=== PATIENT | female | born 1970 | race Caucasian/White ===

== ENCOUNTER 2018-08-26 11:59 | Emergency (ER) | payer OTHER ==
[~2018-08-26] VITALS: Ht 162.6 cm; Wt 117.0 kg
[~2018-08-26 11:59] MED LIST: ALPR2TAB2 PO; DICY20TA3 PO; DICY20TA30 PO; DULO60CA6 PO; FERR325T58 PO; HYDR-3165 PO; KETO10TA PO; LANS30CA66 PO; MESA10003 RC; MIRT15TA PO; NAPR-695 PO; ONDA4TAB10 SL; ONDA4TAB12 PO; ONDA8TAB12 PO; OXYC1TAB15 PO; POLY17PO5 PO; PRAM15FO5 TP; PROM25TA10 PO; SIMV40TA PO; TRAM50TA PO
[2018-08-26] MEDS ORDERED: IBUPROFEN 600 MG TABLET. PO ONE (12:15)
[2018-08-26] MEDS ORDERED: ONDANSETRON PF 4 MG/2 ML VIAL. IV ONE (12:15)
[2018-08-26] MEDS ORDERED: IV NORMAL SALINE 1,000ML 1,000 ML IV ONE (12:15)
--- NOTE | 2018-08-26 12:21 | PHYS DOC ---
Past History Past Medical History: Anemia, Anxiety, GERD, High Cholesterol, Kidney Stones, Other Past Surgical History: Appendectomy, Cholecystectomy, Hysterectomy, Other Smoking: Non-smoker, Quit Greater Than 1 Year Alcohol Use: Occasionally Drug Use: None Adult General Chief Complaint Chief Complaint: FLANK PAIN HPI HPI Patient is a 47-year-old female presents complaining of right flank pain that radiates to her right front. It waxes and wanes. Started approximately 9 AM. No relief with acetaminophen. No nausea or vomiting. No dysuria, urgency, or frequency. No fever. Similar to her previous kidney stone on the right side. Pain is moderate to severe in intensity when it is at its maximum. She denies any diarrhea, black tarry stools, nor blood in her stool. No nausea or vomiting.[] Review of Systems Review of Systems Constitutional: Denies fever or chills [] Eyes: Denies change in visual acuity, redness, or eye pain [] HENT: Denies nasal congestion or sore throat [] Respiratory: Denies cough or shortness of breath [] Cardiovascular: No chest pain or palpitations[] GI: Denies nausea, vomiting, bloody stools or diarrhea, see history of present illness [] : Denies dysuria or hematuria [] Musculoskeletal: Denies back pain or joint pain [] Integument: Denies rash or skin lesions [] Neurologic: Denies headache, focal weakness or sensory changes [] Endocrine: Denies polyuria or polydipsia [] All other systems were reviewed and found to be within normal limits, except as documented in this note. Current Medications Current Medications Current Medications Medications (Trade) Dose Ordered Sig/Enrike Start Time Stop Time Status Last Admin Dose Admin Ibuprofen (Motrin) 600 mg 1X ONCE 08/26/18 12:15 08/26/18 12:16 UNV Ondansetron HCl (Zofran) 4 mg 1X ONCE 08/26/18 12:15 08/26/18 12:16 UNV Sodium Chloride 1,000 ml @ 1,000 mls/hr 1X ONCE 08/26/18 12:15 08/26/18 13:14 UNV Allergies Allergies Allergies Coded Allergies Type Severity Reaction Last Updated Verified cephalexin Allergy Intermediate "ears burn/rash on neck" 08/26/18 Yes ketorolac Allergy Unknown Hives 08/26/18 Yes prochlorperazine Allergy Unknown 08/26/18 Yes Physical Exam Physical Exam Constitutional: Well developed, well nourished, no acute distress, non-toxic ap pearance. [] HENT: Normocephalic, atraumatic, bilateral external ears normal, oropharynx moist, no oral exudates, nose normal. [] Eyes: PERRLA, EOMI, conjunctiva normal, no discharge. [] Neck: Normal range of motion, no tenderness, supple, no stridor. [] Cardiovascular:Heart rate regular rhythm, no murmur [] Lungs & Thorax: Bilateral breath sounds clear to auscultation [] Abdomen: Bowel sounds normal, soft, no tenderness, no masses, no pulsatile masses. [] Skin: Warm, dry, no erythema, no rash. [] Back: No tenderness, mild right CVA tenderness. [] Extremities: No tenderness, no cyanosis, no clubbing, ROM intact, no edema. [] Neurologic: Alert and oriented X 3, normal motor function, normal sensory function, no focal deficits noted. [] Psychologic: Affect normal, judgement normal, mood normal. [] Current Patient Data Vital Signs Vital Signs Date Time Temp Pulse Resp B/P (MAP) Pulse Ox O2 Delivery O2 Flow Rate FiO2 08/26/18 12:08 98.8 160 18 99 Room Air EKG EKG [] Radiology/Procedures Radiology/Procedures PROCEDURE: CT ABDOMEN PELVIS WO CONTRAST CT scan of the abdomen and pelvis without contrast 08/26/2018 CLINICAL HISTORY: Right flank pain. TECHNIQUE: Unenhanced, contiguous, 3 mm axial sections were obtained to the abdomen and pelvis. One or more of the following individualized dose reduction techniques were utilized for this study: 1. Automated exposure control. 2. Adjustment of the mA and/or kV according to patient size. 3. Use of iterative reconstruction technique. FINDINGS: Comparison study is dated 04/06/2015 Images through the lung bases are within normal limits. The liver parenchyma has a decreased attenuation consistent with fatty infiltration. The spleen, pancreas, and adrenal glands are within normal limits. No renal or ureteral calculus is seen. There is no evidence of obstruction of either collecting system. Atherosclerotic calcification of the abdominal aorta and its branches is noted. The abdominal aorta tapers normally. Surgical clips are seen within the gallbladder fossa consistent with a cholecystectomy. Surgical clips are seen medial to the cecum consistent with an appendectomy. No free fluid or free air is seen within the abdomen. There is no evidence of bowel obstruction. A small fat-containing umbilical hernia is seen. This measures 2.6 cm in size. Images through the pelvis demonstrate the urinary bladder distended with urine. No free fluid is seen. Very mild S-shaped curvature of the thoracolumbar spine is noted. Degenerative changes are seen involving the lower thoracic and throughout the lumbar spine and both hips. IMPRESSION: No acute abnormality is seen. [] Course & Med Decision Making Course & Med Decision Making Pertinent Labs and Imaging studies reviewed. (See chart for details) Medical decision making: There is no evidence of obstruction, perforation, obstructing stone, nor urinary tract infection/pyelonephritis. No evidence of a surgical pathology. We'll address her pain with oral, outpatient pain medicine. ED course: Patient arrived, was placed in bed, and tolerated exam well. She was transported to and from radiology with any complications. After the return of the laboratory and imaging findings, these were discussed with the patient voiced understanding. All questions were answered. She was discharged in improved condition.[] Dragon Disclaimer Dragon Disclaimer This electronic medical record was generated, in whole or in part, using a voice recognition dictation system. Departure Departure: Impression: Primary Impression: Right flank pain Disposition: 01 HOME, SELF-CARE Condition: IMPROVED Referrals: FRANCIS SANCHEZ MD (PCP) Follow-up in 2 days Patient Instructions: Flank Pain Additional Instructions: Follow-up with your regular doctor in 2 days. Drink plenty of fluids. Return to the ER if worsening discomfort or any other concerns. Scripts Tramadol Hcl (TRAMADOL HCL) 50 Mg Tablet 50 MG PO PRN Q6HRS PRN for PAIN, #20 TAB Prov: JANAE THIBODEAUX DO 08/26/18 Phenazopyridine Hcl (PYRIDIUM) 100 Mg Tablet 100 MG PO TID for flank pain for 2 Days, #6 TAB Prov: JANAE THIBODEAUX DO 08/26/18 Meloxicam (MELOXICAM) 7.5 Mg Tablet 7.5 MG PO DAILY for PAIN, #20 TAB Prov: JANAE THIBODEAUX DO 08/26/18 Hyoscyamine Sulfate (LEVSIN) 0.125 Mg Tablet 0.125 MG PO QID for abdominal pain/cramping, #30 TAB Prov: JANAE THIBODEAUX DO 08/26/18 JANAE THIBODEAUX DO Aug 26, 2018 12:21
--- NOTE | 2018-08-26 12:49 | RAD ---
CT scan of the abdomen and pelvis without contrast 08/26/2018 CLINICAL HISTORY: Right flank pain. TECHNIQUE: Unenhanced, contiguous, 3 mm axial sections were obtained to the abdomen and pelvis. One or more of the following individualized dose reduction techniques were utilized for this study: 1. Automated exposure control. 2. Adjustment of the mA and/or kV according to patient size. 3. Use of iterative reconstruction technique. FINDINGS: Comparison study is dated 04/06/2015 Images through the lung bases are within normal limits. The liver parenchyma has a decreased attenuation consistent with fatty infiltration. The spleen, pancreas, and adrenal glands are within normal limits. No renal or ureteral calculus is seen. There is no evidence of obstruction of either collecting system. Atherosclerotic calcification of the abdominal aorta and its branches is noted. The abdominal aorta tapers normally. Surgical clips are seen within the gallbladder fossa consistent with a cholecystectomy. Surgical clips are seen medial to the cecum consistent with an appendectomy. No free fluid or free air is seen within the abdomen. There is no evidence of bowel obstruction. A small fat-containing umbilical hernia is seen. This measures 2.6 cm in size. Images through the pelvis demonstrate the urinary bladder distended with urine. No free fluid is seen. Very mild S-shaped curvature of the thoracolumbar spine is noted. Degenerative changes are seen involving the lower thoracic and throughout the lumbar spine and both hips. IMPRESSION: No acute abnormality is seen. Electronically signed by: Elvin Braswell MD (08/26/2018 12:46 PM) [id number]
[2018-08-26 12:51] LABS: COLOR,URINE YELLOW
[2018-08-26 12:52] LABS: BACTERIA,URINE 0 /HPF (0-FEW); BILIRUBIN,URINE NEG (NEG); CLARITY,URINE HAZY; GLUCOSE,URINE NEG (NEG); NITRITE,URINE NEG (NEG); RBC,URINE >40 /HPF (0-2); SQUAMOUS EPITHELIAL CELL,UR OCC /LPF; UROBILINOGEN,URINE 0.2 mg/dL (0.2 mg/dL); WBC,URINE 0 /HPF (0-4)
[2018-08-26 13:19] LABS: CALCIUM 8.8 mg/dL (8.5-10.1); CREATININE 0.8 mg/dL (0.6-1.0); GFR 76.2; POTASSIUM 3.8 mmol/L (3.5-5.1)
[2018-08-26 13:38] LABS: BASO % 0 % (0-3); EOS # 0.1 x10^3/uL (0.0-0.7); EOS % 2 % (0-3); HEMATOCRIT 24.1 % (36.0-47.0); HEMOGLOBIN 7.4 g/dL (12.0-15.5); LYMPH # 0.5 x10^3/uL (1.0-4.8); LYMPH % 10 % (24-48); MEAN CORPUSCULAR HEMOGLOBIN 21 pg (25-35); MEAN CORPUSCULAR HGB CONC 31 g/dL (31-37); MEAN CORPUSCULAR VOLUME 69 fL (79-100); MONO # 0.3 x10^3/uL (0.0-1.1); MONO % 7 % (0-9); NEUT % 81 % (31-73); PLATELET COUNT 280 x10^3/uL (140-400); RED BLOOD COUNT 3.49 x10^6/uL (3.50-5.40); RED CELL DISTRIBUTION WIDTH 17.6 % (11.5-14.5); WHITE BLOOD COUNT 4.9 x10^3/uL (4.0-11.0)
[2018-08-26] MEDS ORDERED: PHEN100T82 PO (13:52)
[2018-08-26] MEDS ORDERED: HYOS0.1264 PO (13:52)
[2018-08-26] MEDS ORDERED: MELO7.5T29 PO (13:52)
[2018-08-26] MEDS ORDERED: TRAM50TA PO (14:07)
[2018-08-26 14:15] VITALS: BP 158/102
[2018-08-26 14:49] LABS: ANISOCYTOSIS MOD; HYPOCHROMIA MOD; MICROCYTOSIS MOD; PLT ESTIMATE ADEQUATE (ADEQUATE)
== END 2018-08-26 14:26 | disposition home or self-care (01) ==
LOC: ER 11:59
DX: R10.9 Unspecified abdominal pain (principal); F41.9 Anxiety disorder, unspecified; K21.9 Gastro-esophageal reflux disease without esophagitis; E78.00 Pure hypercholesterolemia, unspecified; Z87.442 Personal history of urinary calculi; Z86.2 Personal history of diseases of the blood and blood-forming organs and certain disorders involving the immune mechanism; Z90.49 Acquired absence of other specified parts of digestive tract; Z90.89 Acquired absence of other organs; Z90.710 Acquired absence of both cervix and uterus; Z87.891 Personal history of nicotine dependence; Z88.1 Allergy status to other antibiotic agents; Z88.8 Allergy status to other drugs, medicaments and biological substances
CPT/HCPCS: 36415; 74176; 80048; 81001; 85025; 96374; 99285; J2405; J7030

== ENCOUNTER 2019-01-22 18:14 | Emergency (ER) | payer OTHER ==
[~2019-01-22] VITALS: Ht 162.6 cm; Wt 113.4 kg
[~2019-01-22 18:14] MED LIST changes: +HYOS0.1264 PO; +MELO7.5T29 PO; +PHEN100T82 PO
[2019-01-22] MEDS ORDERED: IV NORMAL SALINE 1,000ML 1,000 ML IV SCH (19:20)
--- NOTE | 2019-01-22 19:26 | PHYS DOC ---
Past History Past Medical History: Anemia, Anxiety, GERD, High Cholesterol, Kidney Stones, Other Additional Past Medical Histor: ulcerative colitis Past Surgical History: Appendectomy, Cholecystectomy, Hysterectomy, Other Smoking: Non-smoker, Quit Greater Than 1 Year Alcohol Use: Occasionally Drug Use: None Adult General Chief Complaint Chief Complaint: ABDOMINAL PAIN HPI HPI Patient is a 48-year-old female presents with left lower quadrant abdominal pain that began at approximately 8:00 this morning. She has a history of ulcerative colitis but reports that this pain is not like her usual ulcerative colitis discomfort. She is currently on sulfasalazine. Notes that she had some blood in her stool. Nothing she has done has made the pain any better or any worse. She denies any dysuria or hematuria. Denies any travel. Denies any fever. Denies any sick family members with similar symptoms. Surgical history is significant for cholecystectomy, appendectomy, and hysterectomy.[] Review of Systems Review of Systems Constitutional: Denies fever or chills [] Eyes: Denies change in visual acuity, redness, or eye pain [] HENT: Denies nasal congestion or sore throat [] Respiratory: Denies cough or shortness of breath [] Cardiovascular: No chest pain or palpitations[] GI: See history of present illness[] : Denies dysuria or hematuria [] Musculoskeletal: Denies back pain or joint pain [] Integument: Denies rash or skin lesions [] Neurologic: Denies headache, focal weakness or sensory changes [] Endocrine: Denies polyuria or polydipsia [] All other systems were reviewed and found to be within normal limits, except as documented in this note. Allergies Allergies Allergies Coded Allergies Type Severity Reaction Last Updated Verified cephalexin Allergy Intermediate "ears burn/rash on neck" 08/26/18 Yes ketorolac Allergy Unknown Hives 08/26/18 Yes prochlorperazine Allergy Unknown 08/26/18 Yes Physical Exam Physical Exam Constitutional: Well developed, well nourished, no acute distress, non-toxic appearance. [] HENT: Normocephalic, atraumatic, bilateral external ears normal, oropharynx moist, no oral exudates, nose normal. [] Eyes: PERRLA, EOMI, conjunctiva normal, no discharge. [] Neck: Normal range of motion, no tenderness, supple, no stridor. [] Cardiovascular:Heart rate regular rhythm, no murmur [] Lungs & Thorax: Bilateral breath sounds clear to auscultation [] Abdomen: Bowel sounds normal, soft, tenderness in left lower quadrant, no rebound, no guarding, no rigidity, able to sit up and lie back without any difficulty, no masses, no pulsatile masses. Rectal exam performed with catapult and arresting gear officer: No external lesions, no stool in the vault, no significant tenderness on rectal exam. No gross bleeding.[] Skin: Warm, dry, no erythema, no rash. [] Back: No tenderness, no CVA tenderness. [] Extremities: No tenderness, no cyanosis, no clubbing, ROM intact, no edema. [] Neurologic: Alert and oriented X 3, normal motor function, normal sensory function, no focal deficits noted. [] Psychologic: Affect normal, judgement normal, mood normal. [] EKG EKG [] Radiology/Procedures Radiology/Procedures PROCEDURE: CT ABD PELV W/ IV CONTRST ONLY CT abdomen pelvis with contrast dated 01/22/2019. Comparison made to 08/26/2018. CLINICAL INDICATION: Left lower quadrant pain. History of ulcerative colitis. TECHNIQUE: Contiguous axial imaging the abdomen and pelvis performed after the administration of 75 cc Omnipaque 300. One or more of the following individualized dose reduction techniques were utilized for this examination: 1. Automated exposure control 2. Adjustment of the mA and/or kV according to patient size 3. Use of iterative reconstruction technique. FINDINGS: Limited images of lung bases are clear. Heart size within normal limits. No pleural or pericardial effusion. Diffuse low-density of the liver, compatible with fatty infiltration. No apparent mass. Biliary tree normal in caliber. The gallbladder is surgically absent. Spleen is normal in size. Pancreas, adrenal glands and kidneys are unremarkable. No hydronephrosis. Unopacified GI tract normal in caliber and contour. No focal bowel wall thickening. There is some fatty replacement of the submucosa involving the rectum and sigmoid. No acute inflammatory changes. The appendix is surgically absent. Small bowel unremarkable. No adenopathy or ascites. Abdominal aorta normal in caliber. Small periumbilical ventral hernia containing only fat. Images of pelvis show nondistended urinary bladder. The uterus is surgically absent. No free fluid or lymphadenopathy. Bone windows show no acute findings. Multilevel spondylosis. IMPRESSION: 1. No acute abnormality of abdomen or pelvis. 2. There is some fatty replacement of the submucosa involving the rectosigmoid colon, likely related to prior episodes of inflammation. There are no acute inflammatory changes at this time. 3. Status post cholecystectomy, hysterectomy and appendectomy. 4. Fatty infiltration of the liver.[] Course & Med Decision Making Course & Med Decision Making Pertinent Labs and Imaging studies reviewed. (See chart for details) ED course: Patient arrived, was placed in bed, in tolerated exam well. She was transported to and from [place] with any consultations. After the return of laboratory and imaging findings, these were discussed with the patient voiced understanding. All questions were answered. She was discharged in improved condition. Medical decision making: There is no evidence of obstruction, perforation, diverticulitis, nor any significant inflammatory process on imaging at this time. No evidence of significant electrolyte abnormality. There is no gross bleeding on rectal exam. While her hemoglobin is low it is actually good for her given that her range most recently was 7.4 this summer, and the highest within the past 5 years was 11.8. Additionally her BUN to creatinine ratio is in the normal range indicating no significant protein absorption consistent with an upper GI bleed of significance. No evidence of pancreatitis. Patient already has had an appendectomy as well as hysterectomy.[] Dragon Disclaimer Dragon Disclaimer This electronic medical record was generated, in whole or in part, using a voice recognition dictation system. Departure Departure: Impression: Primary Impression: Abdominal pain Disposition: 01 HOME, SELF-CARE Condition: GOOD Referrals: PCP,UNKNOWN (PCP) Patient Instructions: Abdominal Pain Additional Instructions: Follow-up with your regular doctor and GI specialist tomorrow. There is no evidence of any significant bleeding, no diverticulitis, no obstruction or perforation on laboratory testing and imaging. Scripts Oxaprozin (OXAPROZIN) 600 Mg Tablet 600 MG PO BID for pain, #20 TAB Prov: JANAE THIBODEAUX DO 01/22/19 Hyoscyamine Sulfate (LEVSIN) 0.125 Mg Tablet 0.125 MG PO QID for abdominal pain/cramping, #30 TAB Prov: JANAE THIBODEAUX DO 01/22/19 Problem Qualifiers Primary Impression: Abdominal pain Abdominal location: left lower quadrant Qualified Codes: R10.32 - Left lower quadrant pain JANAE THIBODEAUX DO Jan 22, 2019 19:26
[2019-01-22] MEDS ORDERED: IOHEXOL 300 MG/ML 75 ML VIAL. IV ONE (19:30)
[2019-01-22] MEDS ORDERED: CONTRAST GIVEN MC PRN (19:30)
[2019-01-22 20:21] LABS: BASO # 0.1 x10^3/uL (0.0-0.2); BASO % 1 % (0-3); EOS # 0.1 x10^3/uL (0.0-0.7); EOS % 1 % (0-3); HEMOGLOBIN 10.6 g/dL (12.0-15.5); LYMPH # 0.8 x10^3/uL (1.0-4.8); LYMPH % 10 % (24-48); MEAN CORPUSCULAR HEMOGLOBIN 24 pg (25-35); MEAN CORPUSCULAR HGB CONC 31 g/dL (31-37); MEAN CORPUSCULAR VOLUME 76 fL (79-100); MONO # 0.6 x10^3/uL (0.0-1.1); MONO % 8 % (0-9); NEUT # 6.2 x10^3uL (1.8-7.7); NEUT % 80 % (31-73); PLATELET COUNT 293 x10^3/uL (140-400); RED CELL DISTRIBUTION WIDTH 19.2 % (11.5-14.5); WHITE BLOOD COUNT 7.7 x10^3/uL (4.0-11.0)
[2019-01-22 20:22] LABS: AMPHETAMINE/METHAMPHETAMINE NEG (NEG); BARBITURATES NEG (NEG); BENZODIAZEPINES POS (NEG); CANNABINOIDS POS (NEG); COCAINE NEG (NEG); METHADONE NEG (NEG); OPIATES NEG (NEG); PHENCYCLIDINE NEG (NEG)
[2019-01-22 20:30] LABS: BACTERIA,URINE 0 /HPF (0-FEW); BILIRUBIN,URINE NEG (NEG); CLARITY,URINE CLEAR; COLOR,URINE YELLOW; GLUCOSE,URINE NEG (NEG); NITRITE,URINE NEG (NEG); RBC,URINE RARE /HPF (0-2); SQUAMOUS EPITHELIAL CELL,UR OCC /LPF; UROBILINOGEN,URINE 0.2 mg/dL (0.2 mg/dL); WBC,URINE RARE /HPF (0-4)
[2019-01-22 20:35] LABS: ALBUMIN 3.3 g/dL (3.4-5.0); ALBUMIN/GLOBULIN RATIO 0.9 (1.0-1.7); ALK PHOS 116 U/L (46-116); ALT (SGPT) 13 U/L (14-59); ANION GAP 12 (6-14); BLOOD UREA NITROGEN 10 mg/dL (7-20); BUN/CREATININE RATIO 13 (6-20); CALCIUM 8.6 mg/dL (8.5-10.1); CARBON DIOXIDE 26 mmol/L (21-32); CHLORIDE 101 mmol/L (98-107); CREATININE 0.8 mg/dL (0.6-1.0); GFR 75.9; GLUCOSE 111 mg/dL (70-99); LIPASE 216 U/L (73-393); POTASSIUM 3.6 mmol/L (3.5-5.1); SODIUM 139 mmol/L (136-145); TOTAL BILIRUBIN 0.1 mg/dL (0.2-1.0); TOTAL PROTEIN 6.9 g/dL (6.4-8.2)
[2019-01-22 20:36] LABS: AST (SGOT) < 5 U/L (15-37)
--- NOTE | 2019-01-22 20:40 | RAD ---
CT abdomen pelvis with contrast dated 01/22/2019. Comparison made to 08/26/2018. CLINICAL INDICATION: Left lower quadrant pain. History of ulcerative colitis. TECHNIQUE: Contiguous axial imaging the abdomen and pelvis performed after the administration of 75 cc Omnipaque 300. One or more of the following individualized dose reduction techniques were utilized for this examination: 1. Automated exposure control 2. Adjustment of the mA and/or kV according to patient size 3. Use of iterative reconstruction technique. FINDINGS: Limited images of lung bases are clear. Heart size within normal limits. No pleural or pericardial effusion. Diffuse low-density of the liver, compatible with fatty infiltration. No apparent mass. Biliary tree normal in caliber. The gallbladder is surgically absent. Spleen is normal in size. Pancreas, adrenal glands and kidneys are unremarkable. No hydronephrosis. Unopacified GI tract normal in caliber and contour. No focal bowel wall thickening. There is some fatty replacement of the submucosa involving the rectum and sigmoid. No acute inflammatory changes. The appendix is surgically absent. Small bowel unremarkable. No adenopathy or ascites. Abdominal aorta normal in caliber. Small periumbilical ventral hernia containing only fat. Images of pelvis show nondistended urinary bladder. The uterus is surgically absent. No free fluid or lymphadenopathy. Bone windows show no acute findings. Multilevel spondylosis. IMPRESSION: 1. No acute abnormality of abdomen or pelvis. 2. There is some fatty replacement of the submucosa involving the rectosigmoid colon, likely related to prior episodes of inflammation. There are no acute inflammatory changes at this time. 3. Status post cholecystectomy, hysterectomy and appendectomy. 4. Fatty infiltration of the liver. Electronically signed by: Sebas Clarke MD (01/22/2019 8:37 PM) [facility]
[2019-01-22 20:42] LABS: % BANDS 3 % (0-9); % BASOS 1 % (0-3); % EOS 1 % (0-5); % LYMPHS 15 % (24-48); % MONOS 4 % (0-10); % MYELOS 1 % (0-0); % SEGS 75 % (35-66); ANISOCYTOSIS SLIGHT; HYPOCHROMIA SLIGHT; PLT ESTIMATE ADEQUATE (ADEQUATE); POLYCHROMASIA SLIGHT
[2019-01-22 20:43] LABS: HYPERSEGS PRESENT; MICROCYTOSIS SLIGHT; OVALOCYTES FEW
[2019-01-22 21:17] VITALS: BP 165/104
[2019-01-22] MEDS ORDERED: HYOS0.1264 PO (21:18)
[2019-01-22] MEDS ORDERED: OXAP600T2 PO (21:18)
[2019-01-22 21:28] LABS: FECAL OB PT POSITIVE (NEG)
== END 2019-01-22 21:50 | disposition home or self-care (01) ==
LOC: ER 18:14
DX: R10.32 Left lower quadrant pain (principal); K92.1 Melena; K21.9 Gastro-esophageal reflux disease without esophagitis; E78.00 Pure hypercholesterolemia, unspecified; Z87.442 Personal history of urinary calculi; Z86.2 Personal history of diseases of the blood and blood-forming organs and certain disorders involving the immune mechanism; Z90.89 Acquired absence of other organs; Z90.49 Acquired absence of other specified parts of digestive tract; Z90.710 Acquired absence of both cervix and uterus; Z87.891 Personal history of nicotine dependence; Z88.1 Allergy status to other antibiotic agents; Z88.8 Allergy status to other drugs, medicaments and biological substances
CPT/HCPCS: 36415; 74177; 80053; 80307; 81001; 82274; 83690; 85007; 85025; 85610; 85730; 96374; 96376; 99285; J3010; Q9967; J7030

== ENCOUNTER 2019-08-09 20:59 | Emergency (ER) | payer OTHER ==
[~2019-08-09] VITALS: Ht 162.6 cm; Wt 117.0 kg
[~2019-08-09 20:59] MED LIST changes: +OXAP600T2 PO
--- NOTE | 2019-08-09 21:08 | PHYS DOC ---
Past History Past Medical History: Anemia, Anxiety, GERD, High Cholesterol, Kidney Stones, Other Additional Past Medical Histor: ulcerative colitis Past Surgical History: Appendectomy, Cholecystectomy, Hysterectomy, Other Smoking: Non-smoker, Quit Greater Than 1 Year Alcohol Use: Occasionally Drug Use: None General Adult EDM: Chief Complaint: ABDOMINAL PAIN HPI: HPI: ...".. I have bad ulcerative colitis... In case you get bad flares of it... I have normal chronic abdomen pain... I been taking all my ulcerative colitis meds..... I do not think he got a bad .. after eating a hamburger ...when it started yesterday but no one else got sick... I took my sulfasalazine higher dose thousand milligrams 4 times a day and my Bentyl... But I am still having bad abdomen pain..." Patient is a 48 year old female who presents with above hx and complaints of abdomen pain and nausea. Patient has longstanding history of ulcerative colitis. Patient denies any intake of bad food. No recent travel outside [place] area. No specific ill contacts. Patient normally follows with Panda Padilla at [facility] on 435. Patient has had multiple abdomen surgeries and colonoscopies. Patient has had appendectomy cholecystectomy hysterectomy laparotomies. Patient also has a history of kidney stones and chronic GERD, constipation,, anemia, tobacco abuse, irritable bowel syndrome, high cholesterol, anxiety, and deconditioning,. The patient has had some history of behavior that appears to be narcotic seeking on review of prior ED visits. Patient has had multiple visits to emergency department for pain issues. The patient has been following at [place] for her colonoscopies. Patient has not recently been on steroids for her ulcerative colitis, but in the past has required steroid courses to get control of her ulcerative colitis. Review of Systems: Review of Systems: Constitutional: Denies fever or chills Eyes: Denies change in visual acuity HENT: Denies nasal congestion or sore throat Respiratory: Denies cough or shortness of breath Cardiovascular: Denies chest pain or edema GI: Complains of abdominal pain, nausea, vomiting,. Patient denies bloody stools or diarrhea. Some hx of constipation. : Denies dysuria Musculoskeletal: Denies back pain or joint pain Integument: Denies rash Neurologic: Denies headache, focal weakness or sensory changes Endocrine: Denies polyuria or polydipsia Lymphatic: Denies swollen glands Psychiatric: Denies depression or anxiety Heart Score: HEART Score for Chest Pain: HEART Score for Chest Pain Response (Comments) Value History Moderately Suspicious 1 ECG Nonspecific Repolarizatio 1 Age >45 - < 65 1 Risk Factors 1 or 2 Risk Factors 1 Troponin < Normal Limit 0 Total 4 Risk Factors: Risk Factors: DM, Current or recent (<one month) smoker, HTN, HLP, family history of CAD, obesity. Risk Scores: Score 0 - 3: 2.5% MACE over next 6 weeks - Discharge Home Score 4 - 6: 20.3% MACE over next 6 weeks - Admit for Clinical Observation Score 7 - 10: 72.7% MACE over next 6 weeks - Early Invasive Strategies Family History: Family History: Noncontributory to current presentation Current Medications: Current Meds: See nursing for home meds Allergies: Allergies: Allergies Coded Allergies Type Severity Reaction Last Updated Verified cephalexin Allergy Intermediate "ears burn/rash on neck" 08/26/18 Yes ketorolac Allergy Unknown Hives 08/26/18 Yes prochlorperazine Allergy Unknown 08/26/18 Yes Physical Exam: PE: Constitutional: Reports severe to moderately acute distress, non-toxic appearance. [] HENT: Normocephalic, atraumatic, bilateral external ears normal, oropharynx moist, no oral exudates, nose normal. [] Eyes: PERRLA, EOMI, conjunctiva normal, no discharge. [] Neck: Normal range of motion, no tenderness, supple, no stridor. More than 17 inches. Circumference Cardiovascular: Tachycardia heart rate regular rhythm, no murmur [] Lungs & Thorax: Bilateral breath sounds equal apex with scattered wheezes on auscultation [] Abdomen: Bowel sounds hyperactive, soft, generalized tenderness tenderness, no masses, no pulsatile masses. [] Rebound to the left lower quadrant. Multiple surgery scars. Obese. Does have a ventral hernia. Skin: Warm, dry, no erythema, no rash. [] Back: No tenderness, no CVA tenderness. [] Extremities: No tenderness, no cyanosis, no clubbing, ROM intact, ankle edema. No true psoas sign. No cording appreciated. Neurologic: Alert and oriented X 3, moves extremities on request, does have distal sensory, , no focal deficits noted. [] Psychologic: Affect anxious , judgement normal, mood normal. [] EKG: EKG: My interpretation EKG shows a sinus rhythm at 91 bpm. There is some left axis changes and incomplete right bundle branch block. There is some nonspecific contour changes. But no findings of acute STEMI with contralateral changes there is some wavering baseline. [] Radiology/Procedures: Radiology/Procedures: [[facility] [address] [place] [address] [id number] IMAGING REPORT Signed PATIENT: BETH LERNER ACCOUNT: [id number] : 1970 LOCATION: ER AGE: 48 SEX: F EXAM STATUS: REG ER ORD. PHYSICIAN: MENDEZ VALDOVINOS MD REASON: Omni 300,75ml IV.Omni 240,30ml PO.Pain.Hx ulcerative colitis PROCEDURE: CT ABD PELV W/ORAL&IV CONTRAST EXAM: CT ABDOMEN/PELVIS WITH CONTRAST. HISTORY: Abdominal pain, ulcerative colitis. TECHNIQUE: Computed tomography of the abdomen and pelvis was performed after the intravenous administration of iodinated contrast. One or more of the following individualized dose reduction techniques were utilized for this examination: 1. Automated exposure control. 2. Adjustment of the mA and/or kV according to patient size. 3. Use of iterative reconstruction technique. COMPARISON: 01/22/2019. FINDINGS: Lung windows through the visualized portions of the bases reveal an uncalcified 4 mm left lower lobe nodule on image 8, stable chronically and likely benign. Bone windows reveal a subacute appearing incompletely unified fracture of the right proximal ischium. There are no suspicious lesions. The gallbladder is surgically absent. Hypoattenuation of the hepatic parenchyma is consistent with at least mild diffuse hepatic steatosis. There is some focal fatty sparing about the gallbladder fossa. The common duct measures 10 mm. There is no evidence of distal obstruction. The pancreas, adrenal glands, kidneys and spleen are unremarkable. The appendix is surgically absent. A small supraumbilical hernia contains only fat. The uterus and ovaries are surgically absent. Asymmetric fatty infiltration of the rectal submucosa may reflect chronic inflammation in the setting of ulcerative colitis. No clear acute colonic inflammation is appreciable by CT. There is no small bowel wall thickening or obstruction. IMPRESSION: 1. No cause for acute pain is identified. 2. Subacute incompletely unified fracture of the right proximal ischium. 3. Small supraumbilical hernia containing only fat. 4. Asymmetric fatty infiltration of the distal rectal wall is consistent with chronic inflammation the setting of ulcerative colitis. Endoscopy is more sensitive for acute inflammation. 5. Diffuse hepatic steatosis. Electronically signed by: Codi Cameron MD (08/10/2019 12:55 AM) [facility] DICTATED AND SIGNED BY: ROSEMARY CAMERON MD DATE: 08/10/1954 CC: MENDEZ VALDOVINOS MD; PCP,UNKNOWN ~ ][place] [address] IMAGING REPORT Signed PATIENT: BETH LERNER ACCOUNT: [id number] : 1970 LOCATION: ER AGE: 48 SEX: F EXAM STATUS: REG ER ORD. PHYSICIAN: MENDEZ VALDOVINOS MD REASON: LLQ PAIN.Hx ULCERATIVE COLITIS PROCEDURE: ACUTE ABDOMEN SERIES EXAM: Abdomen acute complete. HISTORY: Pain. COMPARISON: None. FINDINGS: A frontal view of the chest and frontal upright and supine views of the abdomen are obtained. There is no infiltrate, pleural effusion or pneumothorax. The heart is normal in size. There is gas and stool within the colon. There is no evidence of bowel projection. There is no free air. There are cholecystectomy clips. There is increased density medial to the right acetabulum which is likely artifactual given the absence of a suspicious correlate on the comparison CT. IMPRESSION: 1. No acute pulmonary finding. 2. Nonobstructive bowel gas pattern. Electronically signed by: Tracey Grubbs MD (08/09/2019 11:14 PM) [facility] DICTATED AND SIGNED BY: TRACEY GRUBBS MD DATE: 08/09/19 6429 CC: MENDEZ VALDOVINOS MD; PCP,UNKNOWN ~ Course & Med Decision Making: Course & Med Decision Making Pertinent Labs and Imaging studies reviewed. (See chart for details) Encourage patient be admitted and placed on n.p.o. status and slow return with liquid diet. Patient refused admission at this time. Will discharge patient on Zofran 8 mg up 4 times a day for active vomiting. Prednisone course of 50 mg a day for 5 days. Levaquin 500 mg a day x5 days. Pt. also to take Flagyl 500 mg 3 times a day for the next 10 days. Stay on a clear fluid diet only. No ray ids. No milk products. Follow-up pending cultures. Patient return any concerns. Keep follow-up with GI scheduled colonoscopies. Follow-up primary care. Patient push clear fruit juices because of hypokalemia. Must review ED record with primary care. Patient continued her home ulcerative colitis meds as previously directed. Impression: 1. Abdomen pain- Acute / Chronic 2. History of ulcerative colitis 3. Hypokalemia 2.8 4. Anemia 9.8 hemoglobin 5. Drug screen positive for benzos, marijuana and opiates 6. Possible drug-seeking behaviors on review of the ED record and /or dependency.to narcotics [] Dragon Disclaimer: Dragon Disclaimer: This electronic medical record was generated, in whole or in part, using a voice recognition dictation system. Departure Departure: Disposition: HOME/RESIDENCE PRIOR TO ADM Condition: STABLE Referrals: PCP,UNKNOWN (PCP) Scripts Ondansetron Hcl (ZOFRAN) 8 Mg Tablet 8 MG PO QIDPRN PRN for active vomiting, #30 BOT Prov: MENDEZ VALDOVINOS MD 08/10/19 Metronidazole (FLAGYL) 500 Mg Tablet 500 MG PO TID for UC for 10 Days, #30 TAB Prov: MENDEZ VALDOVINOS MD 08/10/19 Levofloxacin (LEVAQUIN) 500 Mg Tablet 500 MG PO DAILY for UC for 5 Days, #5 TAB Prov: MENDEZ VALDOVINOS MD 08/10/19 Prednisone (PREDNISONE) 50 Mg Tablet 50 MG PO DAILY for UC Eacerbation for 5 Days, #5 TAB Prov: MENDEZ VALDOVINOS MD 08/10/19 Dragon Disclaimer This chart was dictated in whole or in part using Voice Recognition software in a busy, high-work load, and often noisy Emergency Department environment. It may contain unintended and wholly unrecognized errors or omissions. MENDEZ VALDOVINOS MD August 09, 2019 21:08
--- NOTE | 2019-08-09 21:41 | EKG ---
[address] [address] Test Date: 2019-08-09 Test Time: 21:36:36 Pat Name: BETH LERNER Department: Room: Gender: F Repeat Chief: : 1970 Requested By: MENDEZ VALDOVINOS Order Number: [id number] Reading MD: Andre Benson Measurements Intervals [place] Rate: 91 P: 21 RI: 162 QRS: -16 QRSD: 92 T: 13 QT: 366 QTc: 452 Interpretive Statements SINUS RHYTHM LEFTWARD AXIS INCOMPLETE RIGHT BUNDLE BRANCH BLOCK QRS(T) CONTOUR ABNORMALITY CONSIDER INFERIOR INFARCT T ABNORMALITY IN ANTEROSEPTAL LEADS ABNORMAL ECG Electronically Signed On 08-11-2019 15:47:08 CDT by Andre Benson
[2019-08-09] MEDS ORDERED: ONDANSETRON PF 4 MG/2 ML VIAL. IVP ONE (22:00)
[2019-08-09] MEDS ORDERED: levoFLOXacin 500 MG TABLET PO ONE (22:00)
[2019-08-09] MEDS ORDERED: IV RINGERS SOLUTION,LACTATED 1,000 ML IV SCH (22:00)
[2019-08-09] MEDS ORDERED: methylPREDNISolone SOD SUCC PF 125 MG/2 ML VIAL. IV ONE (22:00)
[2019-08-09] MEDS ORDERED: MORPHINE SULFATE 10 MG/ML SYRINGE. SQ ONE (22:00)
[2019-08-09] MEDS ORDERED: IOHEXOL 240 MG/ML 50ML VIAL. ONE (22:04)
[2019-08-09 22:12] LABS: BASO % 1 % (0-3); EOS # 0.1 x10^3/uL (0.0-0.7); EOS % 1 % (0-3); HEMATOCRIT 31.2 % (36.0-47.0); HEMOGLOBIN 9.8 g/dL (12.0-15.5); LYMPH # 0.8 x10^3/uL (1.0-4.8); LYMPH % 10 % (24-48); MEAN CORPUSCULAR HEMOGLOBIN 26 pg (25-35); MEAN CORPUSCULAR HGB CONC 32 g/dL (31-37); MEAN CORPUSCULAR VOLUME 81 fL (79-100); MONO # 0.6 x10^3/uL (0.0-1.1); MONO % 7 % (0-9); NEUT # 6.5 x10^3uL (1.8-7.7); NEUT % 81 % (31-73); PLATELET COUNT 269 x10^3/uL (140-400); RED BLOOD COUNT 3.86 x10^6/uL (3.50-5.40); RED CELL DISTRIBUTION WIDTH 14.9 % (11.5-14.5); WHITE BLOOD COUNT 8.1 x10^3/uL (4.0-11.0)
[2019-08-09 22:12] LABS: BARBITURATES NEG (NEG); BENZODIAZEPINES POS (NEG); CANNABINOIDS POS (NEG); COCAINE NEG (NEG); METHADONE NEG (NEG); OPIATES POS (NEG); PHENCYCLIDINE NEG (NEG)
[2019-08-09] MEDS ORDERED: CONTRAST GIVEN MC PRN (22:15)
[2019-08-09 22:21] LABS: BACTERIA,URINE FEW /HPF (0-FEW); BILIRUBIN,URINE NEG (NEG); CLARITY,URINE CLEAR; COLOR,URINE YELLOW; GLUCOSE,URINE NEG (NEG); NITRITE,URINE NEG (NEG); RBC,URINE OCC /HPF (0-2); SQUAMOUS EPITHELIAL CELL,UR FEW /LPF; UROBILINOGEN,URINE 0.2 mg/dL (0.2 mg/dL); WBC,URINE 0 /HPF (0-4)
[2019-08-09 22:26] LABS: AMPHETAMINE/METHAMPHETAMINE NEG (NEG)
[2019-08-09 22:26] LABS: ALBUMIN 3.4 g/dL (3.4-5.0); C REACTIVE PROTEIN 2.9 mg/L (0-3.3); CALCIUM 8.7 mg/dL (8.5-10.1); CREATININE 0.8 mg/dL (0.6-1.0); DIRECT BILIRUBIN 0.1 mg/dL (0.0-0.2); GFR 75.9; TOTAL BILIRUBIN 0.2 mg/dL (0.2-1.0); TOTAL PROTEIN 6.8 g/dL (6.4-8.2)
[2019-08-09] MEDS ORDERED: IOHEXOL 300 MG/ML 75 ML VIAL. IV ONE (22:30)
[2019-08-09 22:32] LABS: POTASSIUM 2.8 mmol/L (3.5-5.1)
--- NOTE | 2019-08-09 23:17 | RAD ---
EXAM: Abdomen acute complete. HISTORY: Pain. COMPARISON: None. FINDINGS: A frontal view of the chest and frontal upright and supine views of the abdomen are obtained. There is no infiltrate, pleural effusion or pneumothorax. The heart is normal in size. There is gas and stool within the colon. There is no evidence of bowel projection. There is no free air. There are cholecystectomy clips. There is increased density medial to the right acetabulum which is likely artifactual given the absence of a suspicious correlate on the comparison CT. IMPRESSION: 1. No acute pulmonary finding. 2. Nonobstructive bowel gas pattern. Electronically signed by: Tracey Horn MD (08/09/2019 11:14 PM) [facility]
[2019-08-10] MEDS ORDERED: POTASSIUM CHLORIDE 20 MEQ TABLET.ER. PO ONE
--- NOTE | 2019-08-10 00:58 | RAD ---
EXAM: CT ABDOMEN/PELVIS WITH CONTRAST. HISTORY: Abdominal pain, ulcerative colitis. TECHNIQUE: Computed tomography of the abdomen and pelvis was performed after the intravenous administration of iodinated contrast. One or more of the following individualized dose reduction techniques were utilized for this examination: 1. Automated exposure control. 2. Adjustment of the mA and/or kV according to patient size. 3. Use of iterative reconstruction technique. COMPARISON: 01/22/2019. FINDINGS: Lung windows through the visualized portions of the bases reveal an uncalcified 4 mm left lower lobe nodule on image 8, stable chronically and likely benign. Bone windows reveal a subacute appearing incompletely unified fracture of the right proximal ischium. There are no suspicious lesions. The gallbladder is surgically absent. Hypoattenuation of the hepatic parenchyma is consistent with at least mild diffuse hepatic steatosis. There is some focal fatty sparing about the gallbladder fossa. The common duct measures 10 mm. There is no evidence of distal obstruction. The pancreas, adrenal glands, kidneys and spleen are unremarkable. The appendix is surgically absent. A small supraumbilical hernia contains only fat. The uterus and ovaries are surgically absent. Asymmetric fatty infiltration of the rectal submucosa may reflect chronic inflammation in the setting of ulcerative colitis. No clear acute colonic inflammation is appreciable by CT. There is no small bowel wall thickening or obstruction. IMPRESSION: 1. No cause for acute pain is identified. 2. Subacute incompletely unified fracture of the right proximal ischium. 3. Small supraumbilical hernia containing only fat. 4. Asymmetric fatty infiltration of the distal rectal wall is consistent with chronic inflammation the setting of ulcerative colitis. Endoscopy is more sensitive for acute inflammation. 5. Diffuse hepatic steatosis. Electronically signed by: Codi Cameron MD (08/10/2019 12:55 AM) [facility]
[2019-08-10] MEDS ORDERED: MORPHINE SULFATE 10 MG/ML SYRINGE. SQ ONE (01:45)
[2019-08-10] MEDS ORDERED: PRED50TA PO (01:52)
[2019-08-10] MEDS ORDERED: METR500T PO (01:52)
[2019-08-10] MEDS ORDERED: LEVO500T59 PO (01:52)
[2019-08-10] MEDS ORDERED: ONDA8TAB9 PO (01:52)
[2019-08-10 02:10] VITALS: BP 167/118
== END 2019-08-10 02:10 | disposition home or self-care (01) ==
LOC: ER 20:59
DX: R10.32 Left lower quadrant pain (principal); R11.2 Nausea with vomiting, unspecified; E87.6 Hypokalemia; D64.9 Anemia, unspecified; F12.10 Cannabis abuse, uncomplicated; F14.10 Cocaine abuse, uncomplicated; F19.10 Other psychoactive substance abuse, uncomplicated; K21.9 Gastro-esophageal reflux disease without esophagitis; E78.00 Pure hypercholesterolemia, unspecified; Z87.442 Personal history of urinary calculi; Z86.2 Personal history of diseases of the blood and blood-forming organs and certain disorders involving the immune mechanism; Z87.891 Personal history of nicotine dependence; Z90.89 Acquired absence of other organs; Z90.49 Acquired absence of other specified parts of digestive tract; Z90.710 Acquired absence of both cervix and uterus; Z88.1 Allergy status to other antibiotic agents; Z88.8 Allergy status to other drugs, medicaments and biological substances
CPT/HCPCS: 36415; 74022; 74177; 80048; 80076; 80307; 81001; 82150; 82550; 83690; 84484; 85025; 85610; 85730; 86140; 87040; 93005; 96365; 96372; 96375; 99285; J2270; J2405; J2930; J3490; J7120; Q9967

== ENCOUNTER 2019-08-25 20:36 | Emergency (ER) | payer OTHER ==
[~2019-08-25] VITALS: Ht 162.6 cm; Wt 114.0 kg
[~2019-08-25 20:36] MED LIST changes: +LEVO500T59 PO; +METR500T PO; +ONDA8TAB9 PO; +PRED50TA PO
[2019-08-25 20:40] VITALS: BP 151/105
[2019-08-25] MEDS ORDERED: IV NORMAL SALINE 1,000ML 1,000 ML IV SCH (20:52)
[2019-08-25] MEDS ORDERED: ONDANSETRON PF 4 MG/2 ML VIAL. IVP ONE (21:00)
[2019-08-25] MEDS ORDERED: 0.9 % SODIUM CHLORIDE 10 ML DISP.SYRIN. IV PRN (21:00)
--- NOTE | 2019-08-25 21:03 | PHYS DOC ---
Past History Past Medical History: Anemia, Anxiety, Depression, GERD, High Cholesterol, Kidney Stones, Other Additional Past Medical Histor: ulcerative colitis Past Surgical History: Appendectomy, Cholecystectomy, Hysterectomy, Other Additional Past Surgical Histo: umbilical hernia repair Smoking: Non-smoker, Quit Greater Than 1 Year Alcohol Use: Occasionally Drug Use: None General Adult EDM: Chief Complaint: ABDOMINAL PAIN HPI: HPI: Patient is a 48 year old female who presents for evaluation of repeated episodes of nausea and vomiting and nonbloody diarrhea since about 11 AM today. Patient has moderate left lower quadrant abdominal tenderness. Patient has a known history of ulcerative colitis. She has increased her sulfasalazine and Bentyl dose with minimal improvement of symptoms. Her last flareup was about 3 to 4 weeks ago. Patient sees a police officer booking at [facility]. Patient has a prior history of anemia as well. Patient denies any black, bloody or tarry stools. She states she did vomit about 4 times today. She is in mild to moderate distress on arrival Review of Systems: Review of Systems: Constitutional: Denies fever or chills Eyes: Denies change in visual acuity HENT: Denies nasal congestion or sore throat Respiratory: Denies cough or shortness of breath Cardiovascular: Denies chest pain or edema GI: Has abdominal pain with nausea, vomiting and diarrhea, no bloody stools : Denies dysuria Musculoskeletal: Denies back pain or joint pain Integument: Denies rash Neurologic: Denies headache, focal weakness or sensory changes Endocrine: Denies polyuria or polydipsia Lymphatic: Denies swollen glands Psychiatric: Denies depression or anxiety Heart Score: Risk Factors: Risk Factors: DM, Current or recent (<one month) smoker, HTN, HLP, family history of CAD, obesity. Risk Scores: Score 0 - 3: 2.5% MACE over next 6 weeks - Discharge Home Score 4 - 6: 20.3% MACE over next 6 weeks - Admit for Clinical Observation Score 7 - 10: 72.7% MACE over next 6 weeks - Early Invasive Strategies Current Medications: Current Meds: Current Medications Medications (Trade) Dose Ordered Sig/Enrike Start Time Stop Time Status Last Admin Dose Admin Fentanyl Citrate (Fentanyl 2ml Vial) 50 mcg 1X ONCE 08/25/19 21:00 08/25/19 21:01 UNV Ondansetron HCl (Zofran) 4 mg 1X ONCE 08/25/19 21:00 08/25/19 21:01 UNV Sodium Chloride (Normal Saline Flush) 10 ml QSHIFT PRN 08/25/19 21:00 UNV Allergies: Allergies: Allergies Coded Allergies Type Severity Reaction Last Updated Verified cephalexin Allergy Intermediate "ears burn/rash on neck" 08/26/18 Yes ketorolac Allergy Intermediate Hives 08/09/19 Yes prochlorperazine Allergy Intermediate 08/09/19 Yes Physical Exam: PE: Constitutional: Well developed, well nourished, moderate acute distress, non- toxic appearance. [] HENT: Normocephalic, atraumatic, bilateral external ears normal, oropharynx moist, no oral exudates, nose normal. [] Eyes: PERRL, EOMI, conjunctiva normal, no discharge. [] Neck: Normal range of motion, no tenderness, supple, no stridor. [] Cardiovascular:Heart tachy rate with regular rhythm, no murmur [] Lungs & Thorax: Bilateral breath sounds clear to auscultation [] Abdomen: Bowel sounds normal, soft, tender LLQ, no masses [] Skin: Warm, dry, no erythema, no rash. [] Back: No tenderness, no CVA tenderness. [] Extremities: No tenderness, no cyanosis, no clubbing, ROM intact, no edema. [] Neurologic: Alert and oriented X 3, normal motor function, normal sensory function, no focal deficits noted. [] Psychologic: Affect normal, judgement normal, anxious mood. [] Current Patient Data: Vital Signs: Laboratory Tests Test 08/25/19 21:09 08/25/19 21:50 White Blood Count 4.4 x10^3/uL Red Blood Count 3.86 x10^6/uL Hemoglobin 9.9 g/dL Hematocrit 30.8 % Mean Corpuscular Volume 80 fL Mean Corpuscular Hemoglobin 26 pg Mean Corpuscular Hemoglobin Concent 32 g/dL Red Cell Distribution Width 15.6 % Platelet Count 277 x10^3/uL Neutrophils (%) (Auto) 77 % Lymphocytes (%) (Auto) 13 % Monocytes (%) (Auto) 9 % Eosinophils (%) (Auto) 1 % Basophils (%) (Auto) 0 % Neutrophils # (Auto) 3.4 x10^3uL Lymphocytes # (Auto) 0.6 x10^3/uL Monocytes # (Auto) 0.4 x10^3/uL Eosinophils # (Auto) 0.0 x10^3/uL Basophils # (Auto) 0.0 x10^3/uL Sodium Level 139 mmol/L Potassium Level 3.2 mmol/L Chloride Level 101 mmol/L Carbon Dioxide Level 30 mmol/L Anion Gap 8 Blood Urea Nitrogen 12 mg/dL Creatinine 0.8 mg/dL Estimated GFR (Cockcroft-Gault) 75.9 BUN/Creatinine Ratio 15 Glucose Level 159 mg/dL Calcium Level 8.2 mg/dL Total Bilirubin 0.2 mg/dL Aspartate Amino Transf (AST/SGOT) 9 U/L Alanine Aminotransferase (ALT/SGPT) 29 U/L Alkaline Phosphatase 87 U/L Troponin I Quantitative < 0.017 ng/mL Total Protein 6.6 g/dL Albumin 3.3 g/dL Albumin/Globulin Ratio 1.0 Lipase 267 U/L Urine Collection Type Unknown Urine Color Yellow Urine Clarity Clear Urine pH 7.0 Urine Specific [place] 1.025 Urine Protein Neg Urine Glucose (UA) 100 mg/dL Urine Ketones (Stick) Neg mg/dL Urine Blood Neg Urine Nitrite Neg Urine Bilirubin Neg Urine Urobilinogen Dipstick 0.2 mg/dL Urine Leukocyte Esterase Neg Urine RBC 1-2 /HPF Urine WBC 0 /HPF Urine Squamous Epithelial Cells Few /LPF Urine Bacteria Few /HPF Urine Mucus Slight /LPF Current Medications Medications (Trade) Dose Ordered Sig/Enrike Route PRN Reason Start Time Stop Time Status Last Admin Dose Admin Sodium Chloride 1,000 ml @ 1,000 mls/hr Q1H IV 08/25/19 20:52 08/25/19 21:51 DC 08/25/19 21:12 Sodium Chloride (Normal Saline Flush) 10 ml QSHIFT PRN IV AFTER MEDS AND BLOOD DRAWS 08/25/19 21:00 Ondansetron HCl (Zofran) 4 mg 1X ONCE IVP 08/25/19 21:00 08/25/19 21:15 DC 08/25/19 21:13 Fentanyl Citrate (Fentanyl 2ml Vial) 50 mcg 1X ONCE IVP 08/25/19 21:00 08/25/19 21:15 DC 08/25/19 21:13 Fentanyl Citrate (Fentanyl 2ml Vial) 50 mcg 1X ONCE IVP 08/25/19 22:00 08/25/19 22:01 DC 08/25/19 21:53 Iohexol (Omnipaque 300 Mg/ml) 75 ml 1X ONCE IV 08/25/19 22:00 08/25/19 22:01 DC 08/25/19 22:03 Info (Do NOT chart on this entry -- for MONITORING) 1 each PRN DAILY PRN MC SEE COMMENTS 08/25/19 22:00 08/27/19 21:59 EKG: EKG: EKG read at 2100 showed sinus tachycardia rate 110, leftward axis, otherwise unremarkable EKG, not STEMI [] Radiology/Procedures: Radiology/Procedures: [place] [address] IMAGING REPORT Signed PATIENT: BETH LERNER ACCOUNT: [id number] : 1970 LOCATION: ER AGE: 48 SEX: F EXAM STATUS: REG ER ORD. PHYSICIAN: CECIL LYNNE DO REASON: LLQ abd pain, hx colitis, appendectomy, cholecystectomy, hysterec PROCEDURE: CT ABD PELV W/ IV CONTRST ONLY Exam: CT of abdomen and pelvis with contrast INDICATION: Left lower quadrant abdominal pain TECHNIQUE: Sequential axial images through the abdomen and pelvis obtained following the administration of 75 mL of Omni 300 IV contrast. Sagittal and coronal reformatted images were reconstructed from the axial data and reviewed. Comparisons: 08/09/2019 FINDINGS: Heart size is normal. No pericardial effusion. 5 mm nodule in the left lower lobe. No pleural effusion. Mild diffuse hepatic steatosis. Spleen, pancreas and adrenals are unremarkable. Gallbladder surgically absent. Kidneys demonstrate symmetric enhancement. No perinephric inflammation or hydronephrosis. No renal or ureteral calculi are identified. Bladder is decompressed not well evaluated. Uterus is absent. No abnormal adnexal mass. Few scattered diverticula noted predominantly in the descending colon without evidence of acute diverticulitis. Remainder of the large and small bowel are unremarkable. Appendix is not identified. No free intra-abdominal air or fluid. No obstruction. Abdominal aorta has a normal course and caliber. No enlarged abdominal lymph nodes are identified. Subacute healing fracture involving the posterior right acetabulum. No acute fractures are identified. IMPRESSION: 1. Diverticulosis without evidence of acute diverticulitis. 2. No acute process identified within the abdomen or pelvis. 3. A 5 mm nodule in the left lower lobe. In a low-risk patient no further follow-up imaging is recommended. In a high-risk patient and optional one-year follow-up CT can BE performed. Exposure: One or more of the following in the visualized dose reduction techniques were utilized for this examination: 1. Automated exposure control 2. Adjustment of the MA and/or KV according to patient size 3. Use of iterative of reconstructive technique Electronically signed by: Anna Griffin MD (08/25/2019 10:25 PM) [id number] DICTATED AND SIGNED BY: ANNA GRIFFIN MD DATE: 08/25/192224 CC: PCP,UNKNOWN; CECIL LYNNE DO ~ [] Course & Med Decision Making: Course & Med Decision Making Pertinent Labs and Imaging studies reviewed. (See chart for details) [] Dragon Disclaimer: Dragon Disclaimer: This electronic medical record was generated, in whole or in part, using a voice recognition dictation system. 2223 stable, patient reassessed multiple times. She had some slight increase in pain so dose of morphine was ordered. Differential diagnosis included diverticulosis, colitis, surgical abdomen, anemia, electrolyte disturbance etc. Patient's CT scan abdomen pelvis was stable and no acute findings as far as abdominal pain. Patient has diverticulosis without acute diverticulitis. Patient has a normal white blood cell count and her hemoglobin is stable. Urinalysis is clear. As far as ongoing chronic pain patient has hydrocodone. We discussed options and patient will call her police officer booking first thing tomorrow morning. Patient will return if her symptoms worsen or persist. Patient is already on acid blocking medication. No emergency admission criteria met tonight Departure Departure: Impression: Primary Impression: Abdominal pain, left lower quadrant Additional Impressions: History of chronic ulcerative colitis Blood in stool Nausea & vomiting Disposition: HOME/RESIDENCE PRIOR TO ADM Condition: STABLE Referrals: PCP,UNKNOWN (PCP) VADIM GARCIA MD Patient Instructions: Abdominal Pain, Nausea and Vomiting, Ulcerative Colitis Additional Instructions: Drink plenty fluids, rest, call and see your police officer booking right away in follow-up. Your blood work was stable, your urinalysis was normal and your CT scan abdomen/pelvis was stable. Scripts Metoclopramide Hcl (REGLAN) 10 Mg Tablet 1 TAB PO TID for nausea for 10 Days, #20 TAB 0 Refills before food and bedtime Prov: CECIL LYNNE DO 08/25/19 Justification of Admission: Justification of Admission: Justification of Admission Dx: N/A CECIL LYNNE DO Aug 25, 2019 21:03
[2019-08-25 21:29] LABS: CALCIUM 8.2 mg/dL (8.5-10.1); CREATININE 0.8 mg/dL (0.6-1.0); GFR 75.9; POTASSIUM 3.2 mmol/L (3.5-5.1)
[2019-08-25 21:30] LABS: BASO % 0 % (0-3); EOS % 1 % (0-3); HEMATOCRIT 30.8 % (36.0-47.0); HEMOGLOBIN 9.9 g/dL (12.0-15.5); LYMPH # 0.6 x10^3/uL (1.0-4.8); LYMPH % 13 % (24-48); MEAN CORPUSCULAR HEMOGLOBIN 26 pg (25-35); MEAN CORPUSCULAR HGB CONC 32 g/dL (31-37); MEAN CORPUSCULAR VOLUME 80 fL (79-100); MONO # 0.4 x10^3/uL (0.0-1.1); MONO % 9 % (0-9); NEUT # 3.4 x10^3uL (1.8-7.7); NEUT % 77 % (31-73); PLATELET COUNT 277 x10^3/uL (140-400); RED BLOOD COUNT 3.86 x10^6/uL (3.50-5.40); RED CELL DISTRIBUTION WIDTH 15.6 % (11.5-14.5); WHITE BLOOD COUNT 4.4 x10^3/uL (4.0-11.0)
[2019-08-25 21:34] LABS: ALBUMIN 3.3 g/dL (3.4-5.0); TOTAL BILIRUBIN 0.2 mg/dL (0.2-1.0); TOTAL PROTEIN 6.6 g/dL (6.4-8.2)
[2019-08-25] MEDS ORDERED: IOHEXOL 300 MG/ML 75 ML VIAL. IV ONE (22:00)
[2019-08-25] MEDS ORDERED: CONTRAST GIVEN MC PRN (22:00)
[2019-08-25 22:08] LABS: CLARITY,URINE CLEAR; COLOR,URINE YELLOW; GLUCOSE,URINE 100 mg/dL (NEG)
[2019-08-25 22:09] LABS: BILIRUBIN,URINE NEG (NEG); NITRITE,URINE NEG (NEG); UROBILINOGEN,URINE 0.2 mg/dL (0.2 mg/dL)
[2019-08-25 22:17] LABS: BACTERIA,URINE FEW /HPF (0-FEW); SQUAMOUS EPITHELIAL CELL,UR FEW /LPF; WBC,URINE 0 /HPF (0-4)
--- NOTE | 2019-08-25 22:28 | RAD ---
Exam: CT of abdomen and pelvis with contrast INDICATION: Left lower quadrant abdominal pain TECHNIQUE: Sequential axial images through the abdomen and pelvis obtained following the administration of 75 mL of Omni 300 IV contrast. Sagittal and coronal reformatted images were reconstructed from the axial data and reviewed. Comparisons: 08/09/2019 FINDINGS: Heart size is normal. No pericardial effusion. 5 mm nodule in the left lower lobe. No pleural effusion. Mild diffuse hepatic steatosis. Spleen, pancreas and adrenals are unremarkable. Gallbladder surgically absent. Kidneys demonstrate symmetric enhancement. No perinephric inflammation or hydronephrosis. No renal or ureteral calculi are identified. Bladder is decompressed not well evaluated. Uterus is absent. No abnormal adnexal mass. Few scattered diverticula noted predominantly in the descending colon without evidence of acute diverticulitis. Remainder of the large and small bowel are unremarkable. Appendix is not identified. No free intra-abdominal air or fluid. No obstruction. Abdominal aorta has a normal course and caliber. No enlarged abdominal lymph nodes are identified. Subacute healing fracture involving the posterior right acetabulum. No acute fractures are identified. IMPRESSION: 1. Diverticulosis without evidence of acute diverticulitis. 2. No acute process identified within the abdomen or pelvis. 3. A 5 mm nodule in the left lower lobe. In a low-risk patient no further follow-up imaging is recommended. In a high-risk patient and optional one-year follow-up CT can BE performed. Exposure: One or more of the following in the visualized dose reduction techniques were utilized for this examination: 1. Automated exposure control 2. Adjustment of the MA and/or KV according to patient size 3. Use of iterative of reconstructive technique Electronically signed by: Anna Liu MD (08/25/2019 10:25 PM) [id number]
[2019-08-25] MEDS ORDERED: MORPHINE SULFATE 4 MG/ML DISP.SYRIN. IV ONE (23:15)
[2019-08-25] MEDS ORDERED: METO10TA81 PO (23:29)
--- NOTE | 2019-08-27 08:26 | EKG ---
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
== END 2019-08-25 23:40 | disposition home or self-care (01) ==
LOC: ER 20:36
DX: R10.32 Left lower quadrant pain (principal); R11.2 Nausea with vomiting, unspecified; K92.1 Melena; K51.90 Ulcerative colitis, unspecified, without complications; K21.9 Gastro-esophageal reflux disease without esophagitis; E78.00 Pure hypercholesterolemia, unspecified; Z87.442 Personal history of urinary calculi; Z86.2 Personal history of diseases of the blood and blood-forming organs and certain disorders involving the immune mechanism; Z90.89 Acquired absence of other organs; Z90.49 Acquired absence of other specified parts of digestive tract; Z90.710 Acquired absence of both cervix and uterus; Z87.891 Personal history of nicotine dependence; Z88.1 Allergy status to other antibiotic agents; Z88.8 Allergy status to other drugs, medicaments and biological substances
CPT/HCPCS: 36415; 74177; 80053; 81001; 83690; 84484; 85025; 93005; 96361; 96374; 96375; 96376; 99285; J2270; J2405; J3010; Q9967; J7030

== ENCOUNTER 2019-09-10 17:37 | Emergency (ER) | payer OTHER ==
[~2019-09-10] VITALS: Ht 162.6 cm; Wt 112.4 kg
[~2019-09-10 17:37] MED LIST changes: +METO10TA81 PO
[2019-09-10] MEDS ORDERED: IV NORMAL SALINE 1,000ML 1,000 ML IV ONE (18:15)
[2019-09-10] MEDS ORDERED: ONDANSETRON PF 4 MG/2 ML VIAL. IVP ONE (18:30)
[2019-09-10] MEDS ORDERED: FAMOTIDINE 20 MG/2 ML VIAL IVP ONE (18:30)
[2019-09-10 18:58] LABS: BASO # 0.1 x10^3/uL (0.0-0.2); BASO % 2 % (0-3); EOS # 0.1 x10^3/uL (0.0-0.7); EOS % 1 % (0-3); HEMATOCRIT 29.9 % (36.0-47.0); HEMOGLOBIN 9.7 g/dL (12.0-15.5); LYMPH # 0.7 x10^3/uL (1.0-4.8); LYMPH % 13 % (24-48); MEAN CORPUSCULAR HEMOGLOBIN 25 pg (25-35); MEAN CORPUSCULAR HGB CONC 32 g/dL (31-37); MEAN CORPUSCULAR VOLUME 78 fL (79-100); MONO # 0.5 x10^3/uL (0.0-1.1); MONO % 9 % (0-9); NEUT % 75 % (31-73); PLATELET COUNT 236 x10^3/uL (140-400); RED BLOOD COUNT 3.84 x10^6/uL (3.50-5.40); RED CELL DISTRIBUTION WIDTH 16.2 % (11.5-14.5); WHITE BLOOD COUNT 5.3 x10^3/uL (4.0-11.0)
[2019-09-10 19:13] LABS: ALBUMIN 3.3 g/dL (3.4-5.0); CALCIUM 8.7 mg/dL (8.5-10.1); CREATININE 0.7 mg/dL (0.6-1.0); GFR 88.6; TOTAL BILIRUBIN 0.2 mg/dL (0.2-1.0); TOTAL PROTEIN 6.5 g/dL (6.4-8.2)
[2019-09-10 19:15] LABS: POTASSIUM 2.9 mmol/L (3.5-5.1)
[2019-09-10 20:13] LABS: BARBITURATES NEG (NEG); BENZODIAZEPINES POS (NEG); CANNABINOIDS POS (NEG); COCAINE NEG (NEG); METHADONE NEG (NEG); OPIATES NEG (NEG); PHENCYCLIDINE NEG (NEG)
[2019-09-10 20:14] LABS: BACTERIA,URINE 0 /HPF (0-FEW); BILIRUBIN,URINE NEG (NEG); CLARITY,URINE CLEAR; COLOR,URINE YELLOW; GLUCOSE,URINE NEG (NEG); NITRITE,URINE NEG (NEG); RBC,URINE RARE /HPF (0-2); SQUAMOUS EPITHELIAL CELL,UR FEW /LPF; UROBILINOGEN,URINE 0.2 mg/dL (0.2 mg/dL); WBC,URINE OCC /HPF (0-4)
[2019-09-10 20:15] LABS: AMPHETAMINE/METHAMPHETAMINE NEG (NEG)
[2019-09-10 20:20] VITALS: BP 146/90
--- NOTE | 2019-09-10 20:21 | PHYS DOC ---
Past History Past Medical History: Anemia, Anxiety, Depression, GERD, High Cholesterol, Kidney Stones, Other Additional Past Medical Histor: ulcerative colitis Past Surgical History: Appendectomy, Cholecystectomy, Hysterectomy, Other Additional Past Surgical Histo: umbilical hernia repair Smoking: Non-smoker, Quit Greater Than 1 Year Alcohol Use: Occasionally Drug Use: None General Adult EDM: Chief Complaint: ABDOMINAL PAIN HPI: HPI: 48-year-old female with chronic abdominal pain presents with left lower quadrant abdominal pain that started tonight. Patient also complains of nausea/vomiting/diarrhea x3 days. Denies fever or chills. Denies trauma. Patient reports history of ulcerative colitis as well as diverticulosis. Denies history of diverticulitis. Patient does report she was seen recently in the ER here at [facility] on 08/25/2019. [facility] reviewed notes patient did undergo CT imaging at that time without significant findings. Patient reports she has a GI appointment for colonoscopy on 09/16/2019 at [place]. Review of Systems: Review of Systems: Constitutional: Denies fever or chills Eyes: Denies redness or eye pain HENT: Denies nasal congestion or sore throat Respiratory: Denies cough or shortness of breath Cardiovascular: Denies chest pain or palpitations GI: Reports abdominal pain, nausea, vomiting, and diarrhea : Denies dysuria or hematuria Musculoskeletal: Denies back pain or joint pain Integument: Denies rash or skin lesions Neurologic: Denies headache, focal weakness or sensory changes Complete systems were reviewed and found to be within normal limits, except as documented in this note. Current Medications: Current Meds: Current Medications Medications (Trade) Dose Ordered Sig/[facility] Start Time Stop Time Status Last Admin Dose Admin Famotidine (Pepcid Vial) 20 mg 1X ONCE 09/10/19 18:30 09/10/19 18:31 DC 09/10/19 18:50 20 MG Fentanyl Citrate (Fentanyl 2ml Vial) 50 mcg 1X ONCE 09/10/19 19:15 09/10/19 19:16 DC 09/10/19 19:06 50 MCG Ondansetron HCl (Zofran) 4 mg 1X ONCE 09/10/19 18:30 09/10/19 18:31 DC 09/10/19 18:50 4 MG Sodium Chloride 1,000 ml @ 1,000 mls/hr 1X ONCE 09/10/19 18:15 09/10/19 19:14 DC 09/10/19 18:50 1,000 MLS/HR Allergies: Allergies: Allergies Coded Allergies Type Severity Reaction Last Updated Verified cephalexin Allergy Intermediate "ears burn/rash on neck" 08/26/18 Yes ketorolac Allergy Intermediate Hives 08/09/19 Yes prochlorperazine Allergy Intermediate 08/09/19 Yes Physical Exam: PE: Constitutional: Well developed, well nourished, no acute distress, non-toxic appearance HENT: Normocephalic, atraumatic Eyes: Conjunctiva normal, no discharge Neck: Normal range of motion, no tenderness, supple Cardiovascular: Heart rate normal, regular rhythm Lungs & Thorax: No respiratory distress, equal chest rise and fall Abdomen: Soft, LLQ tenderness, no guarding/rebound tenderness/distention Skin: Warm, dry, no erythema, no rash Back: No tenderness, no CVA tenderness Extremities: No tenderness, ROM intact, no edema Neurologic: Alert and oriented X 3, no focal deficits noted Psychologic: Affect normal, judgment normal Current Patient Data: Labs: Laboratory Tests Test 09/10/19 18:40 09/10/19 19:15 White Blood Count 5.3 x10^3/uL (4.0-11.0) Red Blood Count 3.84 x10^6/uL (3.50-5.40) Hemoglobin 9.7 g/dL (12.0-15.5) L Hematocrit 29.9 % (36.0-47.0) L Mean Corpuscular Volume 78 fL (79-100) L Mean Corpuscular Hemoglobin 25 pg (25-35) Mean Corpuscular Hemoglobin Concent 32 g/dL (31-37) Red Cell Distribution Width 16.2 % (11.5-14.5) H Platelet Count 236 x10^3/uL (140-400) Neutrophils (%) (Auto) 75 % (31-73) H Lymphocytes (%) (Auto) 13 % (24-48) L Monocytes (%) (Auto) 9 % (0-9) Eosinophils (%) (Auto) 1 % (0-3) Basophils (%) (Auto) 2 % (0-3) Neutrophils # (Auto) 4.0 x10^3uL (1.8-7.7) Lymphocytes # (Auto) 0.7 x10^3/uL (1.0-4.8) L Monocytes # (Auto) 0.5 x10^3/uL (0.0-1.1) Eosinophils # (Auto) 0.1 x10^3/uL (0.0-0.7) Basophils # (Auto) 0.1 x10^3/uL (0.0-0.2) Sodium Level 140 mmol/L (136-145) Potassium Level 2.9 mmol/L (3.5-5.1) *L Chloride Level 105 mmol/L (98-107) Carbon Dioxide Level 28 mmol/L (21-32) Anion Gap 7 (6-14) Blood Urea Nitrogen 12 mg/dL (7-20) Creatinine 0.7 mg/dL (0.6-1.0) Estimated GFR (Cockcroft-Gault) 88.6 BUN/Creatinine Ratio 17 (6-20) Glucose Level 134 mg/dL (70-99) H Calcium Level 8.7 mg/dL (8.5-10.1) Total Bilirubin 0.2 mg/dL (0.2-1.0) Aspartate Amino Transferase (AST) 16 U/L (15-37) Alanine Aminotransferase (ALT) 28 U/L (14-59) Alkaline Phosphatase 95 U/L (46-116) Total Protein 6.5 g/dL (6.4-8.2) Albumin 3.3 g/dL (3.4-5.0) L Albumin/Globulin Ratio 1.0 (1.0-1.7) Lipase 154 U/L (73-393) Magnesium Level 1.8 mg/dL (1.8-2.4) Vital Signs: Vital Signs Date Time Temp Pulse Resp B/P (MAP) Pulse Ox O2 Delivery O2 Flow Rate FiO2 09/10/19 19:06 16 09/10/19 17:40 98.0 116 162/102 (122) 99 Room Air EKG: EKG: [] Radiology/Procedures: Radiology/Procedures: [] Course & Med Decision Making: Course & Med Decision Making Pertinent Labs and Imaging studies reviewed. (See chart for details) Patient presents with report of abdominal pain primarily to left lower quadrant. Patient does have chronic issues with abdominal pain. Reports history of ulcerative colitis as well as diverticulosis. Patient was seen recently for similar symptoms on 08/25/2019. [facility] reviewed notes patient with normal CT imaging on 08/25/2019. Labs obtained and posted to chart. Hypokalemia addressed. Pain/nausea addressed. IV fluid hydration given. UDS positive for THC and benzos. Patient prescribed benzos. Decision to hold repeat CT imaging given recent imaging on 08/25/2019. Pain appears more chronic in nature. Rx for Levsin SL and Zofran ODT provided. Patient stable for discharge with outpatient follow-up with PCP/GI. Discussed findings and plan with patient, who acknowledges understanding and agreement. Zacarias Disclaimer: Zacarias Disclaimer: This electronic medical record was generated, in whole or in part, using a voice recognition dictation system. Departure Departure: Impression: Primary Impression: Abdominal pain Qualified Codes: R10.32 - Left lower quadrant pain Additional Impression: Hypokalemia Disposition: HOME/RESIDENCE PRIOR TO ADM Condition: STABLE Referrals: PCP,UNKNOWN (PCP) Patient Instructions: Abdominal Pain (Nonspecific), Hypokalemia, Potassium Content of Foods Scripts Ondansetron (ONDANSETRON ODT) 4 Mg Tab.rapdis 1 TAB PO PRN Q6-8HRS PRN for NAUSEA, #16 TAB Prov: JUSTO STUART DO 09/10/19 Hyoscyamine Sulfate (LEVSIN-SL) 0.125 Mg Tab.subl 0.125 MG SL Q4-6HRS PRN for PAIN, #30 TAB Prov: JUSTO STUART DO 09/10/19 Justification of Admission: Justification of Admission: Justification of Admission Dx: N/A JUSTO STUART DO Sep 10, 2019 20:21
[2019-09-10] MEDS ORDERED: POTASSIUM CHLORIDE 20 MEQ TABLET.ER. PO ONE (20:30)
[2019-09-10] MEDS ORDERED: HYOS0.1265 SL (20:31)
[2019-09-10] MEDS ORDERED: ONDA4TAB12 PO (20:31)
== END 2019-09-10 20:35 | disposition home or self-care (01) ==
LOC: ER 17:37
DX: R10.32 Left lower quadrant pain (principal); R11.2 Nausea with vomiting, unspecified; R19.7 Diarrhea, unspecified; E87.6 Hypokalemia; F41.9 Anxiety disorder, unspecified; F32.9 Major depressive disorder, single episode, unspecified; E78.00 Pure hypercholesterolemia, unspecified; K21.9 Gastro-esophageal reflux disease without esophagitis; Z87.442 Personal history of urinary calculi; Z90.49 Acquired absence of other specified parts of digestive tract; Z90.710 Acquired absence of both cervix and uterus; Z98.890 Other specified postprocedural states; Z90.89 Acquired absence of other organs; Z88.6 Allergy status to analgesic agent; Z88.8 Allergy status to other drugs, medicaments and biological substances
CPT/HCPCS: 36415; 80053; 80307; 81001; 83605; 83690; 83735; 85025; 96361; 96374; 96375; 96376; 99285; J2405; J3010; J3490; J7030

== ENCOUNTER 2019-09-19 19:12 | Inpatient (IN) | payer OTHER ==
[~2019-09-19] VITALS: Ht 162.6 cm; Wt 112.3 kg
[~2019-09-19 19:12] MED LIST changes: +HYOS0.1265 SL
[2019-09-19] MEDS ORDERED: IV RINGERS SOLUTION,LACTATED 1,000 ML IV SCH (19:57)
[2019-09-19] MEDS ORDERED: methylPREDNISolone SOD SUCC PF 125 MG/2 ML VIAL. IV ONE (20:00)
[2019-09-19] MEDS ORDERED: ONDANSETRON PF 4 MG/2 ML VIAL. IVP ONE (20:00)
[2019-09-19] MEDS ORDERED: FAMOTIDINE 20 MG/2 ML VIAL IVP ONE (20:00)
--- NOTE | 2019-09-19 20:06 | PHYS DOC ---
Past History Past Medical History: Anemia, Anxiety, Depression, Fibromyalgia, GERD, High Cholesterol, Hypertension, Kidney Stones, Other Additional Past Medical Histor: ulcerative colitis, colon polyps Past Surgical History: Appendectomy, Cholecystectomy, Hysterectomy, Other Additional Past Surgical Histo: umbilical hernia repair Smoking: Cigarettes Alcohol Use: Occasionally Drug Use: None General Adult EDM: Chief Complaint: ABDOMINAL PAIN HPI: HPI: ".. I ve got bad ulcerative colitis.. I frequently have bad flares... This episode I started with constipation then it started having bad diarrhea I probably had about 14 stools and vomited about 6 times since about 5 PM... I been taking all my meds like I should... But I am hurting so bad..." Mrs. Ross is a 48-year-old female with complaints of generalized abdomen pain with some localization in left lower quadrant. Patient has history of ulc erative colitis and polyps. Patient has had frequent ED evaluations and admissions for her ulcerative colitis flares. Patient reports she has been compliant with all her ulcerative colitis meds including mesalamine and sulfasalazine. Patient has not been on steroids recently. Patient denies any intake of bad food. Last ate Jell-O at approximately 11 AM today. Patient is not on any TNF, and or receptor antagonist meds. Patient denies any travel. Patient denies any specific ill contacts animals or human. Patient denies any history immunosuppression. Patient denies any bad food intake. Patient has been in the ED for multiple visits similar problems, last series 09/09, 08/24, ,5,24 ect. Normally at least two visits per month. Patient follows with [facility] Dr. Campo, with last polypectomy with colonoscopy approximately 1 year ago. Patient follows with a primary Dr. Padmini castanon at [facility]. Follows with Dr. Bridges for chronic pain. The patient currently rating her pain 10 out of 10 primarily left lower quadrant. Patient has history of anxiety, constipation, depression, GERD, elevated cholesterol, tobacco use 1 pack/day, constipation, episodes of florid diarrhea, anemia, hematuria, hypertension, chronic abdomen pain, fibromyalgia, atypical chest pain and chronic musculoskeletal pain. Patient had abdomen surgeries consisting of cholecystectomy, hysterectomy, appendectomy, polypectomies, EGDs and colonoscopies on scheduled intervals. Review of Systems: Review of Systems: Constitutional: Denies fever or chills Eyes: Denies change in visual acuity HENT: Denies nasal congestion or sore throat Respiratory: Denies cough or shortness of breath Cardiovascular: Denies chest pain or edema GI: Complains of severe abdominal pain, nausea, vomiting, and diarrhea : Denies dysuria Musculoskeletal: Denies back pain or joint pain Integument: Denies rash Neurologic: Denies headache, focal weakness or sensory changes Endocrine: Denies polyuria or polydipsia Lymphatic: Denies swollen glands Psychiatric: Denies depression or anxiety Heart Score: HEART Score for Chest Pain: HEART Score for Chest Pain Response (Comments) Value History Slighlty/Non-Suspicious 0 ECG Nonspecific Repolarizatio 1 Age >45 - < 65 1 Risk Factors 1 or 2 Risk Factors 1 Troponin < Normal Limit 0 Total 3 Risk Factors: Risk Factors: DM, Current or recent (<one month) smoker, HTN, HLP, family history of CAD, obesity. Risk Scores: Score 0 - 3: 2.5% MACE over next 6 weeks - Discharge Home Score 4 - 6: 20.3% MACE over next 6 weeks - Admit for Clinical Observation Score 7 - 10: 72.7% MACE over next 6 weeks - Early Invasive Strategies Family History: Family History: Grandmother had ulcerative colitis Current Medications: Current Meds: See nursing for home meds Allergies: Allergies: Allergies Coded Allergies Type Severity Reaction Last Updated Verified cephalexin Allergy Intermediate "ears burn/rash on neck" 08/26/18 Yes ketorolac Allergy Intermediate Hives 08/09/19 Yes prochlorperazine Allergy Intermediate 08/09/19 Yes Physical Exam: PE: Constitutional: Patient reports acute distress, non-toxic appearance. [] HENT: Normocephalic, atraumatic, bilateral external ears normal, oropharynx moist, no oral exudates, nose normal. [] Eyes: PERRLA, EOMI, conjunctiva normal, no discharge. [] Neck: Normal range of motion, no tenderness, supple, no stridor. More than 17 inches circumference Cardiovascular: Tachycardia heart rate regular rhythm, no murmur [] PMI to the left Lungs & Thorax: Bilateral breath sounds equal apex with scattered wheezes on auscultation [] Abdomen: Bowel sounds hyperactive l, soft, generalized tenderness, no masses, no pulsatile masses. [] Some rebound to left lower quadrant. Large ventral hernia. Old surgery scars. Obese Skin: Warm, dry, no erythema, no rash. [] Back: No tenderness, no CVA tenderness. [] Extremities: No tenderness, no cyanosis, no clubbing, ROM intact, ankle edema. [] Psoas on left Neurologic: Alert and oriented X 3, moves extremities on request, has distal sensory, no focal deficits noted. [] Psychologic: Affect anxious, depressed, judgement normal, Current Patient Data: Vital Signs: Vital Signs Date Time Temp Pulse Resp B/P (MAP) Pulse Ox O2 Delivery O2 Flow Rate FiO2 09/19/19 19:51 99.2 109 18 151/121 (131) 100 Room Air EKG: EKG: My interpretation EKG shows a sinus tachycardia at 100 bpm leftward axis. Does have some nonspecific contour abnormalities in inferior leads but no findings of acute STEMI with contralateral changes .[] Radiology/Procedures: Radiology/Procedures: [address] [address] IMAGING REPORT Signed PATIENT: BETH LERNER ACCOUNT: [id number] : 1970 LOCATION: ER AGE: 48 SEX: F EXAM STATUS: REG ER ORD. PHYSICIAN: MENDEZ VALDOVINOS MD REASON: Left lower abdomen pain, nausea, vomiting. Hx colitis PROCEDURE: CHEST PA & LATERAL Exam: Chest 2 views. Abdomen 2 views INDICATION: Left lower abdominal pain, nausea and vomiting TECHNIQUE: Frontal and lateral views the chest. Supine and upright views of the abdomen Comparisons: None FINDINGS: The cardiomediastinal silhouette and pulmonary vessels are within normal limits. The lung and pleural spaces are clear. Air and stool are noted throughout the colon to level the rectum in a nonobstructive bowel gas pattern. No suspicious masses or calcifications. No free air. Visualized osseous structures are unremarkable. IMPRESSION: 1. No acute cardiopulmonary process. 2. Nonobstructive bowel gas pattern. Electronically signed by: Anna Griffin MD (09/19/2019 9:45 PM) [id number] DICTATED AND SIGNED BY: ANNA GRIFFIN MD DATE: 09/19/19 9692 CC: MENDEZ VALDOVINOS MD; PCP,NO ~ [address] [address] IMAGING REPORT Signed PATIENT: BETH LERNER ACCOUNT: [id number] : 1970 LOCATION: ER AGE: 48 SEX: F EXAM STATUS: REG ER ORD. PHYSICIAN: MENDEZ VALDOVINOS MD REASON: Left lower abdomen pain, nausea, vomiting. Hx colitis PROCEDURE: CT ABD PELV W/ORAL&IV CONTRAST Exam: CT abdomen and pelvis with contrast INDICATION: Left lower abdominal pain TECHNIQUE: Sequential axial images through the abdomen and pelvis obtained following the administration of 75 mL of Omni 300 IV contrast. Sagittal and coronal reformatted images were reconstructed from the axial data and reviewed. Comparisons: 08/25/2019 FINDINGS: Heart size is normal. No pericardial effusion. Stable slightly nodule in the left lower lobe. Visualized lung bases are clear. No pleural effusion. Diffuse hepatic steatosis. Spleen, pancreas, and adrenals are unremarkable. Gallbladder surgically absent. Kidneys demonstrate symmetric enhancement. No perinephric inflammation or hydronephrosis. No renal or ureteral calculi are identified. Bladder is distended and appears thin-walled. Uterus is absent. No abnormal adnexal mass. Mild asymmetric wall thickening noted at the rectum. Otherwise, Large and small bowel are unremarkable. Appendix is not identified. No free intra-abdominal air or fluid. No obstruction. Abdominal aorta has a normal course and caliber. Abdominal vasculature is patent. No enlarged abdominal lymph nodes are identified. No suspicious osseous lesions or acute fractures are identified. Subacute/chronic fracture at the right posterior acetabulum. IMPRESSION: 1. Mild asymmetric wall thickening noted at the rectum. Findings may represent a mild colitis. Colonoscopy posttreatment to ensure no underlying lesion is recommended. 2. Redemonstrated left lower lobe nodule measuring 5 mm. 3. Diffuse hepatic steatosis. Exposure: One or more of the following in the visualized dose reduction techniques were utilized for this examination: 1. Automated exposure control 2. Adjustment of the MA and/or KV according to patient size 3. Use of iterative of reconstructive technique Electronically signed by: Anna Griffin MD (09/19/2019 10:31 PM) [id number] [][address] [address] IMAGING REPORT Signed PATIENT: BETH LERNER ACCOUNT: [id number] : 1970 LOCATION: ER AGE: 48 SEX: F EXAM STATUS: REG ER ORD. PHYSICIAN: MENDEZ VALDOVINOS MD REASON: Left lower abdomen pain, nausea, vomiting. Hx colitis PROCEDURE: ABDOMEN SUPINE & UPRIGHT Exam: Chest 2 views. Abdomen 2 views INDICATION: Left lower abdominal pain, nausea and vomiting TECHNIQUE: Frontal and lateral views the chest. Supine and upright views of the abdomen Comparisons: None FINDINGS: The cardiomediastinal silhouette and pulmonary vessels are within normal limits. The lung and pleural spaces are clear. Air and stool are noted throughout the colon to level the rectum in a nonobstructive bowel gas pattern. No suspicious masses or calcifications. No free air. Visualized osseous structures are unremarkable. IMPRESSION: 1. No acute cardiopulmonary process. 2. Nonobstructive bowel gas pattern. Electronically signed by: Anna Griffin MD (09/19/2019 9:45 PM) [id number] DICTATED AND SIGNED BY: ANNA GRIFFIN MD DATE: 09/19/192144 CC: MENDEZ VALDOVINOS MD; PCP,NO ~ Course & Med Decision Making: Course & Med Decision Making Pertinent Labs and Imaging studies reviewed. (See chart for details) Discussed presentation, testing and tx. plan with Dr. Cano. Admit Observational status. Will give IV steroids and cover with Levaquin and Flagyl. Impression: 1. Abdomen Pain 2. Ulcerative colitis exacerbation 3. History of colon polyps 4. Has complaints of nausea and vomiting and diarrhea 5. Diabetes glucose 144 6. Elevated CRP 10.5 7. History of chronic pain 8. Anemia hemoglobin 9.1 9. Elevated creatinine 1.1 [] Dragon Disclaimer: Dragon Disclaimer: This electronic medical record was generated, in whole or in part, using a voice recognition dictation system. Departure Departure: Disposition: HOME/RESIDENCE PRIOR TO ADM Condition: STABLE Referrals: PCP,NO (PCP) Justification of Admission: Justification of Admission: Justification of Admission Dx: N/A MENDEZ VALDOVINOS MD Sep 19, 2019 20:06
--- NOTE | 2019-09-19 20:28 | EKG ---
[address] [address] Test Date: 2019-09-19 Test Time: 20:23:47 Pat Name: BETH LERNER Department: Room: Gender: F [employer] Developer: : 1970 Requested By: MENDEZ VALDOVINOS Order Number: [id number] Reading MD: Measurements Intervals [place] Rate: 100 P: 31 OK: 174 QRS: -20 QRSD: 96 T: 7 QT: 346 QTc: 449 Interpretive Statements SINUS RHYTHM LEFTWARD AXIS S1,S2,S3 PATTERN QRS(T) CONTOUR ABNORMALITY CONSIDER INFERIOR INFARCT POSSIBLY ABNORMAL ECG RI6.02 Compared to ECG 08/09/2019 21:36:36 Incomplete right bundle-branch block no longer present T-wave abnormality no longer present Myocardial infarct finding still present
[2019-09-19] MEDS ORDERED: CONTRAST GIVEN MC PRN (20:30)
[2019-09-19] MEDS ORDERED: IOHEXOL 300 MG/ML 75 ML VIAL. IV ONE (20:30)
[2019-09-19] MEDS ORDERED: IOHEXOL 240 MG/ML 50ML VIAL. PO ONE (20:30)
[2019-09-19 20:36] LABS: BILIRUBIN,URINE NEG (NEG); CLARITY,URINE CLEAR; COLOR,URINE YELLOW; GLUCOSE,URINE NEG (NEG)
[2019-09-19 20:37] LABS: BACTERIA,URINE 0 /HPF (0-FEW); BARBITURATES NEG (NEG); BENZODIAZEPINES POS (NEG); CANNABINOIDS POS (NEG); COCAINE NEG (NEG); METHADONE NEG (NEG); NITRITE,URINE NEG (NEG); OPIATES POS (NEG); PHENCYCLIDINE NEG (NEG); RBC,URINE 0 /HPF (0-2); SQUAMOUS EPITHELIAL CELL,UR OCC /LPF; UROBILINOGEN,URINE 0.2 mg/dL (0.2 mg/dL); WBC,URINE OCC /HPF (0-4)
[2019-09-19 20:40] LABS: AMPHETAMINE/METHAMPHETAMINE NEG (NEG)
[2019-09-19 20:42] LABS: BASO % 0 % (0-3); EOS # 0.1 x10^3/uL (0.0-0.7); EOS % 1 % (0-3); HEMATOCRIT 28.5 % (36.0-47.0); HEMOGLOBIN 9.1 g/dL (12.0-15.5); LYMPH # 0.5 x10^3/uL (1.0-4.8); LYMPH % 9 % (24-48); MEAN CORPUSCULAR HEMOGLOBIN 25 pg (25-35); MEAN CORPUSCULAR HGB CONC 32 g/dL (31-37); MEAN CORPUSCULAR VOLUME 77 fL (79-100); MONO # 0.5 x10^3/uL (0.0-1.1); MONO % 8 % (0-9); NEUT # 4.8 x10^3uL (1.8-7.7); NEUT % 82 % (31-73); PLATELET COUNT 248 x10^3/uL (140-400); RED BLOOD COUNT 3.68 x10^6/uL (3.50-5.40); RED CELL DISTRIBUTION WIDTH 15.9 % (11.5-14.5); WHITE BLOOD COUNT 5.8 x10^3/uL (4.0-11.0)
[2019-09-19 20:54] LABS: CALCIUM 8.8 mg/dL (8.5-10.1); CREATININE 1.1 mg/dL (0.6-1.0); GFR 52.6; POTASSIUM 3.4 mmol/L (3.5-5.1)
[2019-09-19] MEDS ORDERED: IV RINGERS SOLUTION,LACTATED 1,000 ML IV ONE ×2 (21:00→23:30)
[2019-09-19 21:08] LABS: ALBUMIN 3.3 g/dL (3.4-5.0); C REACTIVE PROTEIN 10.5 mg/L (0-3.3); DIRECT BILIRUBIN 0.1 mg/dL (0.0-0.2); TOTAL BILIRUBIN 0.2 mg/dL (0.2-1.0); TOTAL PROTEIN 6.2 g/dL (6.4-8.2)
[2019-09-19] MEDS ORDERED: MORPHINE SULFATE 10 MG/ML SYRINGE. SQ ONE (21:15)
--- NOTE | 2019-09-19 21:48 | RAD ---
Exam: Chest 2 views. Abdomen 2 views INDICATION: Left lower abdominal pain, nausea and vomiting TECHNIQUE: Frontal and lateral views the chest. Supine and upright views of the abdomen Comparisons: None FINDINGS: The cardiomediastinal silhouette and pulmonary vessels are within normal limits. The lung and pleural spaces are clear. Air and stool are noted throughout the colon to level the rectum in a nonobstructive bowel gas pattern. No suspicious masses or calcifications. No free air. Visualized osseous structures are unremarkable. IMPRESSION: 1. No acute cardiopulmonary process. 2. Nonobstructive bowel gas pattern. Electronically signed by: Anna Liu MD (09/19/2019 9:45 PM) [id number]
--- NOTE | 2019-09-19 22:33 | RAD ---
Exam: CT abdomen and pelvis with contrast INDICATION: Left lower abdominal pain TECHNIQUE: Sequential axial images through the abdomen and pelvis obtained following the administration of 75 mL of Omni 300 IV contrast. Sagittal and coronal reformatted images were reconstructed from the axial data and reviewed. Comparisons: 08/25/2019 FINDINGS: Heart size is normal. No pericardial effusion. Stable slightly nodule in the left lower lobe. Visualized lung bases are clear. No pleural effusion. Diffuse hepatic steatosis. Spleen, pancreas, and adrenals are unremarkable. Gallbladder surgically absent. Kidneys demonstrate symmetric enhancement. No perinephric inflammation or hydronephrosis. No renal or ureteral calculi are identified. Bladder is distended and appears thin-walled. Uterus is absent. No abnormal adnexal mass. Mild asymmetric wall thickening noted at the rectum. Otherwise, Large and small bowel are unremarkable. Appendix is not identified. No free intra-abdominal air or fluid. No obstruction. Abdominal aorta has a normal course and caliber. Abdominal vasculature is patent. No enlarged abdominal lymph nodes are identified. No suspicious osseous lesions or acute fractures are identified. Subacute/chronic fracture at the right posterior acetabulum. IMPRESSION: 1. Mild asymmetric wall thickening noted at the rectum. Findings may represent a mild colitis. Colonoscopy posttreatment to ensure no underlying lesion is recommended. 2. Redemonstrated left lower lobe nodule measuring 5 mm. 3. Diffuse hepatic steatosis. Exposure: One or more of the following in the visualized dose reduction techniques were utilized for this examination: 1. Automated exposure control 2. Adjustment of the MA and/or KV according to patient size 3. Use of iterative of reconstructive technique Electronically signed by: Anna Liu MD (09/19/2019 10:31 PM) [id number]
[2019-09-19] MEDS ORDERED: ONDANSETRON PF 4 MG/2 ML VIAL. IVP PRN (23:15)
[2019-09-19] MEDS ORDERED: ACETAMINOPHEN 325 MG TABLET PO PRN (23:15)
[2019-09-20] MEDS ORDERED: cloNIDine HCL 0.1 MG TABLET PO ONE
[2019-09-20] MEDS ORDERED: MORPHINE SULFATE 10 MG/ML SYRINGE. SQ ONE
[2019-09-20] MEDS ORDERED: cloNIDine TTS-2 1 PATCH PATCH TD ONE
[2019-09-20 01:47] VITALS: BP 179/115
[2019-09-20] MEDS ORDERED: IPRATRPIUM/ALBUTEROL 0.5/2.5MG 3 ML NEBU. ONE (04:54)
[2019-09-20 06:05] VITALS: BP 149/104
[2019-09-20] MEDS ORDERED: IPRATRPIUM/ALBUTEROL 0.5/2.5MG 3 ML NEBU. NEB SCH (08:00)
[2019-09-20 08:08] LABS: CALCIUM 9.1 mg/dL (8.5-10.1); CREATININE 0.9 mg/dL (0.6-1.0); GFR 66.3; POTASSIUM 4.1 mmol/L (3.5-5.1)
[2019-09-20 08:09] LABS: BASO % 0 % (0-3); EOS % 0 % (0-3); HEMATOCRIT 28.1 % (36.0-47.0); HEMOGLOBIN 8.8 g/dL (12.0-15.5); LYMPH # 0.2 x10^3/uL (1.0-4.8); LYMPH % 4 % (24-48); MEAN CORPUSCULAR HEMOGLOBIN 24 pg (25-35); MEAN CORPUSCULAR HGB CONC 31 g/dL (31-37); MEAN CORPUSCULAR VOLUME 78 fL (79-100); MONO # 0.1 x10^3/uL (0.0-1.1); MONO % 1 % (0-9); NEUT # 6.1 x10^3uL (1.8-7.7); NEUT % 95 % (31-73); PLATELET COUNT 245 x10^3/uL (140-400); RED BLOOD COUNT 3.62 x10^6/uL (3.50-5.40); WHITE BLOOD COUNT 6.4 x10^3/uL (4.0-11.0)
[2019-09-20] MEDS ORDERED: methylPREDNISolone SOD SUCC PF 40 MG/ML VIAL. IV SCH (09:00)
[2019-09-20] MEDS: metroNIDAZOLE 500 MG TABLET PO SCH ×3 (09:01→20:43)
[2019-09-20 11:01] VITALS: BP 146/96
[2019-09-20 15:05] VITALS: BP 164/98
[2019-09-20] MEDS ORDERED: DICYCLOMINE HCL 20 MG TABLET PO PRN (16:15)
[2019-09-20] MEDS: HYDROmorphone PF 2 MG/ML VIAL IV PRN ×2 (16:26→20:44)
[2019-09-20] MEDS ORDERED: ONDANSETRON ODT 4 MG TAB.RAPDIS PO PRN (16:30)
[2019-09-20] MEDS ORDERED: PANTOPRAZOLE 40 MG TABLET. PO SCH (16:30)
[2019-09-20] MEDS ORDERED: ALPRAZolam 0.5 MG TABLET PO PRN (16:30)
--- NOTE | 2019-09-20 17:02 | HP ---
ADMIT DATE: 09/19/2019 HISTORY OF PRESENT ILLNESS: The patient is a 48-year-old female patient who came to the Emergency Room complaining of abdominal pain, mostly in the left lower quadrant. She stated that she has frequent episodes of flare-ups. She developed multiple episodes of nausea and vomiting. She has vomited about 7 times, started around 5:00 on Saturday morning. Throughout the day, she has about 18-20 loose bowel movements with fresh blood. She denied any chills, rigors, or fever. Denied any dizziness or lightheadedness. She came to the Emergency Room around 7:00 p.m. yesterday. Her pain is mostly localized to her left lower quadrant. She was diagnosed with ulcerative colitis. She normally follows with a environmental scientists that he works at [facility]; however, she was here helping her sister. She is on hydrocodone, but does not work when she started having nausea and vomiting. She has not been on any steroids recently. She denied intake of any bad food. Denied any recent travel or any specific ill contacts with the animals or humans. She apparently has been to our Emergency Room multiple times including 08/09/2019, 08/10/2019, 08/25/2019, and 09/10/2019. Generally, she comes to the Emergency Room about twice a month. She has had last polypectomy and colonoscopy approximately a year ago and her primary care physician is Dr. Mullen at [facility] and follows with Dr. Armstrong for chronic pain. When she arrived, her pain was rated about 10/10 in severity. She was investigated in the Emergency Room. Her lab work showed that she has microcytic hypochromic anemia. Her prothrombin time, INR and aPTT were normal. Her chemistry showed mild hypokalemia and mild dehydration. Her C-reactive protein was slightly elevated at 10.5, however, total protein and albumin were normal as well as liver enzymes. Urinalysis was essentially unremarkable. Toxic screen was positive for benzodiazepine, cannabinoids and opiates. Her imaging studies showed that her chest x-ray to be unremarkable and showed no acute cardiopulmonary process. CT scan of the abdomen and pelvis showed that the patient has mild asymmetric wall thickening noted at the rectum. Findings may represent a mild colitis. Colonoscopy post-treatment to ensure no underlying lesion is recommended. Redemonstrated left lower lobe nodules. She also has diffuse hepatic steatosis. The patient was admitted with flare up of ulcerative colitis. She has obviously a superimposed acute gastroenteritis is possible also, so she was started with IV antibiotic in the form of levofloxacin as well as Flagyl together with pain medication and methylprednisolone. She did receive a liter of lactated Ringer's and in the Emergency Room, she received a higher dose of methylprednisolone at 125 mg. JESSICA DORAN MD DR: JASON/leon JOB#: [id number] / [id number]
[2019-09-20 19:38] VITALS: BP 165/91
[2019-09-20] MEDS ORDERED: MESALAMINE 400 MG CAP.DRTAB. PO ONE (21:00)
[2019-09-20] MEDS ORDERED: SIMVASTATIN 40 MG TABLET. PO SCH (21:00)
[2019-09-20] MEDS ORDERED: levoFLOXacin 500 MG TABLET PO SCH (21:00)
[2019-09-20] MEDS ORDERED: LACTOBACILLUS RHAMNOSUS GG 1 CAPSULE. PO SCH (21:00)
[2019-09-20 22:59] VITALS: BP 147/67
[2019-09-21] MEDS: HYDROmorphone PF 2 MG/ML VIAL IV PRN ×2 (00:45→05:07)
--- NOTE | 2019-09-21 02:58 | PN ---
DATE: 09/20/2019 SUBJECTIVE: The patient is resting slightly propped up in bed, no apparent distress. She has had no further episodes of nausea, vomiting, has had no diarrhea today; however, she is complaining of severe pain in her left lower quadrant that normally does not respond, according to her, to fentanyl or morphine and her preferred drug is hydromorphone. PHYSICAL EXAMINATION: GENERAL: When I examined her this afternoon, she looked well and was clearly in no apparent respiratory distress. No pallor, jaundice, cyanosis or thyromegaly. No jugular venous distention. No limb edema. VITAL SIGNS: Her heart rate was 89, blood pressure was 164/88, temperature was 99.1, respiratory rate was 18 and oxygen saturation was 98%. HEAD, EYES, EARS, NOSE AND THROAT: Showed normocephalic, atraumatic. NECK: Supple. CARDIAC: Normal first and second heart sounds. No gallop or murmur. CHEST: Clear to auscultation. No crepitation or rhonchi. ABDOMEN: Distended, soft, nontender with tenderness mostly in the left lower quadrant. There is no guarding or rigidity. No organomegaly. All hernial orifice intact. Bowel sounds normal. NEUROLOGIC: She was grossly intact. Her intake and output were incompletely recorded. LABORATORY DATA: Her lab work this morning showed that her white cell count was 6400, hemoglobin 8.8, hematocrit 28, MCV 78 and platelet count of 245,000 with normal manual differential. Her chemistry showed a serum sodium 140, potassium 4.1, chloride 103, bicarbonate 28, anion gap of 9, BUN 8, creatinine 0.8, estimated GFR was 66 mL per minute. Her glucose was 124. Lactic acid was 1.8 and calcium was 9.1. ASSESSMENT: Flareup of ulcerative colitis versus acute infectious colitis, history of colon polyps, type 2 diabetes mellitus, hypochromic microcytic anemia and slightly elevated creatinine that has improved. The patient's nausea and vomiting have subsided. She has had no further diarrhea. PLAN: My plan is to continue with all her current medications, including her Lactobacillus rhamnosus 1 capsule twice a day. Continue with levofloxacin 500 mg once a day, Solu-Medrol 40 mg IV once a day, Flagyl 500 mg 3 times a day and we will start her on hydromorphone 2 mg every 4 hours. Continue all other home medication. 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 Meanwhile, we will start her on clear liquid diet and advance as tolerated. JESSICA DORAN MD DR: JASON/leon JOB#: [id number] / [id number]
[2019-09-21 05:28] VITALS: BP 137/86
[2019-09-21] MEDS ORDERED: DULoxetine HCL 60 MG CAPSULE.DR PO SCH (09:00)
--- NOTE | 2019-09-21 11:09 | HP ---
ADMIT DATE: 09/20/2019 ADDENDUM PAST MEDICAL HISTORY: Significant for hyperlipidemia, iron deficiency anemia, gastroesophageal reflux disease and anxiety. PAST SURGICAL HISTORY: Significant for bilateral cataract extraction, cholecystectomy, appendectomy, umbilical hernia repair, total abdominal hysterectomy and rectal polypectomy. She has also esophagogastroduodenoscopy x 3 and anterior cruciate ligament repair of the right knee. ALLERGIES: SHE IS ALLERGIC TO CEPHALEXIN, KETOROLAC AND PROCHLORPERAZINE. MEDICATIONS: She is currently on following medications: She is on dicyclomine 20 mg 4 times a day as needed, simvastatin 40 mg at bedtime, duloxetine 120 mg once a day. She is on alprazolam 2 mg daily, ondansetron (Zofran) 8 mg 4 times a day, lansoprazole 30 mg twice a day and mesalamine (Canasa) 1000 mg rectally suppository at bedtime. FAMILY HISTORY: She has one brother, younger, and has gastroesophageal reflux disease. Father is alive at age of 80 and has diabetes mellitus, benign essential tremor, senile macular degeneration and congestive heart failure. Her mother at age of 74 because of complication of COPD. Her grandmother from maternal side has ulcerative colitis. SOCIAL HISTORY: She is . She has a 26-year-old son and 18 years old daughter. She quit smoking in May 2017. She does not drink alcohol or use recreational drugs. She works for a [employer]. REVIEW OF SYSTEMS: She has bilateral cataract extraction, but denied any glaucoma or macular degeneration. Denied any earache, tinnitus or sensorineural deafness. Denied any nosebleeds, stuffy nose or postnasal drip. Denied any sore throat, sore tongue, toothache, hoarseness of voice or difficulty swallowing. Did have multiple episodes of nausea, vomiting, but denied any hematemesis, melena, hematochezia, diarrhea with fresh blood per rectum. Denied any dysuria, frequency or hematuria. Denied any chest pain, shortness of breath, orthopnea, paroxysmal nocturnal dyspnea. Denied any cough, phlegm or hemoptysis. Denied any dizziness, lightheadedness, or vertigo. PHYSICAL EXAMINATION: GENERAL: On arrival to the Emergency Room, she was somewhat pale. No jaundice, cyanosis or thyromegaly. No jugular venous distention. No limb edema. VITAL SIGNS: Her heart rate was 109, blood pressure was 151/121, temperature was 99.2, respiratory rate was 18, and oxygen saturation was 100% on room air. HEAD, EYES, EARS, NOSE AND THROAT: Showed normocephalic, atraumatic. NECK: Supple. HEART: Showed normal first and second heart sounds. No gallop, rub or murmur. CHEST: Showed central trachea, equal bilateral expansion, air entry, vesicular breath sounds. No crepitation or rhonchi. ABDOMEN: Distended, soft. There is tenderness mostly in the left lower quadrant. There is no guarding or rigidity. No organomegaly. All hernial orifices intact. Bowel sounds normal. NEUROLOGIC: She is awake, alert, responding appropriately. All cranial nerves intact. EXTREMITIES: She moves extremities without difficulty. She ambulates without assistance or assistive devices. LABORATORY DATA: Her lab work on admission showed that her white cell count was 5800, hemoglobin 9.1, hematocrit was 28.5, MCV 77 and platelet count 248,000 with normal manual differential. Her prothrombin time, INR and aPTT normal. Her chemistry showed a serum sodium 142, potassium 3.4, chloride 104, bicarbonate 28, anion gap of 10, BUN 10, creatinine 1.1, estimated GFR was 52 mL per minute. Her glucose 144, calcium was 8.8. Total bilirubin, AST, ALT, alkaline phosphatase were normal. CK was 19 and C-reactive protein was 10.5. Total protein was 6.2, albumin was 3.3 and serum lipase was 148. Urinalysis showed the urine was yellow, clear with a pH of 7.5, specific gravity 1.020. The urine was negative for protein, glucose, ketones, blood, nitrite and leukocyte esterase. There are no rbc's, occasional wbc's, and no bacteria. Her toxicology screen was positive for opiates, benzodiazepine, and cannabinoids. Her chest x-ray showed no acute cardiopulmonary process and nonobstructive bowel gas pattern. However, CT scan of the abdomen and pelvis showed that the heart size is normal, no pericardial effusion, stable, slight nodule in the left lower lobe visualized. Lung bases are clear, no pleural effusion. The patient has diffuse hepatic steatosis. Spleen, pancreas and adrenals are unremarkable. Gallbladder surgically absent. Kidneys demonstrate symmetric enhancement. No perinephric inflammation or hydronephrosis, no renal or ureteral calculi identified. Bladder is distended and appears thin walled. Uterus is absent. No abnormal adnexal masses. Mild asymmetric wall thickening noted at the rectum. Otherwise, large and small bowel are unremarkable. Appendix is not identified. No free intra-abdominal air or fluid, no obstruction. Abdominal aorta has a normal course and caliber. Abdominal vasculature is patent. No enlarged abdominal lymph nodes are identified. No suspicious osseous lesion or acute fracture identified. Subacute or chronic fracture at the right posterior cerebellar with the impression that the patient has mild asymmetric wall thickening noted in the rectum. Findings may represent mild colitis. Colonoscopy post-treatment to ensure no underlying lesion is recommended. Redemonstrated left lower lobe nodule measuring 5 mm, diffuse hepatic steatosis. The patient was treated with IV morphine. She received also steroids in the form of Solu-Medrol 125 mg and levofloxacin 500 mg, Flagyl 500 mg, was admitted to continue with pain management. Continue with steroids, Flagyl and levofloxacin. JESSICA DORAN MD DR: JASON/leon JOB#: [id number] / [id number]
--- NOTE | 2019-09-21 18:53 | PN ---
DATE: 09/21/2019 The patient was admitted with a flare-up of her ulcerative colitis. She was seen in the Emergency Room, was started on IV steroids in the form of Solu-Medrol 40 mg once a day. She claimed that she is having severe left lower quadrant pain and the only medication that helps her pain is hydromorphone. We started her on diet and continued all her medications. This morning, I was planning to talk to her electronic systems security assessment at [facility] and basically the patient decided to leave against medical advice and signed all the papers. JESSICA DORAN MD DR: JASON/leon JOB#: [id number] / [id number]
[2019-09-21] MEDS ORDERED: MESALAMINE 1,000 MG SUPP.RECT RC SCH (21:00)
== END 2019-09-21 07:55 | disposition left against medical advice (07) | DRG 392 ==
LOC: ER 19:12 → 1 SOUTH 23:00
PROVIDERS: ADMIT Internal Medicine; ATTEND Internal Medicine
DX: K52.89 Other specified noninfective gastroenteritis and colitis (principal); E11.9 Type 2 diabetes mellitus without complications; D50.9 Iron deficiency anemia, unspecified; E78.00 Pure hypercholesterolemia, unspecified; E78.5 Hyperlipidemia, unspecified; E86.0 Dehydration; G89.29 Other chronic pain; E87.6 Hypokalemia; I10 Essential (primary) hypertension; K59.00 Constipation, unspecified; F32.9 Major depressive disorder, single episode, unspecified; F41.9 Anxiety disorder, unspecified; K21.9 Gastro-esophageal reflux disease without esophagitis; R79.89 Other specified abnormal findings of blood chemistry; K76.0 Fatty (change of) liver, not elsewhere classified; M79.7 Fibromyalgia; Z53.29 Procedure and treatment not carried out because of patient's decision for other reasons; Z82.49 Family history of ischemic heart disease and other diseases of the circulatory system; Z83.3 Family history of diabetes mellitus; Z82.5 Family history of asthma and other chronic lower respiratory diseases; Z87.19 Personal history of other diseases of the digestive system; Z87.442 Personal history of urinary calculi; Z87.891 Personal history of nicotine dependence; Z90.49 Acquired absence of other specified parts of digestive tract; Z90.710 Acquired absence of both cervix and uterus; Z98.41 Cataract extraction status, right eye; Z98.42 Cataract extraction status, left eye; Z88.6 Allergy status to analgesic agent; Z88.1 Allergy status to other antibiotic agents; Z88.8 Allergy status to other drugs, medicaments and biological substances; Z86.010 Personal history of colon polyps
CPT/HCPCS: 36415; 71046; 74019; 74177; 80048; 80076; 80307; 81001; 82150; 82550; 83605; 83690; 84484; 85025; 85045; 85610; 85730; 86140; 93005; 94640; 96365; 96367; 96372; 96375; J1170; J1956; J2270; J2405; J2920; J2930; J3010; J3490; J7120; Q9966; Q9967; 99285-25

== ENCOUNTER 2019-10-05 17:34 | Emergency (ER) | payer OTHER ==
[~2019-10-05] VITALS: Ht 162.6 cm; Wt 111.4 kg
[2019-10-05] MEDS ORDERED: IV NORMAL SALINE 1,000ML 1,000 ML IV ONE (18:00)
--- NOTE | 2019-10-05 18:12 | PHYS DOC ---
Past History Past Medical History: Anemia, Anxiety, Depression, Fibromyalgia, GERD, High Cholesterol, Hypertension, Kidney Stones, Other Additional Past Medical Histor: ulcerative colitis, colon polyps Past Surgical History: Appendectomy, Cholecystectomy, Hysterectomy, Other Additional Past Surgical Histo: umbilical hernia repair Smoking: Cigarettes Alcohol Use: Occasionally Drug Use: None General Adult EDM: Chief Complaint: ABDOMINAL PAIN HPI: HPI: 48-year-old female returns emergency room with left lower quadrant abdominal pain and bloody diarrhea. Patient has a history of ulcerative colitis. She is taking her medications as prescribed. She was recently seen at this facility for similar complaints. She was placed on antibiotics and other treatment. She felt like she got better for a few days, but over the last couple days her symptoms have resumed. She rates the pain as a deep cramping that is severe. She has had a couple episodes of vomiting. She denies fever chills. Review of Systems: Review of Systems: Constitutional: Denies fever or chills Eyes: Denies change in visual acuity HENT: Denies nasal congestion or sore throat Respiratory: Denies cough or shortness of breath Cardiovascular: Denies chest pain or edema GI: Left lower quadrant abdominal pain, nausea, vomiting, bloody stools. : Denies dysuria Musculoskeletal: Denies back pain or joint pain Integument: Denies rash Neurologic: Denies headache, focal weakness or sensory changes Endocrine: Denies polyuria or polydipsia Lymphatic: Denies swollen glands Psychiatric: Denies depression or anxiety Heart Score: Risk Factors: Risk Factors: DM, Current or recent (<one month) smoker, HTN, HLP, family history of CAD, obesity. Risk Scores: Score 0 - 3: 2.5% MACE over next 6 weeks - Discharge Home Score 4 - 6: 20.3% MACE over next 6 weeks - Admit for Clinical Observation Score 7 - 10: 72.7% MACE over next 6 weeks - Early Invasive Strategies Current Medications: Current Meds: Current Medications Medications (Trade) Dose Ordered Sig/Enrike Start Time Stop Time Status Last Admin Dose Admin Sodium Chloride 1,000 ml @ 1,000 mls/hr 1X ONCE 10/05/19 18:00 10/05/19 18:59 Allergies: Allergies: Allergies Coded Allergies Type Severity Reaction Last Updated Verified cephalexin Allergy Intermediate "ears burn/rash on neck" 08/26/18 Yes ketorolac Allergy Intermediate Hives 08/09/19 Yes prochlorperazine Allergy Intermediate 08/09/19 Yes Physical Exam: PE: Constitutional: Well developed, morbidly obese, well nourished, no acute distress, non-toxic appearance. [] HENT: Normocephalic, atraumatic, bilateral external ears normal, oropharynx moist, no oral exudates, nose normal. [] Eyes: PERRLA, EOMI, conjunctiva normal, no discharge. [] Neck: Normal range of motion, no tenderness, supple, no stridor. [] Cardiovascular: Heart rate regular rhythm, no murmur [] Lungs & Thorax: Bilateral breath sounds clear to auscultation [] Abdomen: Bowel sounds normal, soft, moderate left lower quadrant tenderness with guarding, no masses, no pulsatile masses. [] Skin: Warm, dry, no erythema, no rash. [] Back: No tenderness, no CVA tenderness. [] Extremities: No tenderness, no cyanosis, no clubbing, ROM intact, no edema. [] Neurologic: Alert and oriented X 3, normal motor function, normal sensory function, no focal deficits noted. [] Psychologic: Affect normal, judgement normal, mood normal. [] EKG: EKG: [] Radiology/Procedures: Radiology/Procedures: [] Impressions: CT SCAN OF THE ABDOMEN AND PELVIS WITH IV CONTRAST. History: Reason: LLQ abdominal pain / Spl. Instructions: / History: Comparison:September 19, 2019. Procedure: Contiguous axial images of the abdomen and pelvis were performed after the administration of 75 cc of Isovue 370 IV contrast. Oral contrast: No. Findings: There is a healing nondisplaced fracture the posterior column of the right hip. There has been prior cholecystectomy and appendectomy. Liver: Unremarkable Spleen: Unremarkable Pancreas: Unremarkable Adrenal Glands: Unremarkable Kidneys: Unremarkable There is no mass or lymphadenopathy. There is no free air. There is no free fluid. The urinary bladder appears normal. Impression: No acute findings. PQRS Compliance Statement: One or more of the following individualized dose reduction techniques were utilized for this examination: 1. Automated exposure control 2. Adjustment of the mA and/or kV according to patient size 3. Use of iterative reconstruction technique out Electronically signed by: Raymond Blum III, MD (10/05/2019 7:08 PM) [id number] DICTATED AND SIGNED BY: RAYMOND BLUM III, MD DATE: 10/05/191907 CC: RUEL ANDRADE DO; PCP,NO ~ Course & Med Decision Making: Course & Med Decision Making Pertinent Labs and Imaging studies reviewed. (See chart for details) The patient CT is negative for acute findings. She has had no diarrhea bloody or otherwise in the ER. Her hemoglobin is 9.4. This is equal to a little better than her typical hemoglobins in her chart. I have given her dose of pain medicine in the emergency room. She had multiple narcotic prescriptions in the past. I do not see any reason to keep the patient in the hospital. She will follow-up with her GI doc as already scheduled. She is stable for discharge at this time. [] Kyraon Disclaimer: Draggema Disclaimer: This electronic medical record was generated, in whole or in part, using a voice recognition dictation system. Departure Departure: Impression: Primary Impression: Chronic abdominal pain Disposition: 01 HOME/RESIDENCE PRIOR TO ADM Condition: STABLE Referrals: PCPJOCE (PCP) Patient Instructions: Ulcerative Colitis Justification of Admission: Justification of Admission: Justification of Admission Dx: N/A RUEL ANDRADE DO Oct 05, 2019 18:12
[2019-10-05 18:23] LABS: BASO % 0 % (0-3); EOS % 0 % (0-3); HEMATOCRIT 30.1 % (36.0-47.0); HEMOGLOBIN 9.4 g/dL (12.0-15.5); LYMPH # 0.8 x10^3/uL (1.0-4.8); LYMPH % 8 % (24-48); MEAN CORPUSCULAR HEMOGLOBIN 24 pg (25-35); MEAN CORPUSCULAR HGB CONC 31 g/dL (31-37); MEAN CORPUSCULAR VOLUME 77 fL (79-100); MONO # 0.7 x10^3/uL (0.0-1.1); MONO % 7 % (0-9); NEUT # 8.2 x10^3uL (1.8-7.7); NEUT % 84 % (31-73); PLATELET COUNT 320 x10^3/uL (140-400); RED CELL DISTRIBUTION WIDTH 16.5 % (11.5-14.5); WHITE BLOOD COUNT 9.8 x10^3/uL (4.0-11.0)
[2019-10-05 18:31] LABS: GFR 58.7; POTASSIUM 3.5 mmol/L (3.5-5.1)
[2019-10-05 18:37] LABS: ALBUMIN 3.4 g/dL (3.4-5.0); TOTAL BILIRUBIN 0.2 mg/dL (0.2-1.0); TOTAL PROTEIN 6.8 g/dL (6.4-8.2)
--- NOTE | 2019-10-05 19:11 | RAD ---
CT SCAN OF THE ABDOMEN AND PELVIS WITH IV CONTRAST. History: Reason: LLQ abdominal pain / Spl. Instructions: / History: Comparison:September 19, 2019. Procedure: Contiguous axial images of the abdomen and pelvis were performed after the administration of 75 cc of Isovue 370 IV contrast. Oral contrast: No. Findings: There is a healing nondisplaced fracture the posterior column of the right hip. There has been prior cholecystectomy and appendectomy. Liver: Unremarkable Spleen: Unremarkable Pancreas: Unremarkable Adrenal Glands: Unremarkable Kidneys: Unremarkable There is no mass or lymphadenopathy. There is no free air. There is no free fluid. The urinary bladder appears normal. Impression: No acute findings. PQRS Compliance Statement: One or more of the following individualized dose reduction techniques were utilized for this examination: 1. Automated exposure control 2. Adjustment of the mA and/or kV according to patient size 3. Use of iterative reconstruction technique out Electronically signed by: Aung Blum III, MD (10/05/2019 7:08 PM) [id number]
[2019-10-05] MEDS ORDERED: HYDROmorphone PF 1 MG/ML DISP.SYRIN ONE (20:13)
[2019-10-05] MEDS ORDERED: HYDROmorphone PF 1 MG/ML DISP.SYRIN IV ONE ×2 (20:15→21:30)
[2019-10-05 20:25] LABS: AMPHETAMINE/METHAMPHETAMINE NEG (NEG); BARBITURATES NEG (NEG); BENZODIAZEPINES POS (NEG); CANNABINOIDS POS (NEG); COCAINE NEG (NEG); METHADONE NEG (NEG); OPIATES POS (NEG); PHENCYCLIDINE NEG (NEG)
[2019-10-05 20:30] LABS: BACTERIA,URINE FEW /HPF (0-FEW); BILIRUBIN,URINE NEG (NEG); CLARITY,URINE CLEAR; COLOR,URINE YELLOW; GLUCOSE,URINE NEG (NEG); NITRITE,URINE NEG (NEG); RBC,URINE OCC /HPF (0-2); SQUAMOUS EPITHELIAL CELL,UR OCC /LPF; UROBILINOGEN,URINE 0.2 mg/dL (0.2 mg/dL)
[2019-10-05 21:03] VITALS: BP 159/111
[2019-10-06] MEDS ORDERED: TRAZ-125 PO (23:37)
[2019-10-06] MEDS ORDERED: ALPR1TAB PO (23:37)
[2019-10-06] MEDS ORDERED: MESA10003 RC (23:37)
== END 2019-10-05 21:05 | disposition home or self-care (01) ==
LOC: ER 17:34
DX: G89.29 Other chronic pain (principal); R10.32 Left lower quadrant pain; R19.7 Diarrhea, unspecified; F41.9 Anxiety disorder, unspecified; F32.9 Major depressive disorder, single episode, unspecified; M79.7 Fibromyalgia; K21.9 Gastro-esophageal reflux disease without esophagitis; E78.00 Pure hypercholesterolemia, unspecified; I10 Essential (primary) hypertension; F17.210 Nicotine dependence, cigarettes, uncomplicated; Z87.442 Personal history of urinary calculi; Z90.710 Acquired absence of both cervix and uterus; Z90.49 Acquired absence of other specified parts of digestive tract; Z98.890 Other specified postprocedural states; Z88.8 Allergy status to other drugs, medicaments and biological substances; Z88.1 Allergy status to other antibiotic agents
CPT/HCPCS: 36415; 74176; 80053; 80307; 81001; 85025; 96361; 96374; 96376; 99285; J1170; J7030

== ENCOUNTER 2019-10-06 17:42 | Inpatient (IN) | payer OTHER ==
[~2019-10-06] VITALS: Ht 162.6 cm; Wt 111.6 kg
[2019-10-06] MEDS ORDERED: ONDANSETRON PF 4 MG/2 ML VIAL. IVP ONE (18:45)
[2019-10-06] MEDS ORDERED: HYDROmorphone PF 1 MG/ML DISP.SYRIN IV ONE (18:45)
[2019-10-06] MEDS ORDERED: IV NORMAL SALINE 1,000ML 1,000 ML IV ONE (18:45)
--- NOTE | 2019-10-06 18:46 | PHYS DOC ---
Past History Past Medical History: Anemia, Anxiety, Depression, Fibromyalgia, GERD, High Cholesterol, Hypertension, Kidney Stones, Other Additional Past Medical Histor: ulcerative colitis, colon polyps Past Surgical History: Appendectomy, Cholecystectomy, Hysterectomy, Other Additional Past Surgical Histo: umbilical hernia repair Smoking: Cigarettes Alcohol Use: None Drug Use: None General Adult EDM: Chief Complaint: ABDOMINAL PAIN HPI: HPI: 48-year-old female returns the emergency room with left lower quadrant abdominal pain. The patient was seen by myself yesterday. There were no significant findings on CT or with her lab work. See chart for more details. She comes back today because she still having a lot of pain. She tells me she has had 11 bouts of diarrhea today. She did not have a stool in the emergency room yesterday. The patient is hoping to get pain medication for the next couple of days until her appointment with gastroenterology. Patient reports a history of ulcerative colitis. She continues to deny fever or chills. Review of Systems: Review of Systems: Constitutional: Denies fever or chills Eyes: Denies change in visual acuity HENT: Denies nasal congestion or sore throat Respiratory: Denies cough or shortness of breath Cardiovascular: Denies chest pain or edema GI: Left lower quadrant abdominal pain, nausea, vomiting, diarrhea. : Denies dysuria Musculoskeletal: Denies back pain or joint pain Integument: Denies rash Neurologic: Denies headache, focal weakness or sensory changes Endocrine: Denies polyuria or polydipsia Lymphatic: Denies swollen glands Psychiatric: Denies depression or anxiety Heart Score: Risk Factors: Risk Factors: DM, Current or recent (<one month) smoker, HTN, HLP, family history of CAD, obesity. Risk Scores: Score 0 - 3: 2.5% MACE over next 6 weeks - Discharge Home Score 4 - 6: 20.3% MACE over next 6 weeks - Admit for Clinical Observation Score 7 - 10: 72.7% MACE over next 6 weeks - Early Invasive Strategies Current Medications: Current Meds: Current Medications Medications (Trade) Dose Ordered Sig/Enrike Start Time Stop Time Status Last Admin Dose Admin Hydromorphone HCl (Dilaudid) 1 mg 1X ONCE 10/06/19 18:45 10/06/19 18:46 UNV Ondansetron HCl (Zofran) 4 mg 1X ONCE 10/06/19 18:45 10/06/19 18:46 UNV Sodium Chloride 1,000 ml @ 1,000 mls/hr 1X ONCE 10/06/19 18:45 10/06/19 19:44 UNV Allergies: Allergies: Allergies Coded Allergies Type Severity Reaction Last Updated Verified cephalexin Allergy Intermediate "ears burn/rash on neck" 10/05/19 Yes ketorolac Allergy Intermediate Hives 10/05/19 Yes prochlorperazine Allergy Intermediate 10/05/19 Yes Physical Exam: PE: Constitutional: Well developed, morbidly obese, well nourished, no acute distress, non-toxic appearance. [] HENT: Normocephalic, atraumatic, bilateral external ears normal, oropharynx moist, no oral exudates, nose normal. [] Eyes: PERRLA, EOMI, conjunctiva normal, no discharge. [] Neck: Normal range of motion, no tenderness, supple, no stridor. [] Cardiovascular: Heart rate regular rhythm, no murmur [] Lungs & Thorax: Bilateral breath sounds clear to auscultation [] Abdomen: Bowel sounds normal, soft, left lower quadrant tenderness, no masses, no pulsatile masses. [] Skin: Warm, dry, no erythema, no rash. [] Back: No tenderness, no CVA tenderness. [] Extremities: No tenderness, no cyanosis, no clubbing, ROM intact, no edema. [] Neurologic: Alert and oriented X 3, normal motor function, normal sensory function, no focal deficits noted. [] Psychologic: Affect normal, judgement normal, mood normal. [] Current Patient Data: Vital Signs: Vital Signs Date Time Temp Pulse Resp B/P (MAP) Pulse Ox O2 Delivery O2 Flow Rate FiO2 10/06/19 17:50 98.5 117 18 154/105 (121) 99 EKG: EKG: [] Radiology/Procedures: Radiology/Procedures: [] Course & Med Decision Making: Course & Med Decision Making Pertinent Labs and Imaging studies reviewed. (See chart for details) I have given the patient 1 mg of Dilaudid for her pain. Her potassium is 2.8. This is a significant decrease from yesterday. We will replace it by IV. I will admit the patient to the hospital. I spoke with Dr. Cano and he has accepted her for admission. If the patient has a bowel movement in the hospital we will send it for evaluation. [] Dragon Disclaimer: Dragon Disclaimer: This electronic medical record was generated, in whole or in part, using a voice recognition dictation system. Departure Departure: Impression: Primary Impression: Chronic abdominal pain Additional Impressions: Diarrhea Qualified Codes: R19.7 - Diarrhea, unspecified Hypokalemia Disposition: ADMITTED INPATIENT Admitting Physician: Olimpia Cano Condition: STABLE Referrals: PCP,NO (PCP) Justification of Admission: Justification of Admission: Justification of Admission Dx: N/A RUEL ANDRADE DO Oct 06, 2019 18:46
[2019-10-06 18:52] LABS: BASO % 0 % (0-3); EOS % 1 % (0-3); HEMATOCRIT 30.2 % (36.0-47.0); HEMOGLOBIN 9.4 g/dL (12.0-15.5); LYMPH # 0.6 x10^3/uL (1.0-4.8); LYMPH % 9 % (24-48); MEAN CORPUSCULAR HEMOGLOBIN 24 pg (25-35); MEAN CORPUSCULAR HGB CONC 31 g/dL (31-37); MEAN CORPUSCULAR VOLUME 77 fL (79-100); MONO # 0.5 x10^3/uL (0.0-1.1); MONO % 9 % (0-9); NEUT # 5.1 x10^3uL (1.8-7.7); NEUT % 81 % (31-73); PLATELET COUNT 266 x10^3/uL (140-400); RED BLOOD COUNT 3.94 x10^6/uL (3.50-5.40); RED CELL DISTRIBUTION WIDTH 16.2 % (11.5-14.5); WHITE BLOOD COUNT 6.2 x10^3/uL (4.0-11.0)
[2019-10-06 19:01] LABS: ALBUMIN 3.4 g/dL (3.4-5.0); ALBUMIN/GLOBULIN RATIO 1.1 (1.0-1.7); ALK PHOS 79 U/L (46-116); ALT (SGPT) 21 U/L (14-59); ANION GAP 9 (6-14); AST (SGOT) < 5 U/L (15-37); BLOOD UREA NITROGEN 16 mg/dL (7-20); BUN/CREATININE RATIO 16 (6-20); CALCIUM 8.4 mg/dL (8.5-10.1); CARBON DIOXIDE 28 mmol/L (21-32); CHLORIDE 100 mmol/L (98-107); GFR 58.7; GLUCOSE 292 mg/dL (70-99); SODIUM 137 mmol/L (136-145); TOTAL BILIRUBIN 0.2 mg/dL (0.2-1.0); TOTAL PROTEIN 6.6 g/dL (6.4-8.2)
[2019-10-06 19:05] LABS: POTASSIUM 2.8 mmol/L (3.5-5.1)
[2019-10-06] MEDS ORDERED: POTASSIUM CL 40MEQ IN 0.9%NACL 1,000 ML IV ONE (19:15)
[2019-10-06 20:07] LABS: % BANDS 1 % (0-9); % LYMPHS 9 % (24-48); % MONOS 6 % (0-10); % SEGS 84 % (35-66); PLT ESTIMATE ADEQUATE (ADEQUATE)
[2019-10-06] MEDS: HYDROmorphone PF 1 MG/ML DISP.SYRIN IV PRN ×2 (21:46→23:50)
[2019-10-06 22:15] VITALS: BP 156/101
[2019-10-06] MEDS ORDERED: ALPR1TAB PO (23:37)
[2019-10-06] MEDS ORDERED: TRAZ-125 PO (23:37)
[2019-10-06] MEDS ORDERED: MESA10003 RC (23:37)
--- NOTE | 2019-10-07 00:04 | NUR ---
PT presented with abdominal pain and multiple bouts of diarrhea at home. PT with history of ulcerative colitis. PT with increasing pain. PT with no BM since being seen in ER or admitted on floor.
[2019-10-07] MEDS: HYDROmorphone PF 1 MG/ML DISP.SYRIN IV PRN ×7 (02:44→22:17)
[2019-10-07 07:36] LABS: CALCIUM 8.1 mg/dL (8.5-10.1); CREATININE 0.8 mg/dL (0.6-1.0); GFR 75.9; POTASSIUM 3.6 mmol/L (3.5-5.1)
[2019-10-07] MEDS ORDERED: MAGNESIUM SULFATE 1GM 100 ML IV ONE (07:45)
[2019-10-07 07:59] LABS: HEMATOCRIT 29.2 % (36.0-47.0); HEMOGLOBIN 8.8 g/dL (12.0-15.5); RED BLOOD COUNT 3.64 x10^6/uL (3.50-5.40); RED CELL DISTRIBUTION WIDTH 16.8 % (11.5-14.5); WHITE BLOOD COUNT 4.3 x10^3/uL (4.0-11.0)
--- NOTE | 2019-10-07 08:07 | HP ---
ADMIT DATE: ATTENDING PHYSICIAN: Dr. Cote. CHIEF COMPLAINT: Left lower quadrant abdominal pain. HISTORY OF PRESENT ILLNESS: The patient is a 48-year-old female with multiple medical issues. She was admitted through the ED with significant left lower quadrant abdominal pain. She had the CT of the abdomen done, which showed no evidence of obstruction. She has had some diarrhea. Potassium is diminished at 2.9 mEq. She is clinically dehydrated. She was admitted then for further treatment, rehydration and potassium replacement. She has had a longstanding history of depression, anxiety, irritable bowel syndrome, colon polyps, questionable history of ulcerative colitis. There was no documentation. She has had sporadic medical care. PAST SURGICAL HISTORY: Includes appendectomy, cholecystectomy and hysterectomy. Other medical issues include anxiety, depression, chronic anemia, fibromyalgia, gastroesophageal reflux disease, hypertension, hyperlipidemia, kidney stones and noncompliance of medications. CURRENT MEDICINES: Reviewed. She was on scheduled alprazolam, dicyclomine, Cymbalta, Prevacid, mesalamine, ondansetron, Zocor and trazodone at bedtime. ALLERGIES: She has allergies to CEPHALEXIN, KETOROLAC and PROCHLORPERAZINE, exact reaction is unclear. SOCIAL HISTORY: She was a smoker up to 2 years ago. She denies any alcohol use. FAMILY HISTORY: Mom at age 74 with COPD complications. Father has diabetes and heart disease. He is alive at age 80. REVIEW OF SYSTEMS: Significant for abdominal pain, depression, weight gain, sleep disturbances, nausea, no energy. No bloody stools. No shortness of breath. All other systems reviewed and determined to be negative. PHYSICAL EXAMINATION: GENERAL: When I saw her, this is an obese, middle-aged female with a flat affect. INITIAL VITAL SIGNS: Showed a blood pressure of 156/100, pulse was 96 and regular, temperature 98.1 degrees Fahrenheit, room air saturation 98%. HEENT: Head is without trauma. Pupils are reactive. Sclerae is nonicteric. Oropharynx is clear. NECK: Supple, no bruits identified. LUNGS: Otherwise clear. CARDIOVASCULAR: Showed regular heart tones. No gallops, no murmurs. Peripheral pulses are palpable. ABDOMEN: Soft, protuberant. Minimal guarding, no rebound tenderness. Bowel sounds are hypoactive. EXTREMITIES: Showed no cyanosis or edema. NEUROLOGIC: Focally intact. No deficits. Speech is fluent. SKIN: Warm and dry. IMAGING: CT of the abdomen and pelvis as noted. LABORATORY WORK: Hemoglobin is 9.4 g/dL with a white count of 6200. Potassium is 2.8 mEq per liter. Creatinine 1.0. Nonfasting blood sugar 292. Transaminases and bilirubin are all normal. ASSESSMENT: 1. A 48-year-old female with significant left lower quadrant abdominal pain. No evidence of obstruction or diverticular disease. I believe her symptoms are functional. 2. Recent diarrhea, etiology is unclear. She has not had any diarrhea since she has been up here. 3. Hypokalemia. 4. Obesity. 5. Underlying depression. 6. Anxiety. 7. Most likely irritable bowel syndrome. 8. Essential hypertension. 9. Questionable compliance of meds. PLAN: 1. Admit to the inpatient unit. 2. IV hydration. 3. Potassium and magnesium replacement. 4. Pain and nausea control. 5. Serial chemistries. DAMON COTE MD DR: ANDREA/leon JOB#: [id number] / [id number]
[2019-10-07] MEDS ORDERED: POTASSIUM CHLORIDE 20 MEQ TABLET.ER. PO ONE (09:00)
--- NOTE | 2019-10-07 09:58 | NUR ---
Pt is located in pt room at time of assessment and medication administration. Pt is requesting pain medication r/t abdominal pain. Pt is A&Ox4. Pt is pleasant and cooperative with medications whole with water. Pt is resting in bed at this time. Will continue to monitor.
[2019-10-07] MEDS: ONDANSETRON PF 4 MG/2 ML VIAL. IVP PRN ×2 (10:14→15:15)
[2019-10-07 10:46] VITALS: BP 145/96
[2019-10-07] MEDS ORDERED: ALPR1TAB2 PO (12:14)
[2019-10-07] MEDS: ALPRAZolam 0.5 MG TABLET PO SCH ×2 (13:21→21:09)
[2019-10-07 15:17] VITALS: BP 152/83
[2019-10-07 20:01] VITALS: BP 170/111
[2019-10-07] MEDS: POTASSIUM CHLORIDE 20 MEQ TABLET.ER. PO SCH (21:09)
[2019-10-07] MEDS ORDERED: ONDANSETRON PF 4 MG/2 ML VIAL. IVP PRN (21:45)
[2019-10-08] MEDS: HYDROmorphone PF 1 MG/ML DISP.SYRIN IV PRN ×6 (01:14→12:15)
[2019-10-08 06:16] LABS: CALCIUM 8.6 mg/dL (8.5-10.1); CREATININE 0.7 mg/dL (0.6-1.0); GFR 88.6; POTASSIUM 4.2 mmol/L (3.5-5.1)
[2019-10-08 07:53] VITALS: BP 142/92
[2019-10-08] MEDS: ALPRAZolam 0.5 MG TABLET PO SCH (08:04)
[2019-10-08] MEDS: POTASSIUM CHLORIDE 20 MEQ TABLET.ER. PO SCH (08:04)
[2019-10-08 11:31] VITALS: BP 124/89
--- NOTE | 2019-10-08 11:58 | DS ---
DATE OF DISCHARGE: 10/08/2019 ATTENDING PHYSICIAN: Dr. Cote. FINAL DISCHARGE DIAGNOSES: 1. Self-limiting gastroenteritis. 2. Hypokalemia, resolved. 3. Diarrhea, resolved. 4. Underlying depression with anxiety. 5. Irritable bowel syndrome. 6. Essential hypertension. 7. Noncompliance of meds. HISTORY AND PHYSICAL: This 48-year-old female with multiple psychiatric issues is admitted with nausea, vomiting, hypokalemia. Potassium was 2.8 mEq/dL. PHYSICAL EXAMINATION: Please see the dictated note. PERTINENT LABORATORY AND X-RAY STUDIES: The obligatory CT of the abdomen and pelvis showed no distinct pathology. No obstruction, no acute findings are identified. Her potassium on admission was 2.8 mEq per liter, replaced and was up to 3.6 and on the next day 4.2 mEq per liter. Sodium was normal. Hemoglobin maintained at 9.4 g/dL with white count of 6200. COURSE IN THE HOSPITAL: The patient was admitted. She was treated with Dilaudid and nausea medication. Diet was advanced. No further diarrhea or vomiting. She had clearly underlying anxiety issues with dependence on pain meds. At this time, I reluctantly agreed to give her a small course of Percocet 10 mg every 6 hours p.r.n. pain, #30 with no refills. In addition, Phenergan 25 mg p.o. q. 6 hours p.r.n. pain. She will continue her Xanax, Cymbalta, dicyclomine, Protonix, mesalamine and Zocor dose is unchanged. She was discharged then from our hospital in stable condition with explicit instructions and followup care. DAMON COTE MD DR: ANDREA/leon JOB#: [id number] / [id number]
--- NOTE | 2019-10-08 12:24 | NUR ---
PATIENT IS DISCHARGED HOME, VS ARE STABLE, DISCHARGE INSTRUCTION AND PRESCRIBED MEDICATION ARE REVIEWED, PT VERBALIZED UNDERSTANDING. PT LEFT ROOM VIA W/C ACCOMPANIED BY THIS RN. PATIENT IS TAKEN HOME BY FAMILY MEMBER VIA PERSONAL VEHICLE.
== END 2019-10-08 12:20 | disposition home or self-care (01) | DRG 641 ==
LOC: ER 17:42 → 1 SOUTH 20:30
PROVIDERS: ADMIT Internal Medicine; ATTEND Internal Medicine
DX: E87.6 Hypokalemia (principal); Z68.41 Body mass index [BMI] 40.0-44.9, adult; K58.0 Irritable bowel syndrome with diarrhea; E78.00 Pure hypercholesterolemia, unspecified; E78.5 Hyperlipidemia, unspecified; E86.0 Dehydration; F41.8 Other specified anxiety disorders; G89.29 Other chronic pain; I10 Essential (primary) hypertension; M79.7 Fibromyalgia; E66.01 Morbid (severe) obesity due to excess calories; K21.9 Gastro-esophageal reflux disease without esophagitis; Z82.5 Family history of asthma and other chronic lower respiratory diseases; Z83.3 Family history of diabetes mellitus; Z87.19 Personal history of other diseases of the digestive system; Z87.442 Personal history of urinary calculi; Z87.891 Personal history of nicotine dependence; Z90.49 Acquired absence of other specified parts of digestive tract; Z90.710 Acquired absence of both cervix and uterus; Z91.14 Patient's other noncompliance with medication regimen; Z88.1 Allergy status to other antibiotic agents; Z88.8 Allergy status to other drugs, medicaments and biological substances
CPT/HCPCS: 36415; 80048; 80053; 85007; 85025; 85027; 96365; 96375; 99285; J1170; J2405; J3475; J7030

== ENCOUNTER 2019-10-15 15:52 | Emergency (ER) | payer OTHER ==
[~2019-10-15] VITALS: Ht 162.6 cm; Wt 110.8 kg
[~2019-10-15 15:52] MED LIST changes: +ALPR1TAB PO; +ALPR1TAB2 PO; +TRAZ-125 PO
[2019-10-15] MEDS ORDERED: IV NORMAL SALINE 1,000ML 1,000 ML IV ONE (16:30)
[2019-10-15] MEDS ORDERED: diphenhydrAMINE 50 MG/ML VIAL IVP ONE (16:30)
[2019-10-15] MEDS ORDERED: ONDANSETRON PF 4 MG/2 ML VIAL. IVP ONE (16:30)
--- NOTE | 2019-10-15 16:42 | PHYS DOC ---
Past History Past Medical History: Anemia, Anxiety, Depression, Fibromyalgia, GERD, High Cholesterol, Hypertension, Kidney Stones, Other Additional Past Medical Histor: ulcerative colitis, colon polyps (RUEL ANDRADE DO) Past Surgical History: Appendectomy, Cholecystectomy, Hysterectomy, Other Additional Past Surgical Histo: umbilical hernia repair (RUEL ANDRADE DO) Smoking: Cigarettes Alcohol Use: Rarely Drug Use: None (RUEL ANDRADE DO) General Adult EDM: Chief Complaint: ABDOMINAL PAIN HPI: HPI: 48-year-old female returns to the emergency room with continued left lower quadrant abdominal pain, vomiting, diarrhea. The abdominal pain is left lower quadrant. It is moderate to severe. It is a cramping pain. The patient is been seen for this multiple times the emergency room. I have personally seen her 3 times in the last month. She was recently admitted for hypokalemia and this abdominal pain. She was discharged with Percocet and states that she is not out of these yet. She took 3 doses today and still has pain. She tells me that she has a colonoscopy scheduled for Saturday, which is October 19. The patient expects to get some information about what is going on at that time. She is also expecting that doctor to provide pain medication and a consult for pain management if appropriate at that time. Patient denies fever chills. We have not seen proof of diarrhea in the emergency room for her last 3 visits. (RUEL ANDRADE DO) Review of Systems: Review of Systems: Constitutional: Denies fever or chills Eyes: Denies change in visual acuity HENT: Denies nasal congestion or sore throat Respiratory: Denies cough or shortness of breath Cardiovascular: Denies chest pain or edema GI: Left lower quadrant abdominal pain, nausea, vomiting, bloody stools and diarrhea : Denies dysuria Musculoskeletal: Denies back pain or joint pain Integument: Denies rash Neurologic: Denies headache, focal weakness or sensory changes Endocrine: Denies polyuria or polydipsia Lymphatic: Denies swollen glands Psychiatric: Denies depression or anxiety (RUEL ANDRADE DO) Heart Score: Risk Factors: Risk Factors: DM, Current or recent (<one month) smoker, HTN, HLP, family history of CAD, obesity. Risk Scores: Score 0 - 3: 2.5% MACE over next 6 weeks - Discharge Home Score 4 - 6: 20.3% MACE over next 6 weeks - Admit for Clinical Observation Score 7 - 10: 72.7% MACE over next 6 weeks - Early Invasive Strategies (RUEL ANDRADE DO) Current Medications: Current Meds: Current Medications Medications (Trade) Dose Ordered Sig/Enrike Start Time Stop Time Status Last Admin Dose Admin Diphenhydramine HCl (Benadryl) 50 mg 1X ONCE 10/15/19 16:30 10/15/19 16:33 DC Ondansetron HCl (Zofran) 4 mg 1X ONCE 10/15/19 16:30 10/15/19 16:33 DC Sodium Chloride 1,000 ml @ 1,000 mls/hr 1X ONCE 10/15/19 16:30 10/15/19 17:29 (RUEL ANDRADE DO) Allergies: Allergies: Allergies Coded Allergies Type Severity Reaction Last Updated Verified cephalexin Allergy Intermediate "ears burn/rash on neck" 10/05/19 Yes ketorolac Allergy Intermediate Hives 10/05/19 Yes prochlorperazine Allergy Intermediate 10/05/19 Yes (RUEL ANDRADE DO) Physical Exam: PE: Constitutional: Well developed, morbidly obese, well nourished, no acute distress, non-toxic appearance. [] HENT: Normocephalic, atraumatic, bilateral external ears normal, oropharynx moist, no oral exudates, nose normal. [] Eyes: PERRLA, EOMI, conjunctiva normal, no discharge. [] Neck: Normal range of motion, no tenderness, supple, no stridor. [] Cardiovascular: Heart rate regular rhythm, no murmur [] Lungs & Thorax: Bilateral breath sounds clear to auscultation [] Abdomen: Bowel sounds normal, soft, no tenderness, no masses, no pulsatile masses. [] Skin: Warm, dry, no erythema, no rash. [] Back: No tenderness, no CVA tenderness. [] Extremities: No tenderness, no cyanosis, no clubbing, ROM intact, no edema. [] Neurologic: Alert and oriented X 3, normal motor function, normal sensory function, no focal deficits noted. [] Psychologic: Affect normal, judgement normal, mood anxious. [] (RUEL ANDRADE DO) PE: Abdomen soft with mild left side abdominal tenderness (QUENTIN MEDLEY MD) Current Patient Data: Vital Signs: Vital Signs Date Time Temp Pulse Resp B/P (MAP) Pulse Ox O2 Delivery O2 Flow Rate FiO2 10/15/19 16:02 98.2 114 14 169/107 (127) 99 Room Air (ANDRADERUEL ) Labs: Laboratory Tests Test 10/15/19 16:44 10/15/19 17:22 White Blood Count 8.3 x10^3/uL Red Blood Count 3.56 x10^6/uL Hemoglobin 8.6 g/dL Hematocrit 27.1 % Mean Corpuscular Volume 76 fL Mean Corpuscular Hemoglobin 24 pg Mean Corpuscular Hemoglobin Concent 32 g/dL Red Cell Distribution Width 16.5 % Platelet Count 268 x10^3/uL Neutrophils (%) (Auto) 89 % Lymphocytes (%) (Auto) 5 % Monocytes (%) (Auto) 6 % Eosinophils (%) (Auto) 0 % Basophils (%) (Auto) 0 % Neutrophils # (Auto) 7.3 x10^3uL Lymphocytes # (Auto) 0.4 x10^3/uL Monocytes # (Auto) 0.5 x10^3/uL Eosinophils # (Auto) 0.0 x10^3/uL Basophils # (Auto) 0.0 x10^3/uL Segmented Neutrophils % 85 % Band Neutrophils % 1 % Lymphocytes % 7 % Monocytes % 7 % Platelet Estimate Adequate Sodium Level 139 mmol/L Potassium Level 3.4 mmol/L Chloride Level 101 mmol/L Carbon Dioxide Level 27 mmol/L Anion Gap 11 Blood Urea Nitrogen 13 mg/dL Creatinine 0.9 mg/dL Estimated GFR (Cockcroft-Gault) 66.3 BUN/Creatinine Ratio 14 Glucose Level 182 mg/dL Calcium Level 8.9 mg/dL Total Bilirubin 0.2 mg/dL Aspartate Amino Transf (AST/SGOT) < 5 U/L Alanine Aminotransferase (ALT/SGPT) 24 U/L Alkaline Phosphatase 74 U/L Total Protein 6.9 g/dL Albumin 3.6 g/dL Albumin/Globulin Ratio 1.1 Urine Collection Type Unknown Urine Color Yellow Urine Clarity Clear Urine pH 6.5 Urine Specific [place] 1.015 Urine Protein Neg Urine Glucose (UA) Neg mg/dL Urine Ketones (Stick) Neg mg/dL Urine Blood Neg Urine Nitrite Neg Urine Bilirubin Neg Urine Urobilinogen Dipstick 0.2 mg/dL Urine Leukocyte Esterase Neg Urine RBC 0 /HPF Urine WBC 1-4 /HPF Urine Squamous Epithelial Cells Occ /LPF Urine Bacteria 0 /HPF Urine Opiates Screen Pos Urine Methadone Screen Neg Urine Barbiturates Neg Urine Phencyclidine Screen Neg Urine Amphetamine/Methamphetamine Neg Urine Benzodiazepines Screen Pos Urine Cocaine Screen Neg Urine Cannabinoids Screen Pos Urine Ethyl Alcohol Neg Current Medications Medications (Trade) Dose Ordered Sig/Enrike Route PRN Reason Start Time Stop Time Status Last Admin Dose Admin Sodium Chloride 1,000 ml @ 1,000 mls/hr 1X ONCE IV 10/15/19 16:30 10/15/19 17:29 DC 10/15/19 16:30 Ondansetron HCl (Zofran) 4 mg 1X ONCE IVP 10/15/19 16:30 10/15/19 16:33 DC 10/15/19 16:49 Diphenhydramine HCl (Benadryl) 50 mg 1X ONCE IVP 10/15/19 16:30 10/15/19 16:33 DC 10/15/19 16:49 Hydromorphone HCl (Dilaudid) 1 mg 1X ONCE IV 10/15/19 16:45 10/15/19 16:46 DC 10/15/19 16:54 Dicyclomine HCl (Bentyl) 20 mg 1X ONCE IM 10/15/19 19:15 10/15/19 19:16 DC Vital Signs: Vital Signs Date Time Temp Pulse Resp B/P (MAP) Pulse Ox O2 Delivery O2 Flow Rate FiO2 10/15/19 15:59 98.2 114 14 169/107 (127) 99 Room Air Vital Signs Date Time Temp Pulse Resp B/P (MAP) Pulse Ox O2 Delivery O2 Flow Rate FiO2 10/15/19 19:20 100 14 149/94 (112) 97 Room Air 10/15/19 16:02 98.2 (QUENTIN MEDLEY MD) EKG: EKG: [] (RUEL ANDRADE DO) Radiology/Procedures: Radiology/Procedures: [] (RUEL ANDRADE DO) Course & Med Decision Making: Course & Med Decision Making Pertinent Labs and Imaging studies reviewed. (See chart for details) I made it clear to the patient that she cannot keep getting narcotics from the emergency room or the hospitalist when she gets admitted. She must have a single source of pain management. She has an appointment and a colonoscopy next week as stated in the HPI. I do not expect to give her any more pain medica tion prescriptions after that time. The patient's work-up is pending. I am signing her out to Dr. Medley at 1800. [] (RUEL ANDRADE DO) Course & Med Decision Making Received signout from Dr. Andrade regarding a patient with abdominal pain. Patient has had multiple visits for abdominal pain in the past and recently. Recent negative CT scan. Work-up is reassuring. Abdominal exam is soft and nonsurgical. Patient be stable for discharge outpatient follow-up return precau tions given (QUENTIN MEDLEY MD) Dragon Disclaimer: Dragon Disclaimer: This electronic medical record was generated, in whole or in part, using a voice recognition dictation system. (RUEL ANDRADE DO) Departure Departure: Impression: Primary Impression: Chronic abdominal pain Disposition: HOME/RESIDENCE PRIOR TO ADM Condition: STABLE Referrals: PCP,UNKNOWN (PCP) QUENTIN ZALDIVAR MD 2-3 days Patient Instructions: Abdominal Pain Additional Instructions: EMERGENCY DEPARTMENT GENERAL DISCHARGE INSTRUCTIONS THANK YOU for coming to the Emergency Department (ED) today and trusting us with your care. We trust that you had a positive experience in our Emergency Department. YOUR FOLLOW UP INSTRUCTIONS ARE FOLLOWS: Do you have a private doctor? If you do not have a private doctor, please ask for a resource list of physicians or clinics that may be able to assist you with follow up care. The Emergency Physician has interpreted your x-rays. The X-ray specialist will also review them. If there is a change in the findings you will be notified in 48 hours when at all possible. A lab test or lab culture may have been done, your results will be reviewed and you will be notified if you need a change in treatment. ADDITIONAL INSTRUCTIONS AND INFORMATION Your care today has been supervised by a physician who is specially trained in emergency care. Many problems require more than one evaluation for a complete diagnosis and treatment. We recommend that you schedule your follow up appointment as recommended to ensure complete treatment of your illness or injury. If you are unable to obtain follow up care and continue to have a problem, or if your condition worsens we recommend that you return to the ED. We are not able to safely determine your condition over the phone nor are we able to give sound medical advice over the phone. For these safety reasons, if you call for medical advice we will ask you to come to the ED for further evaluation If you have any questions regarding these discharge instructions please call the ED at . SAFETY INFORMATION In the interest of safety, wellness, and injury prevention; we encourage you to wear your seatbelt, if you smoke; quit smoking, and we encourage your family to use protective helmet for bicycling and other sporting events that present an increased risk for head injury. IF YOUR SYMPTOMS WORSEN OR NEW SYMPTOMS DEVELOP, OR YOU HAVE CONCERNS ABOUT YOUR CONDITION; OR IF YOUR CONDITION WORSENS WHILE YOU ARE WAITING FOR YOUR FOLLOW UP APPOINTMENT; EITHER CONTACT YOUR PRIMARY CARE DOCTOR, THE PHYSICIAN WHOSE NAME AND NUMBER YOU WERE GIVEN, OR RETURN TO THE ED IMMEDIATELY. Justification of Admission: Justification of Admission: Justification of Admission Dx: N/A (RUEL ANDRADE DO) Justification of Admission Dx: N/A (QUENTIN MEDLEY MD) RUEL ANDRADE DO Oct 15, 2019 16:42 QUENTIN MEDLEY MD Oct 15, 2019 19:03
[2019-10-15] MEDS ORDERED: HYDROmorphone PF 1 MG/ML DISP.SYRIN IV ONE (16:45)
[2019-10-15 17:15] LABS: ANION GAP 11 (6-14); BLOOD UREA NITROGEN 13 mg/dL (7-20); BUN/CREATININE RATIO 14 (6-20); CALCIUM 8.9 mg/dL (8.5-10.1); CARBON DIOXIDE 27 mmol/L (21-32); CHLORIDE 101 mmol/L (98-107); CREATININE 0.9 mg/dL (0.6-1.0); GFR 66.3; GLUCOSE 182 mg/dL (70-99); POTASSIUM 3.4 mmol/L (3.5-5.1); SODIUM 139 mmol/L (136-145)
[2019-10-15 17:16] LABS: BASO % 0 % (0-3); EOS % 0 % (0-3); HEMATOCRIT 27.1 % (36.0-47.0); HEMOGLOBIN 8.6 g/dL (12.0-15.5); LYMPH # 0.4 x10^3/uL (1.0-4.8); LYMPH % 5 % (24-48); MEAN CORPUSCULAR HEMOGLOBIN 24 pg (25-35); MEAN CORPUSCULAR HGB CONC 32 g/dL (31-37); MEAN CORPUSCULAR VOLUME 76 fL (79-100); MONO # 0.5 x10^3/uL (0.0-1.1); MONO % 6 % (0-9); NEUT # 7.3 x10^3uL (1.8-7.7); NEUT % 89 % (31-73); PLATELET COUNT 268 x10^3/uL (140-400); RED BLOOD COUNT 3.56 x10^6/uL (3.50-5.40); RED CELL DISTRIBUTION WIDTH 16.5 % (11.5-14.5); WHITE BLOOD COUNT 8.3 x10^3/uL (4.0-11.0)
[2019-10-15 17:20] LABS: ALBUMIN 3.6 g/dL (3.4-5.0); ALBUMIN/GLOBULIN RATIO 1.1 (1.0-1.7); ALK PHOS 74 U/L (46-116); ALT (SGPT) 24 U/L (14-59); TOTAL BILIRUBIN 0.2 mg/dL (0.2-1.0); TOTAL PROTEIN 6.9 g/dL (6.4-8.2)
[2019-10-15 17:22] LABS: AST (SGOT) < 5 U/L (15-37)
[2019-10-15 17:41] LABS: BARBITURATES NEG (NEG); BENZODIAZEPINES POS (NEG); CANNABINOIDS POS (NEG); COCAINE NEG (NEG); METHADONE NEG (NEG); OPIATES POS (NEG); PHENCYCLIDINE NEG (NEG)
[2019-10-15 17:48] LABS: AMPHETAMINE/METHAMPHETAMINE NEG (NEG)
[2019-10-15 18:02] LABS: BACTERIA,URINE 0 /HPF (0-FEW); BILIRUBIN,URINE NEG (NEG); CLARITY,URINE CLEAR; COLOR,URINE YELLOW; GLUCOSE,URINE NEG (NEG); NITRITE,URINE NEG (NEG); RBC,URINE 0 /HPF (0-2); SQUAMOUS EPITHELIAL CELL,UR OCC /LPF; UROBILINOGEN,URINE 0.2 mg/dL (0.2 mg/dL)
[2019-10-15] MEDS ORDERED: DICYCLOMINE 20 MG/2 ML VIAL. IM ONE (19:15)
[2019-10-15 19:20] VITALS: BP 149/94
[2019-10-15 19:48] LABS: % BANDS 1 % (0-9); % LYMPHS 7 % (24-48); % MONOS 7 % (0-10); % SEGS 85 % (35-66)
[2019-10-15 19:49] LABS: PLT ESTIMATE ADEQUATE (ADEQUATE)
== END 2019-10-15 19:20 | disposition home or self-care (01) ==
LOC: ER 15:52
DX: G89.29 Other chronic pain (principal); R10.32 Left lower quadrant pain; R11.2 Nausea with vomiting, unspecified; R19.7 Diarrhea, unspecified; M79.7 Fibromyalgia; K21.9 Gastro-esophageal reflux disease without esophagitis; E78.00 Pure hypercholesterolemia, unspecified; I10 Essential (primary) hypertension; F17.210 Nicotine dependence, cigarettes, uncomplicated; Z87.442 Personal history of urinary calculi; Z90.89 Acquired absence of other organs; Z90.49 Acquired absence of other specified parts of digestive tract; Z90.710 Acquired absence of both cervix and uterus; Z88.1 Allergy status to other antibiotic agents; Z88.8 Allergy status to other drugs, medicaments and biological substances
CPT/HCPCS: 36415; 80053; 80307; 81001; 85007; 85025; 96361; 96374; 96375; 99284; J1170; J1200; J2405; J7030

== ENCOUNTER 2019-11-12 19:21 | Emergency (ER) | payer OTHER ==
[~2019-11-12] VITALS: Ht 162.6 cm; Wt 110.8 kg
[2019-11-12] MEDS ORDERED: IV RINGERS SOLUTION,LACTATED 1,000 ML IV SCH (19:34)
[2019-11-12] MEDS ORDERED: FAMOTIDINE 20 MG/2 ML VIAL IVP ONE (19:45)
--- NOTE | 2019-11-12 19:59 | PHYS DOC ---
Past History Past Medical History: Anemia, Anxiety, Depression, Fibromyalgia, GERD, High Cholesterol, Hypertension, Kidney Stones, Other Additional Past Medical Histor: ulcerative colitis, colon polyps Past Medical History Chronic Abdomen Pain Past Surgical History: Appendectomy, Cholecystectomy, Hysterectomy, Other Additional Past Surgical Histo: umbilical hernia repair Smoking: Cigarettes Alcohol Use: Rarely Drug Use: None General Adult EDM: Chief Complaint: ABDOMINAL PAIN HPI: HPI: "..I ve been hurting all day...all I ve had to eat is Oatmeal at [employer].. they up my sulfasalazine after my last colonoscopy 3 weeks ago... But it does not seem to be helping yet... They said it would be weeks before it would actually make a difference... Patient is a 48 year old female who presents with above hx and complaints generalized abdomen pain. Patient today localized pain more in the left lower quadrant. Patient normally follows with Dr. Padilla at [facility]. Has had a recent colonoscopy 3 weeks ago. Patient has multiple visits for chronic abdomen pain. Patient denies any vomiting today. Patient has had some nausea. Patient states she has had normal stools. Did have some loose stools or diarrhea. No bleeding with stools. No recent ill contacts animal are or human. No recent travel outside [facility]. Patient has significant medical history for chronic abdomen pain. Patient has longstanding history of depression, anxiety, IBS, colon polyps, ulcerative colitis colitis, fibromyalg ia, GERD, hypertension, hyperlipidemia, kidney stones, and at times appears to have a narcotic seeking behavior. Patient does have a history of previous noncompliance with medical regimens. Patient has had multiple abdomen surgeries including appendectomy, cholecystectomy, hysterectomy, and multiple colonoscopies. Patient does continue to smoke. Review of Systems: Review of Systems: Constitutional: Denies fever or chills Eyes: Denies change in visual acuity HENT: Denies nasal congestion or sore throat Respiratory: Denies cough or shortness of breath Cardiovascular: Denies chest pain GI: Complains of abdominal pain, nausea,. Denies vomiting, bloody stools or diarrhea : Denies dysuria Musculoskeletal: Complains of left wrist pain Integument: Denies rash Neurologic: Denies headache, focal weakness or sensory changes Endocrine: Denies polyuria or polydipsia Lymphatic: Denies swollen glands Psychiatric: Denies depression or anxiety Heart Score: HEART Score for Chest Pain: HEART Score for Chest Pain Response (Comments) Value History Slighlty/Non-Suspicious 0 ECG Nonspecific Repolarizatio 1 Age >45 - < 65 1 Risk Factors 1 or 2 Risk Factors 1 Troponin >1-<3x Normal Limit 1 Total 4 Risk Factors: Risk Factors: DM, Current or recent (<one month) smoker, HTN, HLP, family history of CAD, obesity. Risk Scores: Score 0 - 3: 2.5% MACE over next 6 weeks - Discharge Home Score 4 - 6: 20.3% MACE over next 6 weeks - Admit for Clinical Observation Score 7 - 10: 72.7% MACE over next 6 weeks - Early Invasive Strategies Family History: Family History: Mother of COPD at age 74 Father has diabetes and heart disease. Current Medications: Current Meds: Current Medications Medications (Trade) Dose Ordered Sig/Enrike Start Time Stop Time Status Last Admin Dose Admin Famotidine (Pepcid Vial) 20 mg 1X ONCE 11/12/19 19:45 11/12/19 19:46 DC Lactated Ringer's 1,000 ml @ 1,000 mls/hr Q1H 11/12/19 19:34 11/12/19 20:33 Allergies: Allergies: Allergies Coded Allergies Type Severity Reaction Last Updated Verified cephalexin Allergy Intermediate "ears burn/rash on neck" 11/12/19 Yes ketorolac Allergy Intermediate Hives 11/12/19 Yes prochlorperazine Allergy Intermediate 11/12/19 Yes Physical Exam: PE: Constitutional: Moderate acute distress, non-toxic appearance. [] HENT: Normocephalic, atraumatic, bilateral external ears normal, oropharynx moist, no oral exudates, nose normal. [] Eyes: PERRLA, EOMI, conjunctiva normal, no discharge. [] Neck: Normal range of motion, no tenderness, supple, no stridor. [] More than 17 inches circumference Cardiovascular: Tachycardia heart rate regular rhythm, no murmur [] Lungs & Thorax: Bilateral breath sounds equal apex with scattered wheezes on auscultation [] Abdomen: Bowel sounds decreased, soft, left lower tenderness, no masses, no pulsatile masses. [] Multiple surgery scars. Distended. Obese Skin: Warm, dry, no erythema, no rash. [] Healing ulcer right leg chu Back: No tenderness, no CVA tenderness. [] Extremities: No tenderness, no cyanosis, no clubbing, ROM intact, bilateral ankle edema. No psoas sign Neurologic: Alert and oriented X 3, moves all extremities on request, does have distal sensory, no focal deficits noted. [] Psychologic: Affect anxious, judgement normal, mood appears somewhat depressed. Current Patient Data: Vital Signs: Vital Signs Date Time Temp Pulse Resp B/P (MAP) Pulse Ox O2 Delivery O2 Flow Rate FiO2 11/12/19 19:21 98.6 113 16 169/118 (135) 96 Room Air EKG: EKG: My interpretation EKG shows a sinus tachycardia 103 bpm. Left axis deviation. No findings acute STEMI of contralateral changes. [] Radiology/Procedures: Radiology/Procedures: [[address] [address] IMAGING REPORT Signed PATIENT: BETH LERNER ACCOUNT: [id number] : 1970 LOCATION: ER AGE: 48 SEX: F EXAM STATUS: REG ER ORD. PHYSICIAN: MENDEZ VALDOVINOS MD REASON: Abd pain,hematuria.HX appendectomy,cholecystectomy,hysterectomy PROCEDURE: CT ABDOMEN PELVIS WO CONTRAST Exam: CT of abdomen and pelvis without contrast INDICATION: Abdominal pain, hematuria TECHNIQUE: Sequential axial images through the abdomen and pelvis obtained without IV contrast. Sagittal and coronal reformatted images were reconstructed from the axial data and reviewed. Comparisons: 10/05/2019 FINDINGS: Heart size is normal. No pericardial effusion. Visualized lung bases are clear. No pleural effusion. Evaluation of solid organs is limited secondary to noncontrast technique. There is diffuse hepatic steatosis. Spleen, pancreas and adrenals are unremarkable. Gallbladder surgically absent. No perinephric inflammation or hydronephrosis. No renal or ureteral calculi are identified. Bladder is distended and appears thin-walled. Uterus is absent. No abnormal adnexal mass. Large and small bowel are unremarkable. Appendix is not identified. No free abdominal air or fluid. No obstruction. Abdominal aorta has a normal course and caliber. No enlarged abdominal lymph nodes are identified. No suspicious osseous lesions or acute fractures. Chronic right acetabular fracture is again noted. IMPRESSION: 1. No renal or ureteral calculi. No evidence for obstructive uropathy. 2. Diffuse hepatic steatosis. Exposure: One or more of the following in the visualized dose reduction techniques were utilized for this examination: 1. Automated exposure control 2. Adjustment of the MA and/or KV according to patient size 3. Use of iterative of reconstructive technique Electronically signed by: Anna Griffin MD (11/12/2019 10:16 PM) [id number] DICTATED AND SIGNED BY: ANNA GRIFFIN MD DATE: 11/12/192215 CC: MENDEZ VALDOVINOS MD; PCP,UNKNOWN ~ [place] [address] IMAGING REPORT Signed PATIENT: BETH LERNER ACCOUNT: [id number] : 1970 LOCATION: ER AGE: 48 SEX: F EXAM STATUS: REG ER ORD. PHYSICIAN: MENDEZ VALDOVINOS MD REASON: Abd pain,hematuria.HX appendectomy,cholecystectomy,hysterectomy PROCEDURE: CT ABDOMEN PELVIS WO CONTRAST Exam: CT of abdomen and pelvis without contrast INDICATION: Abdominal pain, hematuria TECHNIQUE: Sequential axial images through the abdomen and pelvis obtained without IV contrast. Sagittal and coronal reformatted images were reconstructed from the axial data and reviewed. Comparisons: 10/05/2019 FINDINGS: Heart size is normal. No pericardial effusion. Visualized lung bases are clear. No pleural effusion. Evaluation of solid organs is limited secondary to noncontrast technique. There is diffuse hepatic steatosis. Spleen, pancreas and adrenals are unremarkable. Gallbladder surgically absent. No perinephric inflammation or hydronephrosis. No renal or ureteral calculi are identified. Bladder is distended and appears thin-walled. Uterus is absent. No abnormal adnexal mass. Large and small bowel are unremarkable. Appendix is not identified. No free abdominal air or fluid. No obstruction. Abdominal aorta has a normal course and caliber. No enlarged abdominal lymph nodes are identified. No suspicious osseous lesions or acute fractures. Chronic right acetabular fracture is again noted. IMPRESSION: 1. No renal or ureteral calculi. No evidence for obstructive uropathy. 2. Diffuse hepatic steatosis. Exposure: One or more of the following in the visualized dose reduction techniques were utilized for this examination: 1. Automated exposure control 2. Adjustment of the MA and/or KV according to patient size 3. Use of iterative of reconstructive technique Electronically signed by: Anna Griffin MD (11/12/2019 10:16 PM) [id number] DICTATED AND SIGNED BY: ANNA GRIFFIN MD DATE: 11/12/192215 CC: MENDEZ VALDOVINOS MD; PCP,UNKNOWN ~ ][place] [address] IMAGING REPORT Signed PATIENT: BETH LERNER ACCOUNT: [id number] : 1970 LOCATION: ER AGE: 48 SEX: F EXAM STATUS: REG ER ORD. PHYSICIAN: MENDEZ VALDOVINOS MD REASON: ABD PAIN.HX HYSTERECTOMY, APPENDECTOMY, CHOLECYSTECTOMY PROCEDURE: ACUTE ABDOMEN SERIES Exam: Acute abdominal series INDICATION: Abdominal pain, hysterectomy TECHNIQUE: Frontal view of the chest with upright and supine views of the abdomen Comparisons: None FINDINGS: The cardiomediastinal silhouette and pulmonary vessels are within normal limits. The lung and pleural spaces are clear. Air and stool are noted throughout the colon to level the rectum in a nonobstructive bowel gas pattern. No suspicious masses or calcifications. Visualized osseous structures are unremarkable. IMPRESSION: 1. No acute cardiopulmonary process. 2. Nonobstructive bowel gas pattern. Electronically signed by: Anna Griffin MD (11/12/2019 8:15 PM) [id number] DICTATED AND SIGNED BY: ANNA GRIFFIN MD DATE: 11/12/192014 CC: MENDEZ VALDOVINOS MD; PCP,UNKNOWN ~ Course & Med Decision Making: Course & Med Decision Making Pertinent Labs and Imaging studies reviewed. (See chart for details) Pt. stay on clear fluid diet only x 48 hrs. No solids or milk products. Push fruit juices.. Avoid tobacco and marijuana. Re-exam in 24 hrs. if no improvement. Keep follow-up with colorectal surgeon Dr. Dodge. Take meds as directed. Must keep follow-ups.. Impression: 1.Abdomen Pain 2. Mild Hypokalemia 3.0 3. Anemia Hgb 9.7 4. Hematuria 5. Hx. Anxiety 6. Drug screen + MJ and Benzo's and narcotics 7. Hx. of Ulcerative Colitis 8. Exhibits drug seeking behaviors 9. Hematuria. [] Dragon Disclaimer: Dragon Disclaimer: This electronic medical record was generated, in whole or in part, using a voice recognition dictation system. Departure Departure: Disposition: 01 HOME/RESIDENCE PRIOR TO ADM Condition: STABLE Referrals: PCP,UNKNOWN (PCP) Justification of Admission: Justification of Admission: Justification of Admission Dx: N/A Dragon Disclaimer This chart was dictated in whole or in part using Voice Recognition software in a busy, high-work load, and often noisy Emergency Department environment. It may contain unintended and wholly unrecognized errors or omissions. MENDEZ VALDOVINOS MD Nov 12, 2019 19:59
--- NOTE | 2019-11-12 20:17 | RAD ---
Exam: Acute abdominal series INDICATION: Abdominal pain, hysterectomy TECHNIQUE: Frontal view of the chest with upright and supine views of the abdomen Comparisons: None FINDINGS: The cardiomediastinal silhouette and pulmonary vessels are within normal limits. The lung and pleural spaces are clear. Air and stool are noted throughout the colon to level the rectum in a nonobstructive bowel gas pattern. No suspicious masses or calcifications. Visualized osseous structures are unremarkable. IMPRESSION: 1. No acute cardiopulmonary process. 2. Nonobstructive bowel gas pattern. Electronically signed by: Anna Liu MD (11/12/2019 8:15 PM) [id number]
[2019-11-12] MEDS ORDERED: MORPHINE SULFATE 10 MG/ML SYRINGE. SQ ONE (20:45)
[2019-11-12 21:06] LABS: BASO % 0 % (0-3); EOS # 0.1 x10^3/uL (0.0-0.7); EOS % 2 % (0-3); HEMATOCRIT 30.5 % (36.0-47.0); HEMOGLOBIN 9.7 g/dL (12.0-15.5); LYMPH # 0.5 x10^3/uL (1.0-4.8); LYMPH % 9 % (24-48); MEAN CORPUSCULAR HEMOGLOBIN 26 pg (25-35); MEAN CORPUSCULAR HGB CONC 32 g/dL (31-37); MEAN CORPUSCULAR VOLUME 80 fL (79-100); MONO # 0.5 x10^3/uL (0.0-1.1); MONO % 8 % (0-9); NEUT # 4.4 x10^3uL (1.8-7.7); NEUT % 80 % (31-73); PLATELET COUNT 281 x10^3/uL (140-400); RED BLOOD COUNT 3.79 x10^6/uL (3.50-5.40); RED CELL DISTRIBUTION WIDTH 18.9 % (11.5-14.5); WHITE BLOOD COUNT 5.5 x10^3/uL (4.0-11.0)
[2019-11-12 21:09] LABS: BARBITURATES NEG (NEG); BENZODIAZEPINES POS (NEG); CANNABINOIDS POS (NEG); COCAINE NEG (NEG); METHADONE NEG (NEG); OPIATES POS (NEG); PHENCYCLIDINE NEG (NEG)
[2019-11-12 21:10] LABS: AMPHETAMINE/METHAMPHETAMINE NEG (NEG)
[2019-11-12 21:11] LABS: CALCIUM 8.9 mg/dL (8.5-10.1); CREATININE 0.9 mg/dL (0.6-1.0); GFR 66.3
[2019-11-12] MEDS ORDERED: POTASSIUM CHLORIDE 20 MEQ TABLET.ER. PO ONE (21:15)
[2019-11-12 21:17] LABS: BILIRUBIN,URINE NEG (NEG); CLARITY,URINE HAZY; COLOR,URINE YELLOW; GLUCOSE,URINE NEG (NEG); NITRITE,URINE NEG (NEG); UROBILINOGEN,URINE 0.2 mg/dL (0.2 mg/dL)
[2019-11-12 21:18] LABS: BACTERIA,URINE 0 /HPF (0-FEW); RBC,URINE >40 /HPF (0-2); SQUAMOUS EPITHELIAL CELL,UR FEW /LPF; WBC,URINE 0 /HPF (0-4)
[2019-11-12 21:19] LABS: ALBUMIN 3.5 g/dL (3.4-5.0); DIRECT BILIRUBIN 0.1 mg/dL (0.0-0.2); TOTAL BILIRUBIN 0.2 mg/dL (0.2-1.0); TOTAL PROTEIN 6.8 g/dL (6.4-8.2)
[2019-11-12 21:29] VITALS: BP 121/92
--- NOTE | 2019-11-12 22:09 | EKG ---
[facility] ED [facility] [place] [id number] Test Date: 2019-11-12 Test Time: 19:40:43 Pat Name: BETH LERNER Department: Room: Gender: F Design Transferrer: VIKRAM : 1970 Requested By: MENDEZ VALDOVINOS Order Number: [id number] Reading MD: Measurements Intervals [place] Rate: 103 P: 23 MT: 172 QRS: -10 QRSD: 86 T: 17 QT: 334 QTc: 439 Interpretive Statements SINUS TACHYCARDIA LEFTWARD AXIS R-S TRANSITION ZONE IN V LEADS DISPLACED TO THE LEFT NO SPECIFIC ECG ABNORMALITIES RI6.02 No previous ECG available for comparison
--- NOTE | 2019-11-12 22:19 | RAD ---
Exam: CT of abdomen and pelvis without contrast INDICATION: Abdominal pain, hematuria TECHNIQUE: Sequential axial images through the abdomen and pelvis obtained without IV contrast. Sagittal and coronal reformatted images were reconstructed from the axial data and reviewed. Comparisons: 10/05/2019 FINDINGS: Heart size is normal. No pericardial effusion. Visualized lung bases are clear. No pleural effusion. Evaluation of solid organs is limited secondary to noncontrast technique. There is diffuse hepatic steatosis. Spleen, pancreas and adrenals are unremarkable. Gallbladder surgically absent. No perinephric inflammation or hydronephrosis. No renal or ureteral calculi are identified. Bladder is distended and appears thin-walled. Uterus is absent. No abnormal adnexal mass. Large and small bowel are unremarkable. Appendix is not identified. No free abdominal air or fluid. No obstruction. Abdominal aorta has a normal course and caliber. No enlarged abdominal lymph nodes are identified. No suspicious osseous lesions or acute fractures. Chronic right acetabular fracture is again noted. IMPRESSION: 1. No renal or ureteral calculi. No evidence for obstructive uropathy. 2. Diffuse hepatic steatosis. Exposure: One or more of the following in the visualized dose reduction techniques were utilized for this examination: 1. Automated exposure control 2. Adjustment of the MA and/or KV according to patient size 3. Use of iterative of reconstructive technique Electronically signed by: Anna Liu MD (11/12/2019 10:16 PM) [id number]
[2019-11-12 22:50] LABS: % BANDS 1 % (0-9); % EOS 1 % (0-5); % LYMPHS 6 % (24-48); % METAS 1 % (0-0); % MONOS 5 % (0-10); % MYELOS 1 % (0-0); % SEGS 85 % (35-66)
[2019-11-12 22:51] LABS: PLT ESTIMATE ADEQUATE (ADEQUATE)
[2019-11-13] MEDS ORDERED: MORPHINE SULFATE 10 MG/ML SYRINGE. SQ ONE
[2019-11-13] MEDS ORDERED: methylPREDNISolone ACETATE 40 MG/ML VIAL. IM ONE
[2019-11-13] MEDS ORDERED: ONDA4TAB7 PO (18:47)
== END 2019-11-13 00:17 | disposition home or self-care (01) ==
LOC: ER 19:21
DX: R10.32 Left lower quadrant pain (principal); M25.532 Pain in left wrist; E87.6 Hypokalemia; D64.9 Anemia, unspecified; R31.9 Hematuria, unspecified; F41.9 Anxiety disorder, unspecified; F12.10 Cannabis abuse, uncomplicated; Z76.5 Malingerer [conscious simulation]; F19.10 Other psychoactive substance abuse, uncomplicated; F32.9 Major depressive disorder, single episode, unspecified; M79.7 Fibromyalgia; K21.9 Gastro-esophageal reflux disease without esophagitis; E78.00 Pure hypercholesterolemia, unspecified; I10 Essential (primary) hypertension; F17.210 Nicotine dependence, cigarettes, uncomplicated; Z87.442 Personal history of urinary calculi; Z90.49 Acquired absence of other specified parts of digestive tract; Z90.89 Acquired absence of other organs; Z90.710 Acquired absence of both cervix and uterus; Z88.1 Allergy status to other antibiotic agents; Z88.8 Allergy status to other drugs, medicaments and biological substances
CPT/HCPCS: 36415; 74022; 74176; 80048; 80076; 80307; 81001; 82150; 82550; 83690; 84484; 85007; 85025; 85610; 85730; 86140; 93005; 96361; 96372; 96374; 99285; J1030; J2270; J3490; J7120

== ENCOUNTER 2019-11-13 18:29 | Emergency (ER) | payer OTHER ==
[~2019-11-13] VITALS: Ht 162.6 cm; Wt 110.8 kg
[2019-11-13 18:30] VITALS: BP 157/114
[2019-11-13] MEDS ORDERED: ONDA4TAB7 PO (18:47)
--- NOTE | 2019-11-13 18:47 | PHYS DOC ---
Past History Past Medical History: Anemia, Anxiety, Depression, Fibromyalgia, GERD, High Cholesterol, Hypertension, Kidney Stones, Other Additional Past Medical Histor: ulcerative colitis, colon polyps Past Surgical History: Appendectomy, Cholecystectomy, Hysterectomy, Other Additional Past Surgical Histo: umbilical hernia repair Smoking: Cigarettes Alcohol Use: Rarely Drug Use: None General Adult EDM: Chief Complaint: ABDOMINAL PAIN HPI: HPI: Patient is a 48-year-old female who presented to ER today for evaluation of abdominal pain, nausea vomiting for the last 2 days. Patient was seen here last night for the same symptom, and extensive work-up included lab work and CT scan of her abdomen pelvic did not show any acute problem. Patient has been in and out many ERs around the area many times for the same chronic abdominal pain. Patient lives in [facility], but she came out here to be seen. I have seen this patient at several other hospitals that I worked in the area for the same complaint over the year. Patient denies any fever. Patient denies any chest pain, no trouble breathing. Review of Systems: Review of Systems: Constitutional: Denies fever or chills Eyes: Denies change in visual acuity HENT: Denies nasal congestion or sore throat Respiratory: Denies cough or shortness of breath Cardiovascular: Denies chest pain or edema GI: Positive for abdominal pain, nausea vomiting. : Denies dysuria Musculoskeletal: Denies back pain or joint pain Integument: Denies rash Neurologic: Denies headache, focal weakness or sensory changes Endocrine: Denies polyuria or polydipsia Lymphatic: Denies swollen glands Psychiatric: Denies depression or anxiety Heart Score: Risk Factors: Risk Factors: DM, Current or recent (<one month) smoker, HTN, HLP, family history of CAD, obesity. Risk Scores: Score 0 - 3: 2.5% MACE over next 6 weeks - Discharge Home Score 4 - 6: 20.3% MACE over next 6 weeks - Admit for Clinical Observation Score 7 - 10: 72.7% MACE over next 6 weeks - Early Invasive Strategies Allergies: Allergies: Allergies Coded Allergies Type Severity Reaction Last Updated Verified cephalexin Allergy Intermediate "ears burn/rash on neck" 11/12/19 Yes ketorolac Allergy Intermediate Hives 11/12/19 Yes prochlorperazine Allergy Intermediate 11/12/19 Yes Physical Exam: PE: Constitutional: Well developed, well nourished, no acute distress, non-toxic appearance. [] HENT: Normocephalic, atraumatic, bilateral external ears normal, oropharynx moist, no oral exudates, nose normal. [] Eyes: PERRLA, EOMI, conjunctiva normal, no discharge. [] Neck: Normal range of motion, no tenderness, supple, no stridor. [] Cardiovascular:Heart rate regular rhythm, no murmur [] Lungs & Thorax: Bilateral breath sounds clear to auscultation [] Abdomen: Bowel sounds normal, soft, there is tenderness to palpation in the lower abdominal area, no rebound, no guarding, no masses, no pulsatile masses. [] Skin: Warm, dry, no erythema, no rash. [] Back: No tenderness, no CVA tenderness. [] Extremities: No tenderness, no cyanosis, no clubbing, ROM intact, no edema. [] Neurologic: Alert and oriented X 3, normal motor function, normal sensory function, no focal deficits noted. [] Psychologic: Affect normal, judgement normal, mood normal. [] Current Patient Data: Vital Signs: Vital Signs Date Time Temp Pulse Resp B/P (MAP) Pulse Ox O2 Delivery O2 Flow Rate FiO2 11/13/19 18:29 98.2 104 20 157/114 (128) 98 Room Air EKG: EKG: [] Radiology/Procedures: Radiology/Procedures: [] Course & Med Decision Making: Course & Med Decision Making Pertinent Labs and Imaging studies reviewed. (See chart for details) Patient is a 48-year-old female who presented to ER today for chronic abdominal pain. Patient was just evaluated last night for the same symptom with lab work and CT scan of her abdomen pelvis. This physician had a long discussion with patient that she need to follow-up with her family doctor and a GI specialist for chronic abdominal pain. There is no further work-up needed at this time. Zacarias Disclaimer: Zacarias Disclaimer: This electronic medical record was generated, in whole or in part, using a voice recognition dictation system. Departure Departure: Impression: Primary Impression: Chronic abdominal pain Disposition: HOME/RESIDENCE PRIOR TO ADM Condition: STABLE Referrals: PCP,UNKNOWN (PCP) please follow up with your doctor for a referral to GI SPECIALIST Patient Instructions: Abdominal Pain, Chronic Pain Scripts Ondansetron Hcl (ZOFRAN) 4 Mg Tablet 1 TAB PO Q6HRS PRN for NAUSEA, #20 TAB Prov: VADIM MAE DO 11/13/19 Justification of Admission: Justification of Admission: Justification of Admission Dx: N/A VADIM MAE DO Nov 13, 2019 18:47
== END 2019-11-13 18:44 | disposition home or self-care (01) ==
LOC: ER 18:29
DX: G89.29 Other chronic pain (principal); R10.30 Lower abdominal pain, unspecified; R11.2 Nausea with vomiting, unspecified; F41.9 Anxiety disorder, unspecified; F32.9 Major depressive disorder, single episode, unspecified; M79.7 Fibromyalgia; K21.9 Gastro-esophageal reflux disease without esophagitis; E78.00 Pure hypercholesterolemia, unspecified; I10 Essential (primary) hypertension; F17.210 Nicotine dependence, cigarettes, uncomplicated; Z86.2 Personal history of diseases of the blood and blood-forming organs and certain disorders involving the immune mechanism; Z87.442 Personal history of urinary calculi; Z90.49 Acquired absence of other specified parts of digestive tract; Z90.89 Acquired absence of other organs; Z90.710 Acquired absence of both cervix and uterus; Z88.1 Allergy status to other antibiotic agents; Z88.8 Allergy status to other drugs, medicaments and biological substances
CPT/HCPCS: 99283

== ENCOUNTER 2019-12-05 17:08 | Emergency (ER) | payer OTHER ==
[~2019-12-05] VITALS: Ht 162.6 cm; Wt 110.8 kg
[~2019-12-05 17:08] MED LIST changes: +ONDA4TAB7 PO
[2019-12-05 17:21] VITALS: BP 157/106
--- NOTE | 2019-12-05 18:10 | PHYS DOC ---
Past History Past Medical History: Anemia, Anxiety, Depression, Fibromyalgia, GERD, High Cholesterol, Hypertension, Kidney Stones, Other Additional Past Medical Histor: ulcerative colitis, colon polyps Past Surgical History: Appendectomy, Cholecystectomy, Hysterectomy, Other Additional Past Surgical Histo: umbilical hernia repair Smoking: Cigarettes Alcohol Use: Occasionally Drug Use: None General Adult EDM: Chief Complaint: MEDICATION REFILL HPI: HPI: 49-year-old female past medical history of ulcerative colitis, presents the ED with complaints of acute on chronic left lower quadrant abdominal pain that is been waxing and waning for months. Patient states she has chronic scant hematochezia-nothing has change in the frequency or amount of GI bleeding. C/o chronic, cramping left lower quadrant abdominal pain with associated nausea. Patient states, " keep having problems with my ulcerative colitis and have tried everything at home." Patient reports no relief with sulfasalazine, mesalamine, Bentyl, hydrocodone, Zofran and Tylenol. History of anemia or blood transfusions. Patient states that she follows with Dr. Carcamo but is changing to a colorectal surgeon. Does not follow with any pain management. Her primary care physician is Panda Padilla at [facility]. Not on any anticoagulants. Patient reports " if I tell you what I want, you will label me." Patient reports she is hoping that she will receive IV fluids, 1 mg of Dilaudid and Phenergan. Review of Systems: Review of Systems: Constitutional: Denies fever or chills Eyes: Denies change in visual acuity HENT: Denies nasal congestion or sore throat Respiratory: Denies cough or shortness of breath or hemoptysis or exertional dyspnea Cardiovascular: Denies chest pain or syncope GI: Denies melena diarrhea : Denies dysuria, hematuria Musculoskeletal: Denies back pain or joint pain Integument: Denies rash Neurologic: Denies headache, focal weakness or sensory changes Endocrine: Denies polyuria or polydipsia Lymphatic: Denies swollen glands Psychiatric: Denies depression or anxiety Heart Score: Risk Factors: Risk Factors: DM, Current or recent (<one month) smoker, HTN, HLP, family history of CAD, obesity. Risk Scores: Score 0 - 3: 2.5% MACE over next 6 weeks - Discharge Home Score 4 - 6: 20.3% MACE over next 6 weeks - Admit for Clinical Observation Score 7 - 10: 72.7% MACE over next 6 weeks - Early Invasive Strategies Allergies: Allergies: Allergies Coded Allergies Type Severity Reaction Last Updated Verified cephalexin Allergy Intermediate "ears burn/rash on neck" 11/12/19 Yes ketorolac Allergy Intermediate Hives 11/12/19 Yes prochlorperazine Allergy Intermediate 11/12/19 Yes Physical Exam: PE: Constitutional: Well developed, well nourished, no acute distress, non-toxic appearance. [] HENT: Normocephalic, atraumatic, Eyes: EOMI, conjunctiva normal, Neck: Normal range of motion, supple, Cardiovascular:Heart rate regular rhythm, no murmur [] Lungs & Thorax: Bilateral breath sounds clear to auscultation [] Abdomen: soft, no tenderness, Skin: Warm, dry, no erythema, no rash. [] Back: No tenderness, Extremities: no clubbing, ROM intact, no edema. [] Neurologic: Alert and oriented X 3, normal motor function, normal sensory functi on, Psychologic: Affect normal, judgement normal, mood normal. [] Current Patient Data: Vital Signs: Vital Signs Date Time Temp Pulse Resp B/P (MAP) Pulse Ox O2 Delivery O2 Flow Rate FiO2 12/05/19 17:21 98.0 120 24 157/106 (123) 100 EKG: EKG: [] Radiology/Procedures: Radiology/Procedures: [] Course & Med Decision Making: Course & Med Decision Making Pertinent Labs and Imaging studies reviewed. (See chart for details) Patient presents to the ED with complaints of ulcerative colitis flareup requesting analgesia, antiemetics and IV fluids. I recommended that we start with IV Reglan, Tylenol IV fluids, and pursue CT imaging and labs to rule out life-threatening conditions such as GI bleed, symptomatic anemia, hemorrhage, sepsis, intra-abdominal infection versus many other causes. Patient adamantly refuses a CAT scan and tells me in I'm wasting her time. Patient then started to walk outside of the ED based on my recommendations to rule out life or limb threatening processes. I told patient was very concerned given her blood pressure and heart rate that something serious could be occurring. Patient had medical decision-making capacity despite my best efforts left the emergency department AGAINST MEDICAL ADVICE. Differential includes aortic dissection, aortic aneurysm, acute coronary syndrome, surgical abdomen (appendicitis, cholecystitis, ischemic bowel, strangulated hernia, etc), bowel obstruction or volvulus, bladder outlet obstruction, gastrointestinal bleeding, inflammatory bowel disease, peptic ulcer disease, sepsis, diverticular disease, ureterolithiasis, nephrolithiasis, ovarian torsion, ectopic , vaginal hemorrhage or infection The patient has decided to leave our facility against medical advice. I have assessed patient's ability to make informed decision and feel the patient has the capacity to comprehend information regarding the current medical condition and appreciates the impact of the disease or condition and the consequences of various options for treatment, including foregoing treatment. The patient possesses the ability to evaluate all treatment options, comparing the risks and benefits of each option, communicate his or her choice in a consistent manner over time, and is able to make rational choices. I explained to the patient further testing, treatment, and evaluation I would like to perform in the emergency department visit as well as any possible alternatives that can be accomplished in a timely manner. I have outlined the possible risks of foregoing any or all of these interventions and the patient understands and acknowledges that the decision to leave may result in undesirable consequences such as , permanent disability, and/or loss of current lifestyle. Even though leaving AMA is not ideal, I have instructed the patient to follow any discharge instructions given, take any medications prescribed, and resume care as soon as possible with another provider. This conversation was witnessed by another member of the emergency department staff and we clearly communicated the patient is welcome to return anytime to continue care at our facility. Zacarias Disclaimer: Zacarias Disclaimer: This electronic medical record was generated, in whole or in part, using a voice recognition dictation system. Departure Departure: Impression: Primary Impression: Abdominal pain Additional Impression: Ulcerative colitis, chronic Disposition: 07 AGAINST MEDICAL ADVICE Condition: STABLE Referrals: PCP,NO (PCP) Patient Instructions: Abdominal Pain, Ulcerative Colitis Additional Instructions: EMERGENCY DEPARTMENT GENERAL DISCHARGE INSTRUCTIONS Thank you for coming to [facility] Emergency Department (ED) today and trusting us with you care. We trust that you had a positivie experience in our Emergency Department. If you wish to speak to the department management, you may call the sirector at [phone]. YOUR FOLLOW UP INSTRUCTIONS ARE FOLLOWS: 1. Do you have a private Doctor? If you do not have a private doctir, please ask for a resource list of physicians or clinics that may be able to assist you with follow up care. 2. The Emergency Physicain has interpreted your x-rays. The X-Ray specialist will also review them. If there is a change in the findingd, you will be notified in 48 hours when at all possible. 3. A lab test or culture has been done, your results will be reviewed and you will be notified if you need a change in treatment. ADDITIONAL INSTRUCTIONS AND INFORMATION: 1. Your care today has been supervised by a physician who is specially trained in emergency care. Many problems require more than one evaluation for a complete diagnosis and treatment. We recommend that you schedule your follow up appointment as recommended to ensure complete treatment of you illness or injury. If you are unable to obtain follow up care and continue to have a problem, or if your consition worsens, we recommend that you return to the ED. 2. We are not able to safelymdetermine your condition over the phone nor are we able to give sound medical advice over the phone. For these safety reasons, if you call for medical advice we will ask you to come to the ED for further evaluation. 3. If you have any questions regarding these discharge instructions please call the ED at [phone]. SAFETY INFORMATION: In the interest of safety, wellness, and injury prevention; we encourage you to wear your sealbelt, if you smoke; quite smoking, and we encourage family to use a protective helmet for bicycling and other sporting events that present an increased risk for head injusry. IF YOUR SYMPTOMS WORSEN OR NEW SYMPTOMS DEVELOP, OR YOU HAVE CONCERNS ABOUT YOUR CONDITION; OR IF YOUR CONDITION WORSENS WHILE YOU ARE WAITING FOR YOUR FOLLOW UP APPOINTMENT; EITHER CONTACT YOUR PRIMARY CARE DOCTOR, THE PHYSICIAN WHOSE NAME AND NUMBER YOU WERE GIVEN, OR RETURN TO THE ED IMMEDIATELY. Justification of Admission: Justification of Admission: Justification of Admission Dx: N/A SANA RODRIGUEZ DO Dec 05, 2019 18:10
== END 2019-12-05 17:59 | disposition left against medical advice (07) ==
LOC: ER 17:08
DX: K51.90 Ulcerative colitis, unspecified, without complications (principal); F41.9 Anxiety disorder, unspecified; F32.9 Major depressive disorder, single episode, unspecified; M79.7 Fibromyalgia; K21.9 Gastro-esophageal reflux disease without esophagitis; E78.00 Pure hypercholesterolemia, unspecified; I10 Essential (primary) hypertension; F17.210 Nicotine dependence, cigarettes, uncomplicated; Z86.2 Personal history of diseases of the blood and blood-forming organs and certain disorders involving the immune mechanism; Z87.442 Personal history of urinary calculi; Z90.49 Acquired absence of other specified parts of digestive tract; Z90.89 Acquired absence of other organs; Z90.710 Acquired absence of both cervix and uterus; Z88.1 Allergy status to other antibiotic agents; Z88.8 Allergy status to other drugs, medicaments and biological substances
CPT/HCPCS: 99281

== ENCOUNTER 2019-12-10 11:29 | Emergency (ER) | payer OTHER ==
[~2019-12-10] VITALS: Ht 162.6 cm; Wt 110.8 kg
[2019-12-10 11:29] VITALS: BP 181/98
--- NOTE | 2019-12-10 11:53 | PHYS DOC ---
Past History Past Medical History: Anemia, Anxiety, Depression, Fibromyalgia, GERD, High Cholesterol, Hypertension, Kidney Stones, Other Additional Past Medical Histor: ulcerative colitis, colon polyps Past Surgical History: Appendectomy, Cholecystectomy, Hysterectomy, Other Additional Past Surgical Histo: umbilical hernia repair Smoking: Cigarettes Alcohol Use: Occasionally Drug Use: None General Adult EDM: Chief Complaint: ABDOMINAL PAIN HPI: HPI: The history was obtained from the patient. Patient is a 49-year-old female with PMH ulcerative colitis with multiple abdominal surgeries including appendectomy, cholecystectomy, colectomy who presents with a chief complaint of left lower quadrant abdominal pain. Patient states that this episode began approximately 6 hours prior to arrival. States the pain is intermittent in nature. States she has had this pain intermittently for months to years. She notes she has tried home hydrocodone and Zofran with minimal relief. She notes nausea without vomiting. She states she has an appointment with a colorectal surgeon tomorrow morning at [facility]. She states that she has had loose stool associated with her discomfort. She states she does not follow with pain management. States her family physician is Panda Padilla at [facility] [place]. She does not take any blood thinners. She states she is also tried sulfa zine, mesalamine, Bentyl and Tylenol as well. Denies syncope. Denies urinary symptoms. No other complaints. Review of Systems: Review of Systems: Constitutional: Denies fever or chills Eyes: Denies change in visual acuity HENT: Denies nasal congestion or sore throat Respiratory: Denies cough or shortness of breath Cardiovascular: Denies chest pain or edema GI: Positive for abdominal pain and nausea and diarrhea : Denies dysuria Musculoskeletal: Denies back pain or joint pain Integument: Denies rash Neurologic: Denies headache, focal weakness or sensory changes Endocrine: Denies polyuria or polydipsia Lymphatic: Denies swollen glands Psychiatric: Denies depression or anxiety Heart Score: Risk Factors: Risk Factors: DM, Current or recent (<one month) smoker, HTN, HLP, family history of CAD, obesity. Risk Scores: Score 0 - 3: 2.5% MACE over next 6 weeks - Discharge Home Score 4 - 6: 20.3% MACE over next 6 weeks - Admit for Clinical Observation Score 7 - 10: 72.7% MACE over next 6 weeks - Early Invasive Strategies Allergies: Allergies: Allergies Coded Allergies Type Severity Reaction Last Updated Verified cephalexin Allergy Intermediate "ears burn/rash on neck" 11/12/19 Yes ketorolac Allergy Intermediate Hives 11/12/19 Yes prochlorperazine Allergy Intermediate 11/12/19 Yes Physical Exam: PE: Constitutional: Well developed, well nourished, no acute distress, non-toxic appearance. [] HENT: Normocephalic, atraumatic, bilateral external ears normal, oropharynx moist, no oral exudates, nose normal. [] Eyes: PERRLA, EOMI, conjunctiva normal, no discharge. [] Neck: Normal range of motion, no tenderness, supple, no stridor. [] Cardiovascular:Heart rate regular rhythm, no murmur [] Lungs & Thorax: Bilateral breath sounds clear to auscultation [] Abdomen: Soft, nontender, nonacute abdomen. No involuntary guarding or rigidity noted. No acute peritonitis. Skin: Warm, dry, no erythema, no rash. [] Back: No tenderness, no CVA tenderness. [] Extremities: No tenderness, no cyanosis, no clubbing, ROM intact, no edema. [] Neurologic: Alert and oriented X 3, normal motor function, normal sensory function, no focal deficits noted. [] Psychologic: Affect normal, judgement normal, mood normal. [] EKG: EKG: [] Radiology/Procedures: Radiology/Procedures: [] Course & Med Decision Making: Course & Med Decision Making Pertinent Labs and Imaging studies reviewed. (See chart for details) [] Patient is a 49-year-old female who presents with chief complaint of acute on chronic left lower quadrant abdominal discomfort. Initial vital signs notable for mild tachycardia. Extensive chart review was performed. Patient does have several visits for similar complaints. Multiple CT scans have been obtained without identifiable pathology. Furthermore, multiple providers mention concern for drug-seeking behavior. Based on the patient's multiple visits I did ex plain to her that I felt initial laboratory analysis was indicated. I specified that based on this laboratory Naus this we could consider obtaining CAT scan imaging if indicated. I also explained the patient that I be happy to treat her symptoms starting with [id number] medications. Patient was initially agreeable to this. However after I left the exam room nursing notified the patient was electing to leave. I did explain to the patient that I cannot fully exclude life or limb threatening illness without laboratory analysis and potential imaging. She does appear to have capacity at this time. She is alert and oriented x3. She does appear to have a basic understanding of her health care needs and potential consequences. At this time she is electing leave AGAINST MEDICAL ADVICE. I encouraged her to report back to the emergency department at any time should he want reevaluated. Instructed to follow-up with her colorectal surgeon in the morning. Zacarias Disclaimer: Zacarias Disclaimer: This electronic medical record was generated, in whole or in part, using a voice recognition dictation system. Departure Departure: Impression: Primary Impression: Chronic abdominal pain Disposition: AGAINST MEDICAL ADVICE Condition: STABLE Referrals: PCP,NO (PCP) Additional Instructions: Please follow-up with your colorectal surgeon tomorrow morning. Discharge Abdominal Pain Re-Check Precautions: I'm unsure of the specific cause of your abdominal pain. However, at this point I feel that you are low risk for a life threatening emergency and that discharge from the Emergency Department is safe. There is a very small possibility that you are just too early in your clinical course for our physical exam/labs/imaging to ascertain whether or not you have an emergent condition that could potentially cause permanent disability or be life threatening. As such, it is very important that you follow up with your primary doctor or return to the Emergency Department in 12-24 hours for re-assessment and further evaluation if clinically indicated. If you develop new or worsening symptoms then you should return to the Emergency Department immediately. Home Care Instructions: Abdominal Pain Many things may cause abdominal pain. Your ER visit might not show the exact reason you are having pain. In some cases, additional time is needed to determine if the cause is serious. Therefore you may be told to go home and watch for any changes or worsening in your condition. Before that, we may not know if you need more testing, or if hospitalization or surgery is necessary. If its not something serious, the pain may go away without treatment or get better with simple things like avoiding certain foods or medications. In the ER, your doctor asks you questions, examines you and in some cases, may order tests. These help doctors decide if the pain is from something serious. Tests are not always done and may not provide a definite answer. There can still be a problem, even with normal test results. Abdominal pain may be caused by something serious (like appendicitis), which is not obvious right away. Because of this, another checkup is needed to make sure you are OK. It is VERY IMPORTANT to follow up for a repeat exam, especially if you have any symptoms that are not going away or are getting worse. We recommend that you RETURN TO THE EMERGENCY ROOM IN 8-12 HOURS to be rechecked. If you cannot, you may follow up with your primary care doctor or clinic. It is important that you follow all of the instructions below. RETURN TO THE EMERGENCY ROOM IMMEDIATELY IF: The pain does not go away or gets worse. You have a fever. You keep throwing up and cannot keep anything down. You pass bloody or black stools. You develop new symptoms. HOME CARE INSTRUCTIONS Come back to the ER (or see your doctor) in 8-12 hours. DO NOT take laxatives unless directed by your doctor. Avoid the use of alcohol Take pain medicine only as directed by your doctor. Only take [id number] or prescription medicine as directed by your doctor. Try a clear liquid diet (broth, tea, jello, water) for the next 12-24 hours. Slowly move to a bland diet as tolerated. Do not eat greasy, fatty or spicy foods. Once you start getting better, go back to a normal, healthy diet, slowly over a few days. DISCHARGE PT INSTRUCTIONS: YOU HAVE BEEN EVALUATED FOR ABDOMINAL PAIN. HOWEVER, WE ARE UNABLE TO PROVIDE A DEFINITE CAUSE OF YOUR SYMPTOMS. EVEN THOUGH YOUR TESTS MAY HAVE BEEN NORMAL, YOU STILL COULD HAVE A SERIOUS CAUSE FOR YOUR ABDOMINAL PAIN, INCLUDING APPENDICITIS. THE BEST TEST TO DETERMINE IF YOU HAVE A SERIOUS CAUSE IS RE-EXAMINATION OVER TIME. WE USED TO ADMIT PATIENTS TO THE HOSPITAL FOR THIS, BUT CAN NOW ALLOW YOU TO GO HOME, & RETURN TO OUR ER THE NEXT DAY FOR RE- EXAMINATION. THUS, WE WOULD LIKE YOU TO RETURN TO OUR ER TOMORROW FOR YOUR RE- EVALUATION. (IF YOUR SYMPTOMS HAVE GONE AWAY, THEN YOU DO NOT NEED TO RETURN.) IF YOUR SYMPTOMS GET WORSE BETWEEN NOW & THEN, YOU SHOULD RETURN IMMEDIATELY & NOT WAIT UNTIL TOMORROW. SYMPTOMS TO LOOK FOR WORSENING PAIN, HIGH FEVER, PERSISTENT VOMITING [NOT CONTROLLED BY MEDICINE], AND/OR OVERALL WORSENING OF YOUR CONDITION. Justification of Admission: Justification of Admission: Justification of Admission Dx: N/A HALEIGH HUDSON DO Dec 10, 2019 11:52
== END 2019-12-10 11:47 | disposition left against medical advice (07) ==
LOC: ER 11:29
DX: G89.29 Other chronic pain (principal); R10.32 Left lower quadrant pain; R19.7 Diarrhea, unspecified; M79.7 Fibromyalgia; K21.9 Gastro-esophageal reflux disease without esophagitis; E78.00 Pure hypercholesterolemia, unspecified; I10 Essential (primary) hypertension; Z87.442 Personal history of urinary calculi; F17.210 Nicotine dependence, cigarettes, uncomplicated; Z90.89 Acquired absence of other organs; Z90.49 Acquired absence of other specified parts of digestive tract; Z90.710 Acquired absence of both cervix and uterus; Z86.2 Personal history of diseases of the blood and blood-forming organs and certain disorders involving the immune mechanism; Z88.1 Allergy status to other antibiotic agents; Z88.8 Allergy status to other drugs, medicaments and biological substances
CPT/HCPCS: 99281

== ENCOUNTER 2020-04-05 18:44 | Emergency (ER) | payer BC, OTHER ==
[~2020-04-05] VITALS: Ht 162.6 cm; Wt 104.5 kg
[~2020-04-05 18:44] MED LIST changes: -MESA10003 RC; +MIRT-37 PO; -MIRT15TA PO; +[UNRECOGNIZED DRUG - CODE] RC
--- NOTE | 2020-04-05 19:32 | RAD ---
Single view chest dated 04/05/2020. No comparison available. Clinical data indication: Sternal pain. FINDINGS: Single upright portable exam performed. Heart and mediastinal contours are within normal limits. Lung s are hypoinflated but otherwise clear. No consolidation or pleural effusion. No pneumothorax. IMPRESSION: No acute radiographic abnormality. Electronically signed by: Sebas Clarke MD (04/05/2020 7:30 PM) [id number]
[2020-04-05] MEDS: MORPHINE SULFATE 10 MG/ML SYRINGE. SQ ONE (19:47)
--- NOTE | 2020-04-05 19:48 | RAD ---
Exam: CT of chest without contrast INDICATION: Chest pain TECHNIQUE: Sequential axial images through the chest obtained without IV contrast. Sagittal and coron al reformatted images were reconstructed from the axial data and reviewed. Comparisons: None FINDINGS: Visualized portions of the thyroid are unremarkable. No enlarged mediastinal lymph nodes. Heart size is normal. No pericardial effusion. Mild coronary artery calcium lesions. Thoracic aorta h as a normal course and caliber. Pulmonary artery is not enlarged. Airways are patent. No consolidation or pneumothorax. No suspicious lung nodules. Tree-in-bud nodular ity noted in the anterior right upper lobe. No pleural effusion or thickening. Visualized upper abdomen is unremarkable. No suspicious osseous lesions or acute fractures. IMPRESSION: Mild tree-in-bud nodularity in the right upper lobe may be infectious or inflammatory in etiology. Exposure: One or more of the following in the visualized dose reduction techniques were utilized for this examination: 1. Automated exposure control 2. Adjustment of the MA and/or KV according to patient size 3. Use of iterative of reconstructive technique Electronically signed by: Anna Liu MD (04/05/2020 7:45 PM) [facility]
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
[2020-04-05] MEDS ORDERED: AZIT250T6 PO ×2 (20:40→22:15)
--- NOTE | 2020-04-05 21:15 | EKG ---
[address] [address] Test Date: 2020-04-05 Test Time: 21:08:38 Pat Name: BETH LERNER Department: Room: Gender: F Sign Builder: : [id number] Requested By: EDUIN GARCIA Order Number: [id number] Reading MD: Measurements Intervals [place] Rate: 107 P: 35 VA: 166 QRS: -6 QRSD: 82 T: 16 QT: 330 QTc: 446 Interpretive Statements SINUS TACHYCARDIA LEFTWARD AXIS R-S TRANSITION ZONE IN V LEADS DISPLACED TO THE LEFT OTHERWISE NORMAL ECG RI6.02 No previous ECG available for comparison
[2020-04-05 22:00] VITALS: BP 144/98
== END 2020-04-05 22:20 | disposition home or self-care (01) ==
LOC: ER 18:44
DX: G89.18 Other acute postprocedural pain (principal); R07.2 Precordial pain; M79.7 Fibromyalgia; K21.9 Gastro-esophageal reflux disease without esophagitis; E78.00 Pure hypercholesterolemia, unspecified; I10 Essential (primary) hypertension; F41.9 Anxiety disorder, unspecified; F32.9 Major depressive disorder, single episode, unspecified; F17.210 Nicotine dependence, cigarettes, uncomplicated; Z86.2 Personal history of diseases of the blood and blood-forming organs and certain disorders involving the immune mechanism; Z87.442 Personal history of urinary calculi; Z90.49 Acquired absence of other specified parts of digestive tract; Z90.89 Acquired absence of other organs; Z90.710 Acquired absence of both cervix and uterus; Z88.1 Allergy status to other antibiotic agents; Z88.8 Allergy status to other drugs, medicaments and biological substances
CPT/HCPCS: 36415; 71045; 71250; 84484; 93005; 96372; 99285; J2270

== ENCOUNTER 2020-04-08 14:42 | Emergency (ER) | payer BC ==
[~2020-04-08] VITALS: Ht 162.6 cm; Wt 102.0 kg
[~2020-04-08 14:42] MED LIST changes: +AZIT250T6 PO
[2020-04-08 14:52] VITALS: BP 131/88
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
--- NOTE | 2020-04-08 15:24 | EKG ---
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
== END 2020-04-08 15:10 | disposition left against medical advice (07) ==
LOC: ER 14:42
DX: R07.89 Other chest pain (principal); F41.9 Anxiety disorder, unspecified; F32.9 Major depressive disorder, single episode, unspecified; M79.7 Fibromyalgia; K21.9 Gastro-esophageal reflux disease without esophagitis; E78.00 Pure hypercholesterolemia, unspecified; I10 Essential (primary) hypertension; F17.210 Nicotine dependence, cigarettes, uncomplicated; Z86.2 Personal history of diseases of the blood and blood-forming organs and certain disorders involving the immune mechanism; Z87.442 Personal history of urinary calculi; Z88.1 Allergy status to other antibiotic agents; Z88.8 Allergy status to other drugs, medicaments and biological substances
CPT/HCPCS: 93005; 99283

== ENCOUNTER 2020-05-04 19:34 | Emergency (ER) | payer BC, OTHER ==
[~2020-05-04] VITALS: Ht 162.6 cm; Wt 106.0 kg
--- NOTE | 2020-05-04 20:22 | PHYS DOC ---
Past History Past Medical History: Anemia, Anxiety, Depression, Fibromyalgia, GERD, High Cholesterol, Hypertension, Kidney Stones, Other Additional Past Medical Histor: ulcerative colitis, colon polyps Past Surgical History: Appendectomy, Cholecystectomy, Hysterectomy, Other Additional Past Surgical Histo: umbilical hernia repair Smoking: Cigarettes Alcohol Use: Occasionally Drug Use: None General Adult EDM: Chief Complaint: ABDOMINAL PAIN HPI: HPI: Patient is a 49-year old female who presents with lower abdominal pain that radiates to left flank. Patient reports nausea and vomiting. Pain started at 2 PM today and has continued to get worse. Patient reports taking 2 hydrocodone prior to coming in to the emergency room. Describes pain as sharp, stabbing, constant. Patient denies fevers or recent illness. Review of Systems: Review of Systems: Constitutional: Denies fever or chills Eyes: Denies change in visual acuity HENT: Denies nasal congestion or sore throat Respiratory: Denies cough or shortness of breath Cardiovascular: Denies chest pain or edema GI: Reports abdominal pain, nausea, denies vomiting, bloody stools or diarrhea : Denies dysuria Musculoskeletal: Denies back pain or joint pain Integument: Denies rash Neurologic: Denies headache, focal weakness or sensory changes Endocrine: Denies polyuria or polydipsia Lymphatic: Denies swollen glands Psychiatric: Denies depression or anxiety Allergies: Allergies: Allergies Coded Allergies Type Severity Reaction Last Updated Verified cephalexin Allergy Intermediate "ears burn/rash on neck" 04/08/20 Yes ketorolac Allergy Intermediate Hives 04/08/20 Yes prochlorperazine Allergy Intermediate 04/08/20 Yes Physical Exam: PE: Constitutional: Well developed, well nourished, no acute distress, non-toxic appearance. [] HENT: Normocephalic, atraumatic, bilateral external ears normal, oropharynx moist, no oral exudates, nose normal. [] Eyes: PERRLA, EOMI, conjunctiva normal, no discharge. [] Neck: Normal range of motion, no tenderness, supple, no stridor. [] Cardiovascular:Heart rate regular rhythm, no murmur [] Lungs & Thorax: Bilateral breath sounds clear to auscultation [] Abdomen: Bowel sounds normal, soft, lower abdominal tenderness, no masses, no pulsatile masses. [] Skin: Warm, dry, no erythema, no rash. [] Back: No tenderness, left-sided CVA tenderness. [] Extremities: No tenderness, no cyanosis, no clubbing, ROM intact, no edema. [] Neurologic: Alert and oriented X 3, normal motor function, normal sensory function, no focal deficits noted. [] Psychologic: Affect normal, judgement normal, mood normal. [] Current Patient Data: Vital Signs: Vital Signs Date Time Temp Pulse Resp B/P (MAP) Pulse Ox O2 Delivery O2 Flow Rate FiO2 05/04/20 19:40 98.4 120 20 147/99 (115) 97 EKG: EKG: Sinus tachycardia. Heart rate [address] Medina 2009 [] Radiology/Procedures: Radiology/Procedures: []XR CHEST 1V History: Reason: Short of air, abdomen pain / Spl. Instructions: / History: Comparison: April 05, 2020 Findings: Patchy bibasilar opacities. No pleural effusion. No pneumothorax. Normal heart size. Postoperative changes median sternotomy. Impression: 1. Patchy bibasilar opacities, likely atelectasis. Electronically signed by: Misael Franklin DO (05/04/2020 8:34 PM) [facility] PQ[facility] Compliance Statement: One or more of the following individualized dose reduction techniques were utilized for this examination: 1. Automated exposure control 2. Adjustment of the mA and/or kV according to patient size 3. Use of iterative reconstruction technique CT ABDOMEN+PELVIS WO Clinical Indication: Reason: left flank and abdomen pain / Spl. Instructions: / History: Comparison: CT abdomen and pelvis without contrast, October 20162019. TECHNIQUE: Helical CT imaging of the soft tissues of the neck is performed after 70 cc of Isovue 370 IV contrast. Findings: Evaluation of solid organs and bowel is limited without oral and IV contrast, decreasing sensitivity for detection of pathology. Stable 3 mm nodule in the left lower lobe, image 15. There are a few subcentimeter groundglass nodules in the right lower lobe that are probably i nfectious/inflammatory, image 12. Lung bases are otherwise clear. Cardiac size normal. Cholecystectomy. Probable normal variant Aviva lobe. The liver is homogeneous. Spleen, pancreas, adrenal glands, and abdominal aorta are normal. There is no renal, ureteral, or bladder calculus. There is no perinephric straining or hydronephrosis. Stomach is distended with heterogeneous material, otherwise normal. Small fat- containing periumbilical hernia is unchanged. Appendectomy. No dilated small bowel. There is moderate colon stool volume. No colon wall thickening. There are a few diverticula of the sigmoid colon. There is no abdominal adenopathy or free fluid. The urinary bladder is normal. Hysterectomy. No pelvic free fluid. There is old partially united fracture of the right acetabulum. IMPRESSION: 1. No acute abdominal or pelvic abnormality. No obstructive uropathy. 2. There are a few subcentimeter groundglass nodules in the right lower lobe that are probably infectious/inflammatory. 3. Minimal sigmoid colon diverticulosis. Electronically signed by: Gurpreet Parr MD (05/04/2020 8:45 PM) [facility] Heart Score: Risk Factors: Risk Factors: DM, Current or recent (<one month) smoker, HTN, HLP, family history of CAD, obesity. Risk Scores: Score 0 - 3: 2.5% MACE over next 6 weeks - Discharge Home Score 4 - 6: 20.3% MACE over next 6 weeks - Admit for Clinical Observation Score 7 - 10: 72.7% MACE over next 6 weeks - Early Invasive Strategies Course & Med Decision Making: Course & Med Decision Making Pertinent Labs and Imaging studies reviewed. (See chart for details) [] Patient is a 49-year old female who presents with lower abdominal pain that radiates to left flank. Patient reports nausea and vomiting. Pain started at 2 PM today and has continued to get worse. Patient reports taking 2 hydrocodone prior to coming in to the emergency room. Describes pain as sharp, stabbing, constant. Patient denies fevers or recent illness. UA, CBC, CMP, CT abdomen pelvis ordered. Patient reports that she has a history of kidney stones. Patient displays drug-seeking behavior. Patient given Zofran for nausea. And IM morphine. UA is negative for infection. Labs are unchanged from prior visit. CT abdomen and pelvis negative for acute abnormalities. Chest x-ray is unchanged from previous visit. Dragon Disclaimer: DragCommProve Disclaimer: This electronic medical record was generated, in whole or in part, using a voice recognition dictation system. Departure Departure: Impression: Primary Impression: Chronic abdominal pain Disposition: 01 DC HOME SELF CARE/HOMELESS Condition: STABLE Referrals: PCP,UNKNOWN (PCP) Patient Instructions: Abdominal Pain Additional Instructions: You were seen in the emergency room for abdominal pain and left-sided flank pain. You were given IM morphine and Zofran for nausea. Your CT of your abdomen and pelvis was negative for any acute abnormalities. You can take ibuprofen at home for discomfort. Please return to emergency room for worsening symptoms or concerns. Otherwise please follow-up with your PCP for further management of your chronic abdominal pain. EMERGENCY DEPARTMENT GENERAL DISCHARGE INSTRUCTIONS Thank you for coming to [facility] (ED) today and trusting us with you care. We trust that you had a positivie experience in our Emergency Department. If you wish to speak to the department management, you may call the director at [phone]. YOUR FOLLOW UP INSTRUCTIONS ARE FOLLOWS: 1. Do you have a private Doctor? If you do not have a private doctor, please ask for a resource list of physicians or clinics that may be able to assist you with follow up care. 2. The Emergency Physician has interpreted your x-rays. The X-Ray specialist will also review them. If there is a change in the findings, you will be notified in 48 hours when at all possible. 3. A lab test or culture has been done, your results will be reviewed and you will be notified if you need a change in treatment. ADDITIONAL INSTRUCTIONS AND INFORMATION: 1. Your care today has been supervised by a physician who is specially trained in emergency care. Many problems require more than one evaluation for a complete diagnosis and treatment. We recommend that you schedule your follow up appointment as recommended to ensure complete treatment of you illness or injury. If you are unable to obtain follow up care and continue to have a problem, or if your condition worsens, we recommend that you return to the ED. 2. We are not able to safely determine your condition over the phone nor are we able to give sound medical advice over the phone. For these safety reasons, if you call for medical advice we will ask you to come to the ED for further evaluation. 3. If you have any questions regarding these discharge instructions please call the ED at [phone]. SAFETY INFORMATION: In the interest of safety, wellness, and injury prevention; we encourage you to wear your sealbelt, if you smoke; quite smoking, and we encourage family to use a protective helmet for bicycling and other sporting events that present an increased risk for head injury. IF YOUR SYMPTOMS WORSEN OR NEW SYMPTOMS DEVELOP, OR YOU HAVE CONCERNS ABOUT YOUR CONDITION; OR IF YOUR CONDITION WORSENS WHILE YOU ARE WAITING FOR YOUR FOLLOW UP APPOINTMENT; EITHER CONTACT YOUR PRIMARY CARE DOCTOR, THE PHYSICIAN WHOSE NAME AND NUMBER YOU WERE GIVEN, OR RETURN TO THE ED IMMEDIATELY. Scripts Ondansetron Hcl (ZOFRAN) 4 Mg Tablet 4 MG PO TID PRN PRN for NAUSEA, #9 TAB Prov: EDUIN GARCIA APRN 05/04/20 EDUIN GARCIA APRN May 04, 2020 20:22
[2020-05-04] MEDS ORDERED: MORPHINE SULFATE 4 MG/ML DISP.SYRIN. IV ONE (20:30)
[2020-05-04] MEDS ORDERED: MORPHINE SULFATE 4 MG/ML DISP.SYRIN. IM ONE (20:30)
[2020-05-04] MEDS ORDERED: ONDANSETRON PF 4 MG/2 ML VIAL. IVP ONE (20:30)
--- NOTE | 2020-05-04 20:36 | RAD ---
XR CHEST 1V History: Reason: Short of air, abdomen pain / Spl. Instructions: / History: Comparison: April 05, 2020 Findings: Patchy bibasilar opacities. No pleural effusion. No pneumothorax. Normal heart size. Postoperative ch anges median sternotomy. Impression: 1. Patchy bibasilar opacities, likely atelectasis. Electronically signed by: Misael Franklin DO (05/04/2020 8:34 PM) [facility]
--- NOTE | 2020-05-04 20:48 | RAD ---
PQRS Compliance Statement: One or more of the following individualized dose reduction techniques were utilized for this examinat ion: 1. Automated exposure control 2. Adjustment of the mA and/or kV according to patient size 3. Use of iterative reconstruction technique CT ABDOMEN+PELVIS WO Clinical Indication: Reason: left flank and abdomen pain / Spl. Instructions: / History: Comparison: CT abdomen and pelvis without contrast, October 2016, 2019. TECHNIQUE: Helical CT imaging of the soft tissues of the neck is performed after 70 cc of Isovue 370 IV contrast. Findings: Evaluation of solid organs and bowel is limited without oral and IV contrast, decreasing sensitivity for detection of pathology. Stable 3 mm nodule in the left lower lobe, image 15. There are a few subcentimeter groundglass nodule s in the right lower lobe that are probably infectious/inflammatory, image 12. Lung bases are otherwi se clear. Cardiac size normal. Cholecystectomy. Probable normal variant Aviva lobe. The liver is homogeneous. Spleen, pancreas, adr enal glands, and abdominal aorta are normal. There is no renal, ureteral, or bladder calculus. There is no perinephric straining or hydronephrosis . Stomach is distended with heterogeneous material, otherwise normal. Small fat-containing periumbilica l hernia is unchanged. Appendectomy. No dilated small bowel. There is moderate colon stool volume. No colon wall thickening. There are a few diverticula of the sigmoid colon. There is no abdominal adeno amol or free fluid. The urinary bladder is normal. Hysterectomy. No pelvic free fluid. There is old partially united fracture of the right acetabulum. IMPRESSION: 1. No acute abdominal or pelvic abnormality. No obstructive uropathy. 2. There are a few subcentimeter groundglass nodules in the right lower lobe that are probably infec tious/inflammatory. 3. Minimal sigmoid colon diverticulosis. Electronically signed by: Gurpreet Parr MD (05/04/2020 8:45 PM) [facility]
[2020-05-04 20:57] LABS: BASO % 1 % (0-3); EOS # 0.1 x10^3/uL (0.0-0.7); EOS % 2 % (0-3); HEMATOCRIT 27.7 % (36.0-47.0); HEMOGLOBIN 8.8 g/dL (12.0-15.5); LYMPH # 0.6 x10^3/uL (1.0-4.8); LYMPH % 11 % (24-48); MEAN CORPUSCULAR HEMOGLOBIN 24 pg (25-35); MEAN CORPUSCULAR HGB CONC 32 g/dL (31-37); MEAN CORPUSCULAR VOLUME 77 fL (79-100); MONO # 0.5 x10^3/uL (0.0-1.1); MONO % 8 % (0-9); NEUT # 4.2 x10^3uL (1.8-7.7); NEUT % 77 % (31-73); PLATELET COUNT 288 x10^3/uL (140-400); RED CELL DISTRIBUTION WIDTH 15.5 % (11.5-14.5); WHITE BLOOD COUNT 5.4 x10^3/uL (4.0-11.0)
[2020-05-04 21:03] LABS: ANION GAP 9 (6-14); BLOOD UREA NITROGEN 12 mg/dL (7-20); BUN/CREATININE RATIO 17 (6-20); CALCIUM 8.3 mg/dL (8.5-10.1); CARBON DIOXIDE 27 mmol/L (21-32); CHLORIDE 103 mmol/L (98-107); CREATININE 0.7 mg/dL (0.6-1.0); GFR 88.2; GLUCOSE 152 mg/dL (70-99); POTASSIUM 3.3 mmol/L (3.5-5.1); SODIUM 139 mmol/L (136-145)
[2020-05-04 21:04] LABS: BACTERIA,URINE 0 /HPF (0-FEW); BILIRUBIN,URINE NEG (NEG); CLARITY,URINE CLEAR; COLOR,URINE COLORLESS; GLUCOSE,URINE NEG (NEG); NITRITE,URINE NEG (NEG); RBC,URINE >40 /HPF (0-2); SQUAMOUS EPITHELIAL CELL,UR MOD /LPF; UROBILINOGEN,URINE 0.2 mg/dL (0.2 mg/dL); WBC,URINE RARE /HPF (0-4)
[2020-05-04] MEDS ORDERED: ONDANSETRON ODT 4 MG TAB.RAPDIS ONE (21:06)
[2020-05-04 21:11] LABS: ALBUMIN/GLOBULIN RATIO 0.9 (1.0-1.7); ALK PHOS 116 U/L (46-116); ALT (SGPT) 17 U/L (14-59); AST (SGOT) < 5 U/L (15-37); LIPASE 146 U/L (73-393); TOTAL BILIRUBIN 0.1 mg/dL (0.2-1.0); TOTAL PROTEIN 6.4 g/dL (6.4-8.2)
[2020-05-04] MEDS ORDERED: ONDANSETRON ODT 4 MG TAB.RAPDIS PO ONE (21:15)
[2020-05-04] MEDS ORDERED: ONDA4TAB7 PO (21:44)
[2020-05-04] MEDS ORDERED: ONDANSETRON PF 4 MG/2 ML VIAL. IM ONE (22:15)
--- NOTE | 2020-05-05 02:33 | EKG ---
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
== END 2020-05-04 22:15 | disposition home or self-care (01) ==
LOC: ER 19:34
DX: G89.29 Other chronic pain (principal); R10.32 Left lower quadrant pain; R11.2 Nausea with vomiting, unspecified; M79.7 Fibromyalgia; K21.9 Gastro-esophageal reflux disease without esophagitis; E78.00 Pure hypercholesterolemia, unspecified; I10 Essential (primary) hypertension; F17.210 Nicotine dependence, cigarettes, uncomplicated; Z87.442 Personal history of urinary calculi; Z86.2 Personal history of diseases of the blood and blood-forming organs and certain disorders involving the immune mechanism; Z90.89 Acquired absence of other organs; Z90.49 Acquired absence of other specified parts of digestive tract; Z90.710 Acquired absence of both cervix and uterus; Z88.1 Allergy status to other antibiotic agents; Z88.8 Allergy status to other drugs, medicaments and biological substances
CPT/HCPCS: 36415; 71045; 74176; 80053; 81001; 83690; 85025; 93005; 96372; 99285; J2270; J2405; Q0162

== ENCOUNTER 2020-05-14 16:03 | Emergency (ER) | payer BC, OTHER ==
[~2020-05-14] VITALS: Ht 162.6 cm; Wt 106.0 kg
[2020-05-14 16:03] VITALS: BP 157/99
--- NOTE | 2020-05-14 16:27 | PHYS DOC ---
Past History Past Medical History: Anemia, Anxiety, Depression, Fibromyalgia, GERD, High Cholesterol, Hypertension, Kidney Stones, Other Additional Past Medical Histor: ulcerative colitis, colon polyps Past Surgical History: Appendectomy, Cholecystectomy, Hysterectomy, Other Additional Past Surgical Histo: umbilical hernia repair Smoking: Cigarettes Alcohol Use: Occasionally Drug Use: None Adult General Chief Complaint Chief Complaint: ABDOMINAL PAIN [facility] Patient is a 49-year-old female with past medical history of reported ulcerative colitis who presents to the emergency room complaining of left lower quadrant abdominal pain. Patient states that this is the same pain that she was here for 10 days ago. She states it did start again this morning. She has had multiple episodes like this in the past. She states she took her home medication and it did not help with the pain. She has had some blood in her diarrhea which is typical during these episodes. Does not have any shortness of breath or dizziness. She follows up with GI June 07 at [place]. She last saw GI in February. She has not had any kind of fever. She does think she has had some vomiting. She states she is taking all of her home medications and has tried her home hydrocodone without any relief. Review of Systems Review of Systems Complete ROS is negative unless otherwise documented in [facility] Allergies Allergies Allergies Coded Allergies Type Severity Reaction Last Updated Verified cephalexin Allergy Intermediate "ears burn/rash on neck" 04/08/20 Yes ketorolac Allergy Intermediate Hives 04/08/20 Yes prochlorperazine Allergy Intermediate 04/08/20 Yes Physical Exam Physical Exam General: Awake, alert, NAD. Well Nourished, well hydrated. Cooperative HEENT: Atraumatic, EOMI, PERRL, airway patent, moist oral mucosa Neck: Supple, trachea midline Respiratory: CTA bilaterally, normal effort, no wheezing/crackles CV: RRR, no murmur, cap refill <2 GI: Soft, nondistended, lower abdominal tenderness, no masses MSK: No obvious deformities Skin: Warm, dry, intact Neuro: A&O x3, speech NL, sensory and motor grossly intact, no focal deficits Psych: Normal affect, normal mood, not suicidal or homicidal EKG EKG [] Radiology/Procedures Radiology/Procedures [] Heart Score Risk Factors: Risk Factors: DM, Current or recent (<one month) smoker, HTN, HLP, family history of CAD, obesity. Risk Scores: Risk Factors: DM, Current or recent (<one month) smoker, HTN, HLP, family history of CAD, obesity. Course & Med Decision Making Course & Med Decision Making Pertinent Labs and Imaging studies reviewed. (See chart for details) Patient is a 49-year-old female who presents to the emergency room complaining of the left lower quadrant abdominal pain. Patient has multiple episodes of abdominal pain each week. This is consistent with previous episodes. Patient has normal vitals. Blood pressure and heart rate are normal not suggestive of any significant blood loss. Patient does not have a surgical abdomen. She last had a CT scan 10 days ago which was normal at that time. Lab work shows chronic anemia but otherwise is normal. I discussed with the patient that I am unsure what else we can offer from an emergency room standpoint as she had a full work-up done 10 days ago for the same pain that was normal and that this is been ongoing chronic issue. Patient became very upset and stated that she was just going to leave. I did offer to refer the patient to our GI specialist that she is unable to get into hers to until the . Patient declined and stated she did not want to help. Patient eloped after I evaluated her Dragon Disclaimer Dragon Disclaimer This electronic medical record was generated, in whole or in part, using a voice recognition dictation system. Departure Departure: Impression: Primary Impression: Chronic abdominal pain Additional Impression: Left against medical advice Disposition: 07 AMA/ELOPED/LWBS Condition: STABLE Referrals: PCP,UNKNOWN (PCP) Problem Qualifiers JENAE FORMAN MD May 14, 2020 16:27
== END 2020-05-14 16:20 | disposition left against medical advice (07) ==
LOC: ER 16:03
DX: R10.32 Left lower quadrant pain (principal); G89.29 Other chronic pain; K21.9 Gastro-esophageal reflux disease without esophagitis; E78.00 Pure hypercholesterolemia, unspecified; I10 Essential (primary) hypertension; F17.210 Nicotine dependence, cigarettes, uncomplicated; Z98.890 Other specified postprocedural states; Z90.89 Acquired absence of other organs; Z90.49 Acquired absence of other specified parts of digestive tract; Z90.710 Acquired absence of both cervix and uterus; Z88.1 Allergy status to other antibiotic agents; Z88.6 Allergy status to analgesic agent; Z88.8 Allergy status to other drugs, medicaments and biological substances
CPT/HCPCS: 99281

== ENCOUNTER 2020-05-27 21:50 | Emergency (ER) | payer BC, OTHER ==
[~2020-05-27] VITALS: Ht 162.6 cm; Wt 102.0 kg
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
[2020-05-27] MEDS ORDERED: MAGNESIUM HYDROXIDE 2,400 MG/30 ML ORAL.SUSP. PO ONE (22:15)
[2020-05-27] MEDS ORDERED: FAMOTIDINE 20 MG/2 ML VIAL IVP ONE (22:15)
[2020-05-27] MEDS ORDERED: IV RINGERS SOLUTION,LACTATED 1,000 ML IV SCH (22:15)
[2020-05-27] MEDS ORDERED: ONDANSETRON PF 4 MG/2 ML VIAL. IVP ONE (22:15)
[2020-05-27] MEDS ORDERED: MORPHINE SULFATE 10 MG/ML SYRINGE. SQ ONE (22:15)
[2020-05-27 22:42] LABS: BARBITURATES NEG (NEG); BENZODIAZEPINES POS (NEG); CANNABINOIDS POS (NEG); COCAINE NEG (NEG); METHADONE NEG (NEG); OPIATES POS (NEG); PHENCYCLIDINE NEG (NEG)
[2020-05-27 22:50] LABS: BACTERIA,URINE 0 /HPF (0-FEW); BILIRUBIN,URINE NEG (NEG); CLARITY,URINE CLEAR; COLOR,URINE AMBER; GLUCOSE,URINE NEG (NEG); NITRITE,URINE NEG (NEG); RBC,URINE 0 /HPF (0-2); UROBILINOGEN,URINE 0.2 mg/dL (0.2 mg/dL); WBC,URINE 0 /HPF (0-4)
--- NOTE | 2020-05-27 22:52 | RAD ---
Three-view acute abdominal series. HISTORY: Ulcerative colitis, pain, history sternal fracture 3 views were taken for an acute abdominal series. There is linear scarring or atelectasis at the left costophrenic angle. There are no other acute infiltrates. Heart is normal in size. There is no effus ion. There is a plate and screws in the sternum which are new compared to the study from October 2019. There is no free air on the upright view the abdomen. Patient's had a cholecystectomy. There is mild scoliosis and degenerative change in the spine. Bowel pattern is normal. There is sclerosis at the r ight acetabulum unchanged from an old study. IMPRESSION: 1. Mild linear scarring or atelectasis left lung base without other infiltrates. 2. No free air noted or abnormal air-fluid levels. 3. No bowel obstruction or other acute finding in the abdomen. Electronically signed by: Papo Matamoros MD (05/27/2020 10:50 PM) [facility]
[2020-05-27 22:53] LABS: BASO % 0 % (0-3); EOS # 0.2 x10^3/uL (0.0-0.7); EOS % 3 % (0-3); HEMATOCRIT 32.1 % (36.0-47.0); LYMPH # 0.5 x10^3/uL (1.0-4.8); LYMPH % 11 % (24-48); MEAN CORPUSCULAR HEMOGLOBIN 25 pg (25-35); MEAN CORPUSCULAR HGB CONC 31 g/dL (31-37); MEAN CORPUSCULAR VOLUME 80 fL (79-100); MONO # 0.5 x10^3/uL (0.0-1.1); MONO % 10 % (0-9); NEUT # 3.5 x10^3uL (1.8-7.7); NEUT % 76 % (31-73); PLATELET COUNT 255 x10^3/uL (140-400); RED BLOOD COUNT 4.02 x10^6/uL (3.50-5.40); RED CELL DISTRIBUTION WIDTH 16.8 % (11.5-14.5); WHITE BLOOD COUNT 4.7 x10^3/uL (4.0-11.0)
[2020-05-27 22:54] LABS: AMPHETAMINE/METHAMPHETAMINE NEG (NEG)
[2020-05-27 22:59] LABS: CALCIUM 8.4 mg/dL (8.5-10.1); CREATININE 0.7 mg/dL (0.6-1.0); GFR 88.2; POTASSIUM 3.2 mmol/L (3.5-5.1)
[2020-05-27 23:13] LABS: ALBUMIN 3.1 g/dL (3.4-5.0); DIRECT BILIRUBIN 0.1 mg/dL (0.0-0.2); TOTAL BILIRUBIN 0.3 mg/dL (0.2-1.0); TOTAL PROTEIN 6.3 g/dL (6.4-8.2)
[2020-05-27] MEDS ORDERED: ONDA4TAB7 PO (23:49)
[2020-05-27 23:50] VITALS: BP 165/99
== END 2020-05-27 23:53 | disposition home or self-care (01) ==
LOC: ER 21:50
DX: G89.29 Other chronic pain (principal); R10.32 Left lower quadrant pain; E11.9 Type 2 diabetes mellitus without complications; K21.9 Gastro-esophageal reflux disease without esophagitis; M79.7 Fibromyalgia; E78.00 Pure hypercholesterolemia, unspecified; I10 Essential (primary) hypertension; F19.10 Other psychoactive substance abuse, uncomplicated; K58.9 Irritable bowel syndrome, unspecified; F41.9 Anxiety disorder, unspecified; F32.9 Major depressive disorder, single episode, unspecified; F17.210 Nicotine dependence, cigarettes, uncomplicated; Z87.442 Personal history of urinary calculi; Z86.2 Personal history of diseases of the blood and blood-forming organs and certain disorders involving the immune mechanism; Z90.49 Acquired absence of other specified parts of digestive tract; Z90.89 Acquired absence of other organs; Z90.710 Acquired absence of both cervix and uterus; Z88.1 Allergy status to other antibiotic agents; Z88.8 Allergy status to other drugs, medicaments and biological substances
CPT/HCPCS: 36415; 74022; 80048; 80076; 80307; 81001; 82150; 82550; 84484; 85025; 85610; 85730; 96361; 96372; 96374; 96375; 99284; J2270; J2405; J3490; J7120

== ENCOUNTER 2020-06-12 20:01 | Emergency (ER) | payer OTHER, BC ==
[~2020-06-12] VITALS: Ht 162.6 cm; Wt 100.9 kg
[2020-06-12 20:10] VITALS: BP 141/102
[2020-06-12] MEDS ORDERED: ACETAMINOPHEN 500 MG TABLET PO ONE (20:30)
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
[2020-06-12] MEDS ORDERED: oxyCODONE IR 5 MG TABLET PO PRN (21:45)
== END 2020-06-12 21:48 | disposition home or self-care (01) ==
LOC: ER 20:01
DX: M54.5 Low back pain (principal); F41.9 Anxiety disorder, unspecified; F32.9 Major depressive disorder, single episode, unspecified; E11.9 Type 2 diabetes mellitus without complications; M79.7 Fibromyalgia; K21.9 Gastro-esophageal reflux disease without esophagitis; E78.00 Pure hypercholesterolemia, unspecified; I10 Essential (primary) hypertension; K58.9 Irritable bowel syndrome, unspecified; F17.210 Nicotine dependence, cigarettes, uncomplicated; Z87.442 Personal history of urinary calculi; Z90.89 Acquired absence of other organs; Z90.49 Acquired absence of other specified parts of digestive tract; Z90.710 Acquired absence of both cervix and uterus; Z88.1 Allergy status to other antibiotic agents; Z88.8 Allergy status to other drugs, medicaments and biological substances; V49.49XA Driver injured in collision with other motor vehicles in traffic accident, initial encounter; Y93.I9 Activity, other involving external motion; Y92.89 Other specified places as the place of occurrence of the external cause; Y99.8 Other external cause status
CPT/HCPCS: 72131; 99284-25

== ENCOUNTER 2020-06-28 19:11 | Emergency (ER) | payer OTHER, BC ==
[~2020-06-28] VITALS: Ht 162.6 cm; Wt 100.9 kg
[2020-06-28 19:18] VITALS: BP 180/111
[2020-06-28] MEDS ORDERED: IV NORMAL SALINE 1,000ML 1,000 ML IV ONE (19:45)
[2020-06-28] MEDS ORDERED: METOCLOPRAMIDE HCL 10 MG/2 ML VIAL. IVP ONE (19:45)
[2020-06-28] MEDS ORDERED: IOHEXOL 300 MG/ML 75 ML VIAL. IV ONE (19:45)
--- NOTE | 2020-06-28 20:09 | PHYS DOC ---
Past History Past Medical History: Anemia, Anxiety, Constipation, Depression, Diabetes, Fibromyalgia, GERD, High Cholesterol, Hypertension, IBS, Kidney Stones, Other Additional Past Medical Histor: ulcerative colitis, colon polyps Past Surgical History: Appendectomy, Cholecystectomy, Hysterectomy, Other Additional Past Surgical Histo: umbilical hernia repair, STERNUM REPAIR Smoking: Cigarettes Alcohol Use: Occasionally Drug Use: None Adult General Chief Complaint Chief Complaint: ABDOMINAL PAIN HPI HPI Patient is a 49-year-old female presents emergency department complaining of nausea vomiting and diarrhea with left lower quadrant pain that started today. Patient states she has had 10 bouts of diarrhea, vomited too many times for her to count. Patient reports seeing blood in her diarrhea, states the consistency is watery, patient reports seeing food particles and yellow vomitus. Patient states she has had diaphoretic episodes with this. Patient states she is still nauseated, reports her pain a 10/10 on the 1-10 pain scale. Patient states that she cannot take Tylenol or ibuprofen for pain, also cannot take Toradol for pain. Patient states she is allergic to Keflex and Compazine and Toradol. Patient reports home medications of Zofran, Xanax, Cymbalta, Prevacid, Zocor, metoprolol, Bentyl, and trazodone. Patient denies chest pain, chest congestion, shortness of breath. Patient denies headaches, back pain, numbness or tingling to her extremities, denies visual changes, denies dizziness. Review of Systems Review of Systems Constitutional: Denies fever or chills [] Eyes: Denies change in visual acuity, redness, or eye pain [] HENT: Denies nasal congestion or sore throat [] Respiratory: Denies cough or shortness of breath [] Cardiovascular: No additional information not addressed in HPI [] GI: Denies abdominal pain, nausea, vomiting, bloody stools or diarrhea [] : Denies dysuria or hematuria [] Musculoskeletal: Denies back pain or joint pain [] Integument: Denies rash or skin lesions [] Neurologic: Denies headache, focal weakness or sensory changes [] Endocrine: Denies polyuria or polydipsia [] All other systems were reviewed and found to be within normal limits, except as documented in this note. Current Medications Current Medications Current Medications Medications (Trade) Dose Ordered Sig/Enrike Start Time Stop Time Status Last Admin Dose Admin Iohexol (Omnipaque 300 Mg/ml) 75 ml 1X ONCE 06/28/20 19:45 06/28/20 19:46 DC Metoclopramide HCl (Reglan Vial) 10 mg 1X ONCE 06/28/20 19:45 06/28/20 19:46 DC Sodium Chloride 1,000 ml @ 1,000 mls/hr 1X ONCE 06/28/20 19:45 06/28/20 20:44 Allergies Allergies Allergies Coded Allergies Type Severity Reaction Last Updated Verified cephalexin Allergy Intermediate "ears burn/rash on neck" 04/08/20 Yes ketorolac Allergy Intermediate Hives 04/08/20 Yes prochlorperazine Allergy Intermediate 04/08/20 Yes Physical Exam Physical Exam Constitutional: Well developed, well nourished, no acute distress, non-toxic appearance. 49-year-old female in no apparent distress. HENT: Normocephalic, atraumatic, bilateral external ears normal, oropharynx moist, no oral exudates, nose normal. Eyes: PERRLA, EOMI, conjunctiva normal, no discharge. Neck: Normal range of motion, no tenderness, supple, no stridor. Cardiovascular:Heart rate regular rhythm, no murmur, heart sounds S1-S2 to auscultation. Lungs & Thorax: Bilateral breath sounds clear to auscultation all lung craven, no adventitious lung sounds appreciated. Abdomen: Bowel sounds normal, soft, no tenderness, no masses, no pulsatile masses. Pain to palpation all 4 quadrants, old abdominal surgical scars present, no ecchymosis of the abdomen appreciated. Skin: Warm, dry, no erythema, no rash. Back: No tenderness, no CVA tenderness. Extremities: No tenderness, no cyanosis, no clubbing, ROM intact, no edema. Neurologic: Alert and oriented X 3, normal motor function, normal sensory function, no focal deficits noted. Psychologic: Affect normal, judgement normal, mood normal. EKG EKG [] Radiology/Procedures Radiology/Procedures [] Heart Score C/O Chest Pain: No Risk Factors: Risk Factors: DM, Current or recent (<one month) smoker, HTN, HLP, family history of CAD, obesity. Risk Scores: Risk Factors: DM, Current or recent (<one month) smoker, HTN, HLP, family history of CAD, obesity. Course & Med Decision Making Course & Med Decision Making Pertinent Labs and Imaging studies reviewed. (See chart for details) 49-year-old female, vital signs reviewed, presents to the emergency department concerning for abdominal pain, nausea, vomiting, and diarrhea. Physical examination was unremarkable. Patient states she would like something stronger for her pain. An extensive chart review noted patient stated her cousin dropped her off in the emergency department, was given IV morphine, was seen leaving and getting into her own POV and driving away. Patient stated today that her cousin dropped her off as well, when asked patient about leaving in her own POV last time, patient did not answer, I asked patient if she could have her cousin come by to the emergency department or come into the emergency department so that I could consider pain medications, patient states this is not possible. Patient did not answer any further questions during physical exam. ED plan will order CBC, CMP, IV saline lock, urinalysis assay, CT abdomen pelvis related to patient's chief complaints. ED nurse brought to my attention patient has eloped from the emergency department at approximately 2000 today, it was also brought to my attention that this patient has a history of leaving or eloping from the emergency department as soon as she finds out she is not getting Dilaudid. Dragon Disclaimer Dragon Disclaimer This electronic medical record was generated, in whole or in part, using a voice recognition dictation system. Departure Departure: Impression: Primary Impression: Eloped from emergency department Disposition: 07 LEFT AWOL/ELOPED (Patient eloped from emergency department at approximately 2000 today.) Referrals: PCP,NO (PCP) JUSTO STEIN APRN Jun 28, 2020 20:09
[2020-06-28 20:10] LABS: BACTERIA,URINE 0 /HPF (0-FEW); BILIRUBIN,URINE NEG (NEG); CLARITY,URINE CLEAR; COLOR,URINE COLORLESS; GLUCOSE,URINE NEG (NEG); NITRITE,URINE NEG (NEG); RBC,URINE 0 /HPF (0-2); UROBILINOGEN,URINE 0.2 mg/dL (0.2 mg/dL); WBC,URINE 0 /HPF (0-4)
== END 2020-06-28 20:00 | disposition left against medical advice (07) ==
LOC: ER 19:11
DX: R11.2 Nausea with vomiting, unspecified (principal); R19.7 Diarrhea, unspecified; R10.32 Left lower quadrant pain; F41.9 Anxiety disorder, unspecified; F32.9 Major depressive disorder, single episode, unspecified; E11.9 Type 2 diabetes mellitus without complications; M79.7 Fibromyalgia; K21.9 Gastro-esophageal reflux disease without esophagitis; E78.00 Pure hypercholesterolemia, unspecified; I10 Essential (primary) hypertension; K58.9 Irritable bowel syndrome, unspecified; F17.210 Nicotine dependence, cigarettes, uncomplicated; Z87.442 Personal history of urinary calculi; Z86.2 Personal history of diseases of the blood and blood-forming organs and certain disorders involving the immune mechanism; Z90.89 Acquired absence of other organs; Z90.49 Acquired absence of other specified parts of digestive tract; Z90.710 Acquired absence of both cervix and uterus; Z88.1 Allergy status to other antibiotic agents; Z88.8 Allergy status to other drugs, medicaments and biological substances
CPT/HCPCS: 81001; 99283

== ENCOUNTER 2020-08-23 19:27 | Emergency (ER) | payer BC, OTHER ==
[~2020-08-23] VITALS: Ht 162.6 cm; Wt 100.9 kg
--- NOTE | 2020-08-23 19:33 | PHYS DOC ---
Past History Past Medical History: Anemia, Anxiety, Constipation, Depression, Diabetes, Fibromyalgia, GERD, High Cholesterol, Hypertension, IBS, Kidney Stones, Other Additional Past Medical Histor: ulcerative colitis, colon polyps Past Surgical History: Appendectomy, Cholecystectomy, Hysterectomy, Other Additional Past Surgical Histo: umbilical hernia repair, STERNUM REPAIR Smoking: Cigarettes Alcohol Use: Occasionally Drug Use: None General Adult HPI: HPI: ".. I ve got some gut stuff going on.. I octavio hurt all over my gut.. I usually follow with Dr. mcghee at [facility]..." Patient is a 49 year old female who presents with above hx and complaints of abdomen pain. Patient denies any trauma. Patient denies any bad food. Patient presents with no history of any recent travel. No specific ill contact. The patient has complaints of of generalized abdomen pain. Patient has had history of past episodes of constipation, appendectomy, cholecystectomy, hysterectomy, anxiety, depression, chronic anemia, fibromyalgia, colitis, ulcerative colitis, colon polyps, GERD, hypertension, hyperlipidemia, kidney stones, and history of noncompliance with medications. Patient has remote tobacco abuse. Has not smoked for the last 2 years. No recent alcohol use. No illicit drug use. Review of Systems: Review of Systems: Constitutional: Denies fever or chills Eyes: Denies change in visual acuity HENT: Denies nasal congestion or sore throat Respiratory: Denies cough or shortness of breath Cardiovascular: Denies chest pain or edema GI: Complains of generalized abdominal pain, nausea,. Denies vomiting, bloody stools or diarrhea : Denies dysuria Musculoskeletal: Denies back pain or joint pain Integument: Denies rash Neurologic: Denies headache, focal weakness or sensory changes Endocrine: Denies polyuria or polydipsia Lymphatic: Denies swollen glands Psychiatric: Denies depression or anxiety Family History: Family History: There is family history of COPD with mother. Father had diabetes and heart disease Current Medications: Current Meds: See nursing for home meds Allergies: Allergies: Allergies Coded Allergies Type Severity Reaction Last Updated Verified cephalexin Allergy Intermediate "ears burn/rash on neck" 04/08/20 Yes ketorolac Allergy Intermediate Hives 04/08/20 Yes prochlorperazine Allergy Intermediate 04/08/20 Yes Physical Exam: PE: Constitutional: Reports moderately acute distress, non-toxic appearance. [] HENT: Normocephalic, atraumatic, bilateral external ears normal, oropharynx dry, no oral exudates, nose normal. [] Eyes: PERRLA, EOMI, conjunctiva normal, no discharge. [] Neck: Normal range of motion, no tenderness, supple, no stridor. [] Cardiovascular: Tachycardia heart rate regular rhythm, no murmur []. PMI to the left Lungs & Thorax: Bilateral breath sounds equal apex with scattered wheezing on auscultation [. Mid line scar. Abdomen: Bowel sounds normal, soft, generalized tenderness, no masses, no pulsatile masses. Old surgical scars. Distended. Skin: Warm, dry, no erythema, no rash. [] Back: No tenderness, no CVA tenderness. [] Extremities: No tenderness, no cyanosis, no clubbing, ROM intact, no edema. No cording appreciated Neurologic: Alert and oriented X 3, normal motor function, normal sensory function, no focal deficits noted. [] Psychologic: Affect anxious, judgement normal, mood normal. [] EKG: EKG: My interpretation EKG shows a sinus rhythm at 97 bpm. Leftward axis. No findings acute STEMI or contralateral changes. [] Radiology/Procedures: Radiology/Procedures: [place] [id number] IMAGING REPORT Signed PATIENT: BETH LERNER ACCOUNT: [id number] : 1970 LOCATION: ER AGE: 49 SEX: F EXAM STATUS: REG ER ORD. PHYSICIAN: MENDEZ VALDOVINOS MD REASON: abd. pain, n, v PROCEDURE: ACUTE ABDOMEN SERIES EXAM: Frontal view of the chest, AP views of the abdomen in upright and supine positions. CLINICAL INDICATION: Reason: abd. pain, n, v / Spl. Instructions: / History: COMPARISON: 05/27/2020 FINDINGS and IMPRESSION: Cardiomediastinal silhouette is normal. Patchy infrahilar right lung opacities may represent atelectasis or developing consolidation. No pleural effusion or pneumothorax. No abnormal small or large bowel dilatation. Moderate colonic stool content to be correlated for possible constipation.. No abnormal soft tissue mass effect. No suspicious calcifications are seen. No free intraperitoneal gas. Right upper quadrant cholecystectomy clips are seen. Electronically signed by: Ciro Hu MD (08/23/2020 8:29 PM) TRUNGALICIA DICTATED AND SIGNED BY: CIRO HU MD DATE: 08/23/202026 CC: MENDEZ VALDOVINOS MD; PCP,NO ~MTH0 0 [][place] [address] IMAGING REPORT Signed PATIENT: BETH LERNER ACCOUNT: [id number] : 1970 LOCATION: ER AGE: 49 SEX: F EXAM STATUS: REG ER ORD. PHYSICIAN: MENDEZ VALDOVINOS MD REASON: abd. pain, n, v PROCEDURE: ACUTE ABDOMEN SERIES EXAM: Frontal view of the chest, AP views of the abdomen in upright and supine positions. CLINICAL INDICATION: Reason: abd. pain, n, v / Spl. Instructions: / History: COMPARISON: 05/27/2020 FINDINGS and IMPRESSION: Cardiomediastinal silhouette is normal. Patchy infrahilar right lung opacities may represent atelectasis or developing consolidation. No pleural effusion or pneumothorax. No abnormal small or large bowel dilatation. Moderate colonic stool content to be correlated for possible constipation.. No abnormal soft tissue mass effect. No suspicious calcifications are seen. No free intraperitoneal gas. Right upper quadrant cholecystectomy clips are seen. Electronically signed by: Ciro Hu MD (08/23/2020 8:29 PM) TRUNGALICIA DICTATED AND SIGNED BY: CIRO HU MD DATE: 08/23/202026 CC: MENDEZ VALDOVINOS MD; PCP,NO ~MTH0 0 Heart Score: C/O Chest Pain: N/A HEART Score for Chest Pain: HEART Score for Chest Pain Response (Comments) Value History Slighlty/Non-Suspicious 0 ECG Nonspecific Repolarizatio 1 Age >45 - < 65 1 Risk Factors 1 or 2 Risk Factors 1 Troponin < Normal Limit 0 Total 3 Risk Factors: Risk Factors: DM, Current or recent (<one month) smoker, HTN, HLP, family history of CAD, obesity. Risk Scores: Score 0 - 3: 2.5% MACE over next 6 weeks - Discharge Home Score 4 - 6: 20.3% MACE over next 6 weeks - Admit for Clinical Observation Score 7 - 10: 72.7% MACE over next 6 weeks - Early Invasive Strategies Course & Med Decision Making: Course & Med Decision Making Pertinent Labs and Imaging studies reviewed. (See chart for details) Patient use MDI 2 puffs 4 times a day. Patient take Zithromax 250 mg a day. Patient follow-up primary care. Patient review ED record. Patient return if any concerns. Follow up pending cultures. Impression: 1. Abdomen pain 2. Constipation 3. Anemia 4. Mild hypokalemia 3.3 5. Malnutrition albumin 2.9 6. Drug screen positive opiates and benzos 7. Pneumonia- atypical basilar [] Dragon Disclaimer: Dragon Disclaimer: This electronic medical record was generated, in whole or in part, using a voice recognition dictation system. Departure Departure: Referrals: PCP,NO (PCP) MENDEZ VALDOVINOS MD Aug 23, 2020 19:33
[2020-08-23] MEDS ORDERED: FAMOTIDINE 20 MG/2 ML VIAL IVP ONE (19:45)
[2020-08-23] MEDS ORDERED: ONDANSETRON PF 4 MG/2 ML VIAL. IVP ONE (19:45)
[2020-08-23] MEDS ORDERED: IV RINGERS SOLUTION,LACTATED 1,000 ML IV SCH (19:45)
[2020-08-23] MEDS ORDERED: KETOROLAC 30 MG/ML VIAL. IVP ONE (19:45)
--- NOTE | 2020-08-23 20:31 | RAD ---
EXAM: Frontal view of the chest, AP views of the abdomen in upright and supine positions. CLINICAL INDICATION: Reason: abd. pain, n, v / Spl. Instructions: / History: COMPARISON: 05/27/2020 FINDINGS and IMPRESSION: Cardiomediastinal silhouette is normal. Patchy infrahilar right lung opacities may represent atelecta sis or developing consolidation. No pleural effusion or pneumothorax. No abnormal small or large bowel dilatation. Moderate colonic stool content to be correlated for pos sible constipation.. No abnormal soft tissue mass effect. No suspicious calcifications are seen. N o free intraperitoneal gas. Right upper quadrant cholecystectomy clips are seen. Electronically signed by: Ciro Javed MD (08/23/2020 8:29 PM) [place]
[2020-08-23 20:59] LABS: BARBITURATES NEG (NEG); BENZODIAZEPINES POS (NEG); CANNABINOIDS NEG (NEG); COCAINE NEG (NEG); METHADONE NEG (NEG); OPIATES POS (NEG); PHENCYCLIDINE NEG (NEG)
[2020-08-23 21:11] LABS: AMPHETAMINE/METHAMPHETAMINE NEG (NEG)
[2020-08-23 21:20] LABS: BASO % 1 % (0-3); EOS # 0.2 x10^3/uL (0.0-0.7); EOS % 3 % (0-3); HEMATOCRIT 26.6 % (36.0-47.0); HEMOGLOBIN 8.7 g/dL (12.0-15.5); LYMPH # 0.4 x10^3/uL (1.0-4.8); LYMPH % 8 % (24-48); MEAN CORPUSCULAR HEMOGLOBIN 26 pg (25-35); MEAN CORPUSCULAR HGB CONC 33 g/dL (31-37); MEAN CORPUSCULAR VOLUME 79 fL (79-100); MONO # 0.4 x10^3/uL (0.0-1.1); MONO % 8 % (0-9); NEUT # 4.5 x10^3uL (1.8-7.7); NEUT % 81 % (31-73); PLATELET COUNT 216 x10^3/uL (140-400); RED BLOOD COUNT 3.35 x10^6/uL (3.50-5.40); RED CELL DISTRIBUTION WIDTH 16.2 % (11.5-14.5); WHITE BLOOD COUNT 5.6 x10^3/uL (4.0-11.0)
[2020-08-23 21:22] LABS: BILIRUBIN,URINE NEG (NEG); CLARITY,URINE CLEAR; COLOR,URINE YELLOW; GLUCOSE,URINE NEG (NEG); NITRITE,URINE NEG (NEG); UROBILINOGEN,URINE 0.2 mg/dL (0.2 mg/dL)
[2020-08-23 21:24] LABS: BACTERIA,URINE 0 /HPF (0-FEW); RBC,URINE 0 /HPF (0-2); SQUAMOUS EPITHELIAL CELL,UR OCC /LPF; WBC,URINE 0 /HPF (0-4)
[2020-08-23] MEDS ORDERED: MORPHINE SULFATE 10 MG/ML SYRINGE. ONE (21:42)
[2020-08-23] MEDS ORDERED: MORPHINE SULFATE 10 MG/ML SYRINGE. SQ ONE (21:45)
[2020-08-23 21:50] LABS: CALCIUM 8.1 mg/dL (8.5-10.1); CREATININE 0.7 mg/dL (0.6-1.0); GFR 88.2; POTASSIUM 3.4 mmol/L (3.5-5.1)
[2020-08-23 22:00] LABS: ALBUMIN 2.9 g/dL (3.4-5.0); DIRECT BILIRUBIN 0.1 mg/dL (0.0-0.2); TOTAL BILIRUBIN 0.2 mg/dL (0.2-1.0); TOTAL PROTEIN 5.9 g/dL (6.4-8.2)
[2020-08-24] MEDS ORDERED: MORPHINE SULFATE 10 MG/ML SYRINGE. SQ ONE
--- NOTE | 2020-08-24 00:09 | EKG ---
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
[2020-08-24 19:33] VITALS: BP 149/104
== END 2020-08-24 00:04 | disposition home or self-care (01) ==
LOC: ER 19:27
DX: K59.00 Constipation, unspecified (principal); D64.9 Anemia, unspecified; E87.6 Hypokalemia; E46 Unspecified protein-calorie malnutrition; J18.9 Pneumonia, unspecified organism; R10.84 Generalized abdominal pain; F41.9 Anxiety disorder, unspecified; F32.9 Major depressive disorder, single episode, unspecified; E11.9 Type 2 diabetes mellitus without complications; E78.00 Pure hypercholesterolemia, unspecified; F17.210 Nicotine dependence, cigarettes, uncomplicated; M79.7 Fibromyalgia; K21.9 Gastro-esophageal reflux disease without esophagitis; I10 Essential (primary) hypertension; E78.5 Hyperlipidemia, unspecified; K58.9 Irritable bowel syndrome, unspecified; Z68.38 Body mass index [BMI] 38.0-38.9, adult; Z86.2 Personal history of diseases of the blood and blood-forming organs and certain disorders involving the immune mechanism; Z87.442 Personal history of urinary calculi; Z90.89 Acquired absence of other organs; Z90.49 Acquired absence of other specified parts of digestive tract; Z90.710 Acquired absence of both cervix and uterus; Z88.1 Allergy status to other antibiotic agents; Z88.8 Allergy status to other drugs, medicaments and biological substances
CPT/HCPCS: 36415; 74022; 80048; 80076; 80307; 81001; 82150; 82550; 83690; 84484; 85025; 93005; 96361; 96372; 96374; 96375; 99285; J2270; J2405; J3490; J7120

== ENCOUNTER 2020-10-22 20:20 | Emergency (ER) | payer BC ==
[~2020-10-22] VITALS: Ht 162.6 cm; Wt 93.4 kg
[2020-10-22] MEDS ORDERED: HYDR-2759 PO (20:56)
[2020-10-22] MEDS ORDERED: SULF500T36 PO (20:56)
[2020-10-22] MEDS ORDERED: HYDROmorphone PF 1 MG/ML DISP.SYRIN IVP ONE ×2 (21:15→23:15)
[2020-10-22] MEDS ORDERED: ONDANSETRON PF 4 MG/2 ML VIAL. IVP ONE ×2 (21:15→23:15)
[2020-10-22] MEDS ORDERED: IV NORMAL SALINE 1,000ML 1,000 ML IV ONE (21:15)
--- NOTE | 2020-10-22 21:19 | PHYS DOC ---
Past History Past Medical History: Anemia, Anxiety, Constipation, Depression, Diabetes, Fibromyalgia, GERD, High Cholesterol, Hypertension, IBS, Kidney Stones, Other Additional Past Medical Histor: ulcerative colitis, colon polyps (EDUIN GARCIA APRN) Past Surgical History: Appendectomy, Cholecystectomy, Hysterectomy, Other Additional Past Surgical Histo: umbilical hernia repair, STERNUM REPAIR (EDUIN GARCIA APRN) Smoking: Cigarettes Alcohol Use: Occasionally Drug Use: None (EDUIN GARCIA APRN) General Adult EDM: Chief Complaint: ABDOMINAL PAIN HPI: HPI: Patient is a 49-year-old female who presents with left lower abdominal pain. Patient has history of colitis and diverticulosis. Patient has chronic abdominal pain. Patient states that she has been able to keep the nausea and vomiting controlled with medication. Patient denies fever. Denies blood in stool. (EDUIN GARCIA APRN) Review of Systems: Review of Systems: Constitutional: Denies fever or chills Eyes: Denies change in visual acuity HENT: Denies nasal congestion or sore throat Respiratory: Denies cough or shortness of breath Cardiovascular: Denies chest pain or edema GI: Reports left lower quadrant abdominal pain, nausea, vomiting, denies bloody stools or diarrhea : Denies dysuria Musculoskeletal: Denies back pain or joint pain Integument: Denies rash Neurologic: Denies headache, focal weakness or sensory changes Endocrine: Denies polyuria or polydipsia Lymphatic: Denies swollen glands Psychiatric: Denies depression or anxiety (EDUIN GARCIA APRN) Allergies: Allergies: Allergies Coded Allergies Type Severity Reaction Last Updated Verified cephalexin Allergy Intermediate "ears burn/rash on neck" 10/22/20 Yes ketorolac Allergy Intermediate Hives 10/22/20 Yes prochlorperazine Allergy Intermediate 10/22/20 Yes (EDUIN GARCIA APRN) Physical Exam: PE: Constitutional: Well developed, well nourished, no acute distress, non-toxic appearance. [] HENT: Normocephalic, atraumatic, bilateral external ears normal, oropharynx moist, no oral exudates, nose normal. [] Eyes: PERRLA, EOMI, conjunctiva normal, no discharge. [] Neck: Normal range of motion, no tenderness, supple, no stridor. [] Cardiovascular:Heart rate regular rhythm, no murmur [] Lungs & Thorax: Bilateral breath sounds clear to auscultation [] Abdomen: Bowel sounds normal, soft, left lower quadrant tenderness, no masses, no pulsatile masses. [] Skin: Warm, dry, no erythema, no rash. [] Back: No tenderness, no CVA tenderness. [] Extremities: No tenderness, no cyanosis, no clubbing, ROM intact, no edema. [] Neurologic: Alert and oriented X 3, normal motor function, normal sensory function, no focal deficits noted. [] Psychologic: Affect normal, judgement normal, mood normal. [] (EDUIN GARCIA SHELTER DIRECTOR) Current Patient Data: Vital Signs: Vital Signs Date Time Temp Pulse Resp B/P (MAP) Pulse Ox O2 Delivery O2 Flow Rate FiO2 10/22/20 20:56 99.2 110 22 159/98 (118) 100 Room Air (EDUIN GARCIA APRN) EKG: EKG: [] (EDUIN GARCIA APRN) EKG: My interpretation EKG shows a sinus rhythm at 90 bpm. There is some mild leftward axis. But no findings of acute STEMI with contralateral changes. Time of EKG is 2200 (MENDEZ VALDOVINOS MD) Radiology/Procedures: Radiology/Procedures: []Exam Date: 10/22/2020 9:[address] ABDOMEN+PELVIS WO Indication: Reason: abd pain / Spl. Instructions: / History: . TECHNIQUE: CT examination of the abdomen and pelvis was performed without oral or intravenous contrast. One or more of the following dose reduction techniques were utilized: *Automated exposure control (AEC) *Adjustment of mA and/or kV according to patient size *Use of iterative reconstruction technique *CT scan done according to ALARA, or ALARA/IMAGE GENTLY FINDINGS: The visualized lung bases are clear. Status post cholecystectomy. The liver, spleen, pancreas, and adrenal glands are normal. The kidneys are normal bilaterally. No hydronephrosis or hydroureter is seen. No urinary tract calculi are seen. Urinary bladder is normal in appearance. Scattered colonic diverticula are seen without bowel obstruction or inflammation. Postoperative changes in the right lower quadrant suggest prior appendectomy. There is a small fat-containing umbilical hernia. Additional small fat-containing ventral hernia is seen at the midline superior to the umbilicus. Mild atherosclerotic calcifications are seen. No lymphadenopathy or ascites is seen. Degenerative changes are seen in the spine. IMPRESSION: No acute intra-abdominal pathology. Electronically signed by: Patrice Mcfarlane MD (10/22/2020 9:59 PM) MARY (EDUIN GARCIA APRN) Radiology/Procedures: [place] [address] IMAGING REPORT Signed PATIENT: BETH LERNER ACCOUNT: [id number] : 1970 LOCATION: ER AGE: 49 SEX: F EXAM STATUS: REG ER ORD. PHYSICIAN: EDUIN GARCIA APRN REASON: abd pain PROCEDURE: CT ABDOMEN PELVIS WO CONTRAST Exam Date: 10/22/2020 9:[address] ABDOMEN+PELVIS WO Indication: Reason: abd pain / Spl. Instructions: / History: . TECHNIQUE: CT examination of the abdomen and pelvis was performed without oral or intravenous contrast. One or more of the following dose reduction techniques were utilized: *Automated exposure control (AEC) *Adjustment of mA and/or kV according to patient size *Use of iterative reconstruction technique *CT scan done according to ALARA, or ALARA/IMAGE GENTLY FINDINGS: The visualized lung bases are clear. Status post cholecystectomy. The liver, spleen, pancreas, and adrenal glands are normal. The kidneys are normal bilaterally. No hydronephrosis or hydroureter is seen. No urinary tract calculi are seen. Urinary bladder is normal in appearance. Scattered colonic diverticula are seen without bowel obstruction or inflammation. Postoperative changes in the right lower quadrant suggest prior appendectomy. There is a small fat-containing umbilical hernia. Additional small fat-containing ventral hernia is seen at the midline superior to the umbilicus. Mild atherosclerotic calcifications are seen. No lymphadenopathy or ascites is seen. Degenerative changes are seen in the spine. IMPRESSION: No acute intra-abdominal pathology. Electronically signed by: Patrice Mcfarlane MD (10/22/2020 9:59 PM) MARY DICTATED AND SIGNED BY: PATRICE MCFARLANE MD DATE: 10/22/20 3143 CC: EMERGENCY,DEPARTMENT; EDUIN GARCIA APRN; PCP,UNKNOWN ~MTH0 0 (MENDEZ VALDOVINOS MD) Heart Score: C/O Chest Pain: No Risk Factors: Risk Factors: DM, Current or recent (<one month) smoker, HTN, HLP, family history of CAD, obesity. Risk Scores: Score 0 - 3: 2.5% MACE over next 6 weeks - Discharge Home Score 4 - 6: 20.3% MACE over next 6 weeks - Admit for Clinical Observation Score 7 - 10: 72.7% MACE over next 6 weeks - Early Invasive Strategies (EDUIN GARCIA APRN) Course & Med Decision Making: Course & Med Decision Making Pertinent Labs and Imaging studies reviewed. (See chart for details) [] 49-year-old female presents with left lower abdominal pain, nausea and vomiting. Patient has history of colitis and diverticulosis. CT of abdomen and pelvis ordered to rule out any acute abnormalities. Patient given 1 mg of Dilaudid, 4 mg Zofran, normal saline bolus. CT of abdomen is negative for acute abnormality. All labs unremarkable. UA is negative for infection. Patient discharged with follow-up with GI. Patient is experiencing an episode of her chronic abdominal pain. Patient has Zofran at home to take for nausea. Patient should return to emergency room if symptoms or pain worsens otherwise follow-up with GI and PCP Saturday. Patient is hemodynamically stable upon discharge. (EDUIN GARCIA APRN) Course & Med Decision Making ASSESSMENT: 1. A 49-year-old female with significant left lower quadrant abdominal pain. No evidence of obstruction or diverticular disease. I believe her symptoms are functional. However does have a history of ulcerative colitis/inflammatory. 2. Recent diarrhea, etiology is unclear. She has not had any diarrhea since she has been up here. 3. Hx.Hypokalemia. 4. Obesity. 5. Underlying depression. 6. Anxiety. 7. Most likely irritable bowel syndrome. 8. Essential hypertension. 9. Questionable compliance of meds. 10. Mild Anemia Hgb 10.8 (MENDEZ VALDOVINOS MD) Zacarias Disclaimer: Zacarias Disclaimer: This electronic medical record was generated, in whole or in part, using a voice recognition dictation system. (EDUIN GARCIA APRN) Departure Departure: Impression: Primary Impression: Chronic abdominal pain Additional Impression: Nausea & vomiting Qualified Codes: R11.2 - Nausea with vomiting, unspecified Disposition: HOME / SELF CARE / HOMELESS Condition: STABLE Referrals: PCP,UNKNOWN (PCP) Patient Instructions: Abdominal Pain Additional Instructions: CT of your abdomen was negative for acute abnormality. All of your labs were unremarkable. Your UA was negative for infection. Return to the emergency room if you have worsening symptoms or concerns. Otherwise follow-up with your PCP next week for further management. EMERGENCY DEPARTMENT GENERAL DISCHARGE INSTRUCTIONS Thank you for coming to [facility] (ED) today and trusting us with you care. We trust that you had a positivie experience in our Emergency Department. If you wish to speak to the department management, you may call the director at [phone]. YOUR FOLLOW UP INSTRUCTIONS ARE FOLLOWS: 1. Do you have a private Doctor? If you do not have a private doctor, please ask for a resource list of physicians or clinics that may be able to assist you with follow up care. 2. The Emergency Physician has interpreted your x-rays. The X-Ray specialist will also review them. If there is a change in the findings, you will be notified in 48 hours when at all possible. 3. A lab test or culture has been done, your results will be reviewed and you will be notified if you need a change in treatment. ADDITIONAL INSTRUCTIONS AND INFORMATION: 1. Your care today has been supervised by a physician who is specially trained in emergency care. Many problems require more than one evaluation for a complete diagnosis and treatment. We recommend that you schedule your follow up appointment as recommended to ensure complete treatment of you illness or injury. If you are unable to obtain follow up care and continue to have a problem, or if your condition worsens, we recommend that you return to the ED. 2. We are not able to safely determine your condition over the phone nor are we able to give sound medical advice over the phone. For these safety reasons, if you call for medical advice we will ask you to come to the ED for further evaluation. 3. If you have any questions regarding these discharge instructions please call the ED at [phone]. SAFETY INFORMATION: In the interest of safety, wellness, and injury prevention; we encourage you to wear your sealbelt, if you smoke; quite smoking, and we encourage family to use a protective helmet for bicycling and other sporting events that present an increased risk for head injury. IF YOUR SYMPTOMS WORSEN OR NEW SYMPTOMS DEVELOP, OR YOU HAVE CONCERNS ABOUT YOUR CONDITION; OR IF YOUR CONDITION WORSENS WHILE YOU ARE WAITING FOR YOUR FOLLOW UP APPOINTMENT; EITHER CONTACT YOUR PRIMARY CARE DOCTOR, THE PHYSICIAN WHOSE NAME AND NUMBER YOU WERE GIVEN, OR RETURN TO THE ED IMMEDIATELY. Attending Signature Attending Signature I have participated in the care of this patient and I have reviewed and agree with all pertinent clinical information above including history, exam, and recommendations. (MENDEZ VALDOVINOS MD) EDUIN GARCIA APRN Oct 22, 2020 21:19 MENDEZ VALDOVINSO MD Oct 25, 2020 00:30
[2020-10-22 21:54] LABS: BASO # 0.1 x10^3/uL (0.0-0.2); BASO % 1 % (0-3); EOS # 0.1 x10^3/uL (0.0-0.7); EOS % 1 % (0-3); HEMATOCRIT 33.6 % (36.0-47.0); HEMOGLOBIN 10.8 g/dL (12.0-15.5); LYMPH # 0.9 x10^3/uL (1.0-4.8); LYMPH % 8 % (24-48); MEAN CORPUSCULAR HEMOGLOBIN 25 pg (25-35); MEAN CORPUSCULAR HGB CONC 32 g/dL (31-37); MEAN CORPUSCULAR VOLUME 79 fL (79-100); MONO # 0.9 x10^3/uL (0.0-1.1); MONO % 8 % (0-9); NEUT # 9.1 x10^3uL (1.8-7.7); NEUT % 83 % (31-73); PLATELET COUNT 295 x10^3/uL (140-400); RED BLOOD COUNT 4.26 x10^6/uL (3.50-5.40); RED CELL DISTRIBUTION WIDTH 19.4 % (11.5-14.5); WHITE BLOOD COUNT 10.9 x10^3/uL (4.0-11.0)
[2020-10-22 21:56] LABS: BACTERIA,URINE 0 /HPF (0-FEW); BILIRUBIN,URINE NEG (NEG); CLARITY,URINE CLEAR; COLOR,URINE YELLOW; GLUCOSE,URINE NEG (NEG); NITRITE,URINE NEG (NEG); RBC,URINE 0 /HPF (0-2); SQUAMOUS EPITHELIAL CELL,UR OCC /LPF; UROBILINOGEN,URINE 0.2 mg/dL (0.2 mg/dL)
--- NOTE | 2020-10-22 22:01 | RAD ---
Exam Date: 10/22/2020 9:[address] ABDOMEN+PELVIS WO Indication: Reason: abd pain / Spl. Instructions: / History: . TECHNIQUE: CT examination of the abdomen and pelvis was performed without oral or intravenous contra st. One or more of the following dose reduction techniques were utilized: *Automated exposure control (AEC) *Adjustment of mA and/or kV according to patient size *Use of iterative reconstruction technique *CT scan done according to ALARA, or ALARA/IMAGE GENTLY FINDINGS: The visualized lung bases are clear. Status post cholecystectomy. The liver, spleen, pancreas, and adrenal glands are normal. The kidneys are normal bilaterally. No hydronephrosis or hydroureter is seen. No urinary tract calc amor are seen. Urinary bladder is normal in appearance. Scattered colonic diverticula are seen without bowel obstruction or inflammation. Postoperative santiago ges in the right lower quadrant suggest prior appendectomy. There is a small fat-containing umbilica l hernia. Additional small fat-containing ventral hernia is seen at the midline superior to the umbi licus. Mild atherosclerotic calcifications are seen. No lymphadenopathy or ascites is seen. Degenerative changes are seen in the spine. IMPRESSION: No acute intra-abdominal pathology. Electronically signed by: Moy Mcfarlane MD (10/22/2020 9:59 PM) [facility]
[2020-10-22 22:09] LABS: CREATININE 0.8 mg/dL (0.6-1.0); GFR 75.6; POTASSIUM 3.3 mmol/L (3.5-5.1)
[2020-10-22 22:50] VITALS: BP 140/95
--- NOTE | 2020-10-23 00:01 | RAD ---
Study: XR ABDOMEN COMP ACUTE Indication: Pain. Comparison: CT abdomen/pelvis 10/22/2020; abdominal series 08/23/2020 Findings: Similar aeration pattern of the lungs from the prior. Unchanged cardiomediastinal silhouette and sylvain . Mild tortuosity of the aorta. The bowel gas pattern is nonobstructive. Small volume colonic stool burden. No radiographic evidence for pneumoperitoneum. Cholecystectomy clips. Sigmoid curvature of the spinal column. Impression: Nonobstructive bowel gas pattern. No acute radiographic abnormality of the chest. Electronically signed by: RO TRUJILLO MD (10/22/2020 11:58 PM) [facility]
--- NOTE | 2020-10-23 06:40 | EKG ---
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
== END 2020-10-22 23:33 | disposition home or self-care (01) ==
LOC: ER 20:20
DX: R10.32 Left lower quadrant pain (principal); R11.2 Nausea with vomiting, unspecified; Z90.49 Acquired absence of other specified parts of digestive tract; Z88.1 Allergy status to other antibiotic agents
CPT/HCPCS: 36415; 74022; 74176; 80048; 81001; 82150; 83605; 83690; 85025; 87040; 93005; 96361; 96374; 96375; 96376; 99285; J1170; J2405; J7030

== ENCOUNTER 2020-10-24 19:20 | Emergency (ER) | payer BC ==
[~2020-10-24] VITALS: Ht 162.6 cm; Wt 93.4 kg
[~2020-10-24 19:20] MED LIST changes: +HYDR-2759 PO; +SULF500T36 PO
[2020-10-24] MEDS ORDERED: PROM25SU33 RC (19:40)
--- NOTE | 2020-10-24 19:40 | PHYS DOC ---
Past History Past Medical History: Anemia, Anxiety, Constipation, Depression, Diabetes, Fibromyalgia, GERD, High Cholesterol, Hypertension, IBS, Kidney Stones, Other Additional Past Medical Histor: ulcerative colitis, colon polyps; chronic pain issues Past Surgical History: Appendectomy, Cholecystectomy, Hysterectomy, Other Additional Past Surgical Histo: umbilical hernia repair, STERNUM REPAIR Smoking: Cigarettes Alcohol Use: Occasionally Drug Use: None General Adult EDM: Chief Complaint: ABDOMINAL PAIN HPI: HPI: 49-year-old female with past medical history of chronic abdominal pain with associated nausea and vomiting presents with report of continued abdominal discomfort as well as diarrhea has been ongoing for the past several days. Patient was recently seen in emergency department on 10/22/20 for same. [facility] reviewed notes patient with normal labs values as well as unremarkable CT abdom en/pelvis. Patient reports she is to follow with her GI specialist tomorrow. Patient reports pain and nausea not well controlled despite using hydrocodone and Zofran ODT. Denies known sick contacts. Denies trauma. Review of Systems: Review of Systems: Constitutional: Denies fever or chills Eyes: Denies redness or eye pain HENT: Denies nasal congestion or sore throat Respiratory: Denies cough or shortness of breath Cardiovascular: Denies chest pain or palpitations GI: Reports intractable abdominal pain and nausea : Denies dysuria or hematuria Musculoskeletal: Denies back pain or joint pain Integument: Denies rash or skin lesions Neurologic: Denies headache, focal weakness or sensory changes Complete systems were reviewed and found to be within normal limits, except as documented in this note. Allergies: Allergies: Allergies Coded Allergies Type Severity Reaction Last Updated Verified cephalexin Allergy Intermediate "ears burn/rash on neck" 10/22/20 Yes ketorolac Allergy Intermediate Hives 10/22/20 Yes prochlorperazine Allergy Intermediate 10/22/20 Yes Physical Exam: PE: Constitutional: Well developed, well nourished, no acute distress, non-toxic appearance HENT: Normocephalic, atraumatic, mucous membranes moist Eyes: Conjunctiva normal, no discharge Neck: Normal range of motion, supple Lungs & Thorax: No respiratory distress, equal chest rise and fall Abdomen: Soft, mild diffuse tenderness, no guarding or rebound tenderness Skin: Warm, dry, no erythema, no rash Back: No tenderness, no CVA tenderness Neurologic: Alert and oriented X 3, no focal deficits noted Psychologic: Affect normal, judgment normal EKG: EKG: [] Radiology/Procedures: Radiology/Procedures: [] Heart Score: C/O Chest Pain: N/A Course & Med Decision Making: Course & Med Decision Making Patient with chronic abdominal pain and nausea presents with report of intractable pain and nausea despite being on hydrocodone and Zofran ODT. Patient was seen on 10/22/20 with laboratory evaluation and CT imaging that noted no acute process. Patient does have history of chronic pain and nausea. Patient advised labs and repeat imaging are not warranted at this time given recent full evaluation. Patient reports she has an appointment to see her GI specialist tomorrow. Symptomatic treatment provided with IM 1 mg Dilaudid as well as Zofran ODT tablet. Patient advised to continue fluid hydration. Patient stable for discharge with outpatient follow-up with PCP/GI. Discussed findings and plan with patient, who acknowledges understanding and agreement. Zacarias Disclaimer: Zacarias Disclaimer: This electronic medical record was generated, in whole or in part, using a voice recognition dictation system. Departure Departure: Impression: Primary Impression: Chronic abdominal pain Additional Impression: Chronic nausea Disposition: HOME / SELF CARE / HOMELESS Condition: STABLE Referrals: PCP,UNKNOWN (PCP) Patient Instructions: Abdominal Pain (Nonspecific), Chronic Pain, Nausea, Adult, [id number] Additional Instructions: Increase fluid hydration. Follow closely with your GI specialist. Take previously prescribed pain and nausea medication as directed. Scripts Promethazine Hcl (PROMETHAZINE HCL) 25 Mg Supp.rect 25 MG RC TID PRN PRN for NAUSEA, #10 SUPP.RECT Prov: JUSTO STUART DO 10/24/20 JUSTO STUART DO Oct 24, 2020 19:40
[2020-10-24] MEDS ORDERED: ONDANSETRON ODT 4 MG TAB.RAPDIS PO ONE (19:45)
[2020-10-24] MEDS ORDERED: HYDROmorphone PF 1 MG/ML DISP.SYRIN IM ONE (19:45)
[2020-10-24 20:10] VITALS: BP 155/100
== END 2020-10-24 20:14 | disposition home or self-care (01) ==
LOC: ER 19:20
DX: G89.29 Other chronic pain (principal); R10.84 Generalized abdominal pain; R11.2 Nausea with vomiting, unspecified; R19.7 Diarrhea, unspecified; E11.9 Type 2 diabetes mellitus without complications; M79.7 Fibromyalgia; K21.9 Gastro-esophageal reflux disease without esophagitis; E78.00 Pure hypercholesterolemia, unspecified; I10 Essential (primary) hypertension; K58.9 Irritable bowel syndrome, unspecified; F17.210 Nicotine dependence, cigarettes, uncomplicated; Z87.442 Personal history of urinary calculi; Z86.2 Personal history of diseases of the blood and blood-forming organs and certain disorders involving the immune mechanism; Z90.89 Acquired absence of other organs; Z90.49 Acquired absence of other specified parts of digestive tract; Z90.710 Acquired absence of both cervix and uterus; Z88.1 Allergy status to other antibiotic agents; Z88.8 Allergy status to other drugs, medicaments and biological substances
CPT/HCPCS: 96372; 99283; J1170; Q0162

== ENCOUNTER 2020-11-02 21:46 | Emergency (ER) | payer BC ==
[~2020-11-02] VITALS: Ht 162.6 cm; Wt 96.5 kg
[~2020-11-02 21:46] MED LIST changes: +PROM25SU33 RC
[2020-11-02] MEDS ORDERED: PROM25SU33 RC (22:08)
--- NOTE | 2020-11-02 22:08 | PHYS DOC ---
Past History Past Medical History: Anemia, Anxiety, Constipation, Depression, Diabetes, Fibromyalgia, GERD, High Cholesterol, Hypertension, IBS, Kidney Stones, Other Additional Past Medical Histor: ulcerative colitis, colon polyps; chronic pain issues Past Surgical History: Appendectomy, Cholecystectomy, Hysterectomy, Other Additional Past Surgical Histo: umbilical hernia repair, STERNUM REPAIR Smoking: Cigarettes Alcohol Use: Occasionally Drug Use: None General Adult EDM: Chief Complaint: ABDOMINAL PAIN HPI: HPI: Patient is a [age] year old [sex] who presents with [] Review of Systems: Review of Systems: Constitutional: Denies fever or chills Eyes: Denies change in visual acuity HENT: Denies nasal congestion or sore throat Respiratory: Denies cough or shortness of breath Cardiovascular: Denies chest pain or edema GI: Denies abdominal pain, nausea, vomiting, bloody stools or diarrhea : Denies dysuria Musculoskeletal: Denies back pain or joint pain Integument: Denies rash Neurologic: Denies headache, focal weakness or sensory changes Endocrine: Denies polyuria or polydipsia Lymphatic: Denies swollen glands Psychiatric: Denies depression or anxiety Allergies: Allergies: Allergies Coded Allergies Type Severity Reaction Last Updated Verified cephalexin Allergy Intermediate "ears burn/rash on neck" 10/22/20 Yes ketorolac Allergy Intermediate Hives 10/22/20 Yes prochlorperazine Allergy Intermediate 10/22/20 Yes Physical Exam: PE: Constitutional: Well developed, well nourished, no acute distress, non-toxic appearance. [] HENT: Normocephalic, atraumatic, bilateral external ears normal, oropharynx moist, no oral exudates, nose normal. [] Eyes: PERRLA, EOMI, conjunctiva normal, no discharge. [] Neck: Normal range of motion, no tenderness, supple, no stridor. [] Cardiovascular:Heart rate regular rhythm, no murmur [] Lungs & Thorax: Bilateral breath sounds clear to auscultation [] Abdomen: Bowel sounds normal, soft, no tenderness, no masses, no pulsatile masses. [] Skin: Warm, dry, no erythema, no rash. [] Back: No tenderness, no CVA tenderness. [] Extremities: No tenderness, no cyanosis, no clubbing, ROM intact, no edema. [] Neurologic: Alert and oriented X 3, normal motor function, normal sensory function, no focal deficits noted. [] Psychologic: Affect normal, judgement normal, mood normal. [] EKG: EKG: [] Radiology/Procedures: Radiology/Procedures: [] Heart Score: C/O Chest Pain: N/A Course & Med Decision Making: Course & Med Decision Making Pertinent Labs and Imaging studies reviewed. (See chart for details) [] Dragon Disclaimer: Dragon Disclaimer: This electronic medical record was generated, in whole or in part, using a voice recognition dictation system. Departure Departure: Impression: Primary Impression: Chronic abdominal pain Additional Impressions: Chronic nausea Chronic diarrhea Disposition: HOME / SELF CARE / HOMELESS Condition: STABLE Referrals: PCP,UNKNOWN (PCP) Patient Instructions: Chronic Diarrhea, Chronic Pain, Chronic Pain Management, Diet for Diarrhea, Adult, Nausea, Adult, [id number] Additional Instructions: Please follow with GI and/or Pain management for further evaluation and treatment of your chronic pain. Unfortunately the Emergency Department is not an appropriate facility to treat chronic conditions. Call Dr. Joseph Floyd (pain management) and schedule an appointment to be evaluated for further pain management issues. [id number] [facility], [address] [place] [address] Scripts Promethazine Hcl (PROMETHAZINE HCL) 25 Mg Supp.rect 25 MG RC Q8HRS PRN for NAUSEA, #10 SUPP.RECT Prov: JUSTO STUART DO 11/02/20 JUSTO STUART DO Nov 02, 2020 22:08
[2020-11-02] MEDS ORDERED: ONDANSETRON PF 4 MG/2 ML VIAL. IM ONE (22:15)
[2020-11-02] MEDS ORDERED: HYDROmorphone PF 1 MG/ML DISP.SYRIN IM ONE (22:15)
[2020-11-02 22:44] VITALS: BP 151/100
== END 2020-11-02 22:45 | disposition home or self-care (01) ==
LOC: ER 21:46
DX: K52.9 Noninfective gastroenteritis and colitis, unspecified (principal); G89.29 Other chronic pain; R10.32 Left lower quadrant pain; R11.2 Nausea with vomiting, unspecified; F41.9 Anxiety disorder, unspecified; E11.9 Type 2 diabetes mellitus without complications; M79.7 Fibromyalgia; K21.9 Gastro-esophageal reflux disease without esophagitis; E78.00 Pure hypercholesterolemia, unspecified; I10 Essential (primary) hypertension; K58.9 Irritable bowel syndrome, unspecified; F17.210 Nicotine dependence, cigarettes, uncomplicated; Z87.442 Personal history of urinary calculi; Z90.89 Acquired absence of other organs; Z90.49 Acquired absence of other specified parts of digestive tract; Z90.710 Acquired absence of both cervix and uterus; Z86.2 Personal history of diseases of the blood and blood-forming organs and certain disorders involving the immune mechanism; Z88.1 Allergy status to other antibiotic agents; Z88.8 Allergy status to other drugs, medicaments and biological substances
CPT/HCPCS: 96372; 99284; J1170; J2405

== ENCOUNTER 2020-11-04 19:09 | Emergency (ER) | payer BC ==
[~2020-11-04] VITALS: Ht 162.6 cm; Wt 99.0 kg
[2020-11-04] MEDS ORDERED: IOHEXOL 300 MG/ML 75 ML VIAL. IV ONE (19:45)
[2020-11-04] MEDS ORDERED: diphenhydrAMINE 50 MG/ML VIAL IVP ONE (19:45)
--- NOTE | 2020-11-04 19:54 | PHYS DOC ---
Past History Past Medical History: Anemia, Anxiety, Constipation, Depression, Diabetes, Fibromyalgia, GERD, High Cholesterol, Hypertension, IBS, Kidney Stones, Other Additional Past Medical Histor: ulcerative colitis, colon polyps; chronic pain issues, iron def. anemia Past Surgical History: Appendectomy, Cholecystectomy, Hysterectomy, Other Additional Past Surgical Histo: umbilical hernia repair, STERNUM REPAIR Smoking: Cigarettes Alcohol Use: Occasionally Drug Use: None Adult General Chief Complaint Chief Complaint: NAUSEA/VOMITING/DIARRHEA HPI HPI Patient is a 49-year-old female with a past medical history significant for diabetes, chronic abdominal pain and constipation, IBS, fibromyalgia, GERD, anxiety and depression who presents to the emergency department with a chief complaint of left lower quadrant abdominal pain. States that this has been going on really for years, but over the last couple of months it is gotten more constant, 7 out of 10, dull and aching in nature with no obvious aggravating or alleviating factors other than her Percocet which she takes at home. States she has a colonoscopy scheduled next week. Denies any recent traumas, travels, fevers, chest pain, shortness of breath, nausea, diarrhea, dysuria, hematuria or blood in the stool. States has had some nausea but had vomited. Denies any Covid/flu/cold exposures that she is aware of. Denies any alcohol or drug use. Review of Systems Review of Systems All other systems were reviewed and found to be within normal limits, except as documented in this note. Current Medications Current Medications Current Medications Medications (Trade) Dose Ordered Sig/Enrike Start Time Stop Time Status Last Admin Dose Admin Diphenhydramine HCl (Benadryl) 12.5 mg 1X ONCE 11/04/20 19:45 11/04/20 19:46 UNV Fentanyl Citrate (Fentanyl 2ml Vial) 25 mcg 1X ONCE 11/04/20 19:45 11/04/20 19:46 UNV Iohexol (Omnipaque 300 Mg/ml) 75 ml 1X ONCE 11/04/20 19:45 11/04/20 19:46 UNV Allergies Allergies Allergies Coded Allergies Type Severity Reaction Last Updated Verified cephalexin Allergy Intermediate "ears burn/rash on neck" 10/22/20 Yes ketorolac Allergy Intermediate Hives 10/22/20 Yes prochlorperazine Allergy Intermediate 10/22/20 Yes Physical Exam Physical Exam Constitutional: Well developed, well nourished, no acute distress, non-toxic appearance. [] HENT: Normocephalic, atraumatic, bilateral external ears normal, oropharynx moist, no oral exudates, nose normal. [] Eyes: conjunctiva normal, no discharge. [] Neck: Normal range of motion, no tenderness, supple, no stridor. [] Cardiovascular:Heart rate regular rhythm, no murmur [] Lungs & Thorax: Bilateral breath sounds clear to auscultation [] Abdomen: soft, left lower quadrant, no masses, no pulsatile masses. [] Skin: Warm, dry, no erythema, no rash. [] Back: no CVA tenderness. [] Extremities: No tenderness, no cyanosis, no clubbing, ROM intact, no edema. [] Neurologic: Alert and oriented X 3, no focal deficits noted. [] Psychologic: Affect normal, judgement normal, mood normal. [] EKG EKG [] Radiology/Procedures Radiology/Procedures [] Heart Score C/O Chest Pain: No Risk Factors: Risk Factors: DM, Current or recent (<one month) smoker, HTN, HLP, family history of CAD, obesity. Risk Scores: Risk Factors: DM, Current or recent (<one month) smoker, HTN, HLP, family hi story of CAD, obesity. Course & Med Decision Making Course & Med Decision Making Patient is a 49-year-old female who presents with a chief complaint of acute on chronic left lower quadrant pain Vital signs notable for mild tachycardia and hypertension which improved on visit. Physical exam noted above. Laboratory analysis notable for microcytic anemia, which patient has chronically and takes iron infusions for. Laboratory analysis otherwise unremarkable. Negative . Urinalysis not suggestive of UTI. CT of the abdomen pelvis with no acute process identified. On reassessment patient's vital signs improved and patient's pain improved. Patient did request a dose of Percocet before going home so she does not have to use hers. Offered patient admission to the hospital for pain control despite relatively normal work-up since she was asking for further pain medication. Patient stated that she did not want to stay in the hospital and just wanted extra dose of pain medicine so she did not have to use her is when she goes home. Given oral dose of Percocet. Advised to follow-up immediately with primary care physician on Saturday morning as well as her GI doc and to keep her appointment on Saturday for colonoscopy. Gave strict return precautions to the ED. Patient grateful, verbalized understanding and agreed with plan of discharge. Dragon Disclaimer Dragon Disclaimer This electronic medical record was generated, in whole or in part, using a voice recognition dictation system. Departure Departure: Impression: Primary Impression: Left lower quadrant abdominal pain Additional Impressions: Microcytic anemia Hypertension Disposition: HOME / SELF CARE / HOMELESS Condition: GOOD Referrals: PCP,UNKNOWN (PCP) PABLO LUA MD Patient Instructions: Abdominal Pain (Nonspecific), Anemia, FAQs, Iron Deficiency Anemia Additional Instructions: Thank you for coming into the emergency department tonight and allowing us to take care of you. Please read all the attached information above to go back over the things we discussed. Please continue to take your Percocet at home as prescribed, adding Benadryl as discussed as a pain adjunct. Please try to stay away from aspirin, ibuprofen and naproxen as you have been endorsed allergy/adverse reaction to these. We discussed staying in the hospital overnight for pain control, but you stated that you did not want to stay in the hospital and would prefer to just go on home after you are extra dose of Percocet. Please call your primary care physician first thing Saturday to update on your ED visit and set up a follow-up as soon as possible. Please also call your GI doctor Saturday as you are having a colonoscopy on Saturday and they wanted no about your ED visit. Please come back to the emerg ency department with new or concerning symptoms as we discussed. Problem Qualifiers CECIL SUNG MD Nov 04, 2020 19:54
[2020-11-04] MEDS ORDERED: ONDANSETRON PF 4 MG/2 ML VIAL. IVP ONE (20:00)
[2020-11-04 20:22] LABS: BASO % 0 % (0-3); EOS % 0 % (0-3); HEMATOCRIT 30.9 % (36.0-47.0); HEMOGLOBIN 9.7 g/dL (12.0-15.5); LYMPH # 0.5 x10^3/uL (1.0-4.8); LYMPH % 5 % (24-48); MEAN CORPUSCULAR HEMOGLOBIN 25 pg (25-35); MEAN CORPUSCULAR HGB CONC 31 g/dL (31-37); MEAN CORPUSCULAR VOLUME 79 fL (79-100); MONO # 0.5 x10^3/uL (0.0-1.1); MONO % 5 % (0-9); NEUT # 9.6 x10^3uL (1.8-7.7); NEUT % 90 % (31-73); PLATELET COUNT 307 x10^3/uL (140-400); RED BLOOD COUNT 3.89 x10^6/uL (3.50-5.40); RED CELL DISTRIBUTION WIDTH 20.4 % (11.5-14.5); WHITE BLOOD COUNT 10.6 x10^3/uL (4.0-11.0)
[2020-11-04 20:34] LABS: CALCIUM 8.4 mg/dL (8.5-10.1); CREATININE 0.8 mg/dL (0.6-1.0); GFR 75.6; POTASSIUM 3.5 mmol/L (3.5-5.1)
[2020-11-04 20:39] LABS: ALBUMIN 3.1 g/dL (3.4-5.0); ALBUMIN/GLOBULIN RATIO 0.9 (1.0-1.7); TOTAL BILIRUBIN 0.1 mg/dL (0.2-1.0); TOTAL PROTEIN 6.5 g/dL (6.4-8.2)
[2020-11-04 20:57] LABS: BILIRUBIN,URINE NEG (NEG); CLARITY,URINE CLEAR; COLOR,URINE YELLOW; GLUCOSE,URINE NEG (NEG)
[2020-11-04 20:58] LABS: BACTERIA,URINE 0 /HPF (0-FEW); NITRITE,URINE NEG (NEG); RBC,URINE 0 /HPF (0-2); SQUAMOUS EPITHELIAL CELL,UR OCC /LPF; UROBILINOGEN,URINE 0.2 mg/dL (0.2 mg/dL); WBC,URINE RARE /HPF (0-4)
--- NOTE | 2020-11-04 21:16 | RAD ---
Exam: CT of abdomen and pelvis with contrast INDICATION: Left lower quadrant pain TECHNIQUE: Sequential axial images through the abdomen and pelvis obtained following the administrati on of 75 mL of Isovue-370 IV contrast. Sagittal and coronal reformatted images were reconstructed fro m the axial data and reviewed. Exposure: One or more of the following in the visualized dose reduction techniques were utilized for this examination: 1. Automated exposure control 2. Adjustment of the MA and/or KV according to patient size 3. Use of iterative of reconstructive technique Comparisons: 10/22/2020 FINDINGS: Heart size is normal. No pericardial effusion. Visualized lung bases are clear. No pleural effusion. Liver, spleen, pancreas, and adrenals are unremarkable. Gallbladder surgically absent. Kidneys demonstrate symmetric enhancement. No perinephric inflammation or hydronephrosis. No renal or ureteral calculi are identified. Bladder is partially distended and not well evaluated. Uterus is absent. No abnormal adnexal mass. Large and small bowel are unremarkable. No free intra-abdominal air or fluid. No obstruction. Abdominal aorta has a normal course and caliber. Abdominal vasculature is patent. No enlarged intra-abdominal lymph nodes are identified. No suspicious osseous lesions or acute fractures. IMPRESSION: No acute process identified within the abdomen or pelvis. Electronically signed by: Anna Liu MD (11/04/2020 9:14 PM) NICK
[2020-11-04 21:28] LABS: % LYMPHS 5 % (24-48); % MONOS 4 % (0-10); % SEGS 91 % (35-66); PLT ESTIMATE ADEQUATE (ADEQUATE)
[2020-11-04] MEDS ORDERED: oxyCODONE/APAP 5/325 1 TAB TABLET PO ONE (21:30)
[2020-11-04 21:40] VITALS: BP 162/90
== END 2020-11-04 21:54 | disposition home or self-care (01) ==
LOC: ER 19:09
DX: D50.9 Iron deficiency anemia, unspecified (principal); I10 Essential (primary) hypertension; K21.9 Gastro-esophageal reflux disease without esophagitis; E78.5 Hyperlipidemia, unspecified; F17.210 Nicotine dependence, cigarettes, uncomplicated; Z90.49 Acquired absence of other specified parts of digestive tract; Z88.1 Allergy status to other antibiotic agents; Z90.710 Acquired absence of both cervix and uterus; Z87.442 Personal history of urinary calculi
CPT/HCPCS: 36415; 74177; 80053; 81001; 81025; 83690; 85007; 85025; 96374; 96375; 99285; J1200; J2405; J3010; Q9967

== ENCOUNTER 2020-11-27 22:04 | Emergency (ER) | payer BC ==
[~2020-11-27] VITALS: Ht 162.6 cm; Wt 99.0 kg
[2020-11-27 22:10] VITALS: BP 172/108
--- NOTE | 2020-11-27 22:38 | PHYS DOC ---
Past History Past Medical History: Anemia, Anxiety, Constipation, Depression, Diabetes, Fibromyalgia, GERD, High Cholesterol, Hypertension, IBS, Kidney Stones, Other Additional Past Medical Histor: ulcerative colitis, colon polyps; chronic pain issues, iron def. anemia Past Surgical History: Appendectomy, Cholecystectomy, Hysterectomy, Other Additional Past Surgical Histo: umbilical hernia repair, STERNUM REPAIR Smoking: Cigarettes Alcohol Use: None Drug Use: None General Adult EDM: Chief Complaint: ABDOMINAL PAIN HPI: HPI: ".. I am still having abdomen pain.. ",, Still have nausea and vomiting... " I had some diarrhea... Patient is a 50 year old female who presents with above hx and complaints chronic lower Lt. abdomen pain. Patient has a history of chronic left lower abdomen pain and colitis. Patient has past medical history of diabetes, chronic abdomen pain, constipation, ulcerative colitis, colon polyps, anemia, adhesions, IBS, fibromyalgia, GERD, anxiety, depression, and narcotic seeking behaviors. Patient denies any recent travel. No specific ill contacts. No history of fever or chills, some complaints of nausea. Patient complains she has had a loose stool or diarrhea. Patient denies any alcohol use. Patient has had multiple surgeries including appendectomy cholecystectomy and hysterectomy umbilicus repair and sternal repair. Patient does continue to smoke. Patient denies any illicit drug use. Review of Systems: Review of Systems: Constitutional: Denies fever or chills Eyes: Denies change in visual acuity HENT: Denies nasal congestion or sore throat Respiratory: Denies cough or shortness of breath Cardiovascular: Denies chest pain or edema GI: Complains of abdominal pain, nausea, vomiting, and diarrhea : Denies dysuria Musculoskeletal: Denies back pain or joint pain Integument: Denies rash Neurologic: Denies headache, focal weakness or sensory changes Endocrine: Denies polyuria or polydipsia Lymphatic: Denies swollen glands Psychiatric: Denies depression or anxiety Family History: Family History: Noncontributory to presentation Current Medications: Current Meds: See nursing for home meds Allergies: Allergies: Allergies Coded Allergies Type Severity Reaction Last Updated Verified cephalexin Allergy Intermediate "ears burn/rash on neck" 10/22/20 Yes ketorolac Allergy Intermediate Hives 10/22/20 Yes prochlorperazine Allergy Intermediate 10/22/20 Yes Physical Exam: PE: Constitutional: Reports acute distress, non-toxic appearance. [] HENT: Normocephalic, atraumatic, bilateral external ears normal, oropharynx moist, no oral exudates, nose normal. [] Eyes: PERRLA, EOMI, conjunctiva normal, no discharge. [] Neck: Normal range of motion, no tenderness, supple, no stridor. [] Cardiovascular:Heart rate regular rhythm, no murmur [] PMI slightly to the left. Lungs & Thorax: Bilateral breath sounds equal apex with few scattered wheezes on auscultation [.]. Surgical scar Abdomen: Bowel sounds decreased,, soft, left lower quadrant tenderness, no masses, no pulsatile masses. Surgery scars. Distended. Tympanic. Obese. Skin: Warm, dry, no erythema, no rash. [] Back: No tenderness, no CVA tenderness. Scar Extremities: No tenderness, no cyanosis, no clubbing, ROM intact, ankle edema. [ ] Neurologic: Alert and oriented X 3, moves all extremities on request, has distal sensory,, no focal deficits noted. [] Psychologic: Affect anxious, judgement normal, mood normal. [] EKG: EKG: Interpretation EKG shows sinus rhythm 83 bpm. Leftward axis. No findings acute STEMI of contralateral changes. There is baseline artifact. Time of EKG is 23 43 minutes. [] Radiology/Procedures: Radiology/Procedures: My interpretation of acute abdomen film shows previous surgical clips. No free air under the diaphragm. Nonobstructive bowel gas pattern but stool throughout the colon. [] Heart Score: C/O Chest Pain: N/A HEART Score for Chest Pain: HEART Score for Chest Pain Response (Comments) Value History Slighlty/Non-Suspicious 0 ECG Normal 0 Age >45 - < 65 1 Risk Factors 1 or 2 Risk Factors 1 Troponin < Normal Limit 0 Total 2 Risk Factors: Risk Factors: DM, Current or recent (<one month) smoker, HTN, HLP, family history of CAD, obesity. Risk Scores: Score 0 - 3: 2.5% MACE over next 6 weeks - Discharge Home Score 4 - 6: 20.3% MACE over next 6 weeks - Admit for Clinical Observation Score 7 - 10: 72.7% MACE over next 6 weeks - Early Invasive Strategies Course & Med Decision Making: Course & Med Decision Making Pertinent Labs and Imaging studies reviewed. (See chart for details) Patient stay on a clear fluid diet only for the next couple days. No solids. N o milk products. Allow bowel rest. Follow-up primary care. Further narcotic pain meds must be prescribed by primary care. Patient can follow-up with [facility]. Patient return if any concerns. Impression: 1. Chronic left lower abdomen pain 2. History of colitis 3. Anemia hemoglobin 8.6 4. Diabetes 5. Tobacco use 6. Narcotic seeking behaviors [] Dragon Disclaimer: Dragon Disclaimer: This electronic medical record was generated, in whole or in part, using a voice recognition dictation system. Departure Departure: Referrals: PCP,UNKNOWN (PCP) Dragon Disclaimer This chart was dictated in whole or in part using Voice Recognition software in a busy, high-work load, and often noisy Emergency Department environment. It may contain unintended and wholly unrecognized errors or omissions. Dragon Disclaimer This chart was dictated in whole or in part using Voice Recognition software in a busy, high-work load, and often noisy Emergency Department environment. It may contain unintended and wholly unrecognized errors or omissions. MENDEZ VALDOVINOS MD Nov 27, 2020 22:38
[2020-11-27 23:28] LABS: BASO % 0 % (0-3); EOS % 1 % (0-3); HEMATOCRIT 26.6 % (36.0-47.0); HEMOGLOBIN 8.6 g/dL (12.0-15.5); LYMPH # 0.5 x10^3/uL (1.0-4.8); LYMPH % 7 % (24-48); MEAN CORPUSCULAR HEMOGLOBIN 26 pg (25-35); MEAN CORPUSCULAR HGB CONC 32 g/dL (31-37); MEAN CORPUSCULAR VOLUME 81 fL (79-100); MONO # 0.5 x10^3/uL (0.0-1.1); MONO % 8 % (0-9); NEUT # 5.6 x10^3uL (1.8-7.7); NEUT % 84 % (31-73); PLATELET COUNT 266 x10^3/uL (140-400); RED CELL DISTRIBUTION WIDTH 20.2 % (11.5-14.5); WHITE BLOOD COUNT 6.6 x10^3/uL (4.0-11.0)
[2020-11-27] MEDS ORDERED: IV RINGERS SOLUTION,LACTATED 1,000 ML IV SCH (23:30)
[2020-11-27] MEDS ORDERED: FAMOTIDINE 20 MG/2 ML VIAL IVP ONE (23:30)
[2020-11-27] MEDS ORDERED: ONDANSETRON PF 4 MG/2 ML VIAL. IVP ONE (23:30)
[2020-11-27 23:33] LABS: ANION GAP 8 (6-14); BLOOD UREA NITROGEN 19 mg/dL (7-20); CALCIUM 8.6 mg/dL (8.5-10.1); CARBON DIOXIDE 30 mmol/L (21-32); CHLORIDE 101 mmol/L (98-107); CREATININE 0.8 mg/dL (0.6-1.0); GFR 75.3; GLUCOSE 123 mg/dL (70-99); POTASSIUM 3.8 mmol/L (3.5-5.1); SODIUM 139 mmol/L (136-145)
[2020-11-27 23:39] LABS: ALBUMIN 3.3 g/dL (3.4-5.0); ALK PHOS 90 U/L (46-116); ALT (SGPT) 17 U/L (14-59); AMYLASE 36 U/L (25-115); AST (SGOT) 11 U/L (15-37); LIPASE 102 U/L (73-393); TOTAL BILIRUBIN 0.1 mg/dL (0.2-1.0); TOTAL PROTEIN 5.8 g/dL (6.4-8.2)
[2020-11-27 23:41] LABS: DIRECT BILIRUBIN < 0.1 mg/dL (0.0-0.2)
[2020-11-27 23:47] LABS: BACTERIA,URINE 0 /HPF (0-FEW); BILIRUBIN,URINE NEG (NEG); CLARITY,URINE CLEAR; COLOR,URINE YELLOW; GLUCOSE,URINE NEG (NEG); NITRITE,URINE NEG (NEG); RBC,URINE 0 /HPF (0-2); UROBILINOGEN,URINE 0.2 mg/dL (0.2 mg/dL); WBC,URINE RARE /HPF (0-4)
[2020-11-27 23:48] LABS: SQUAMOUS EPITHELIAL CELL,UR OCC /LPF
[2020-11-28] MEDS ORDERED: MORPHINE SULFATE 10 MG/ML SYRINGE. ONE (00:24)
[2020-11-28] MEDS ORDERED: MORPHINE SULFATE 10 MG/ML SYRINGE. SQ ONE (01:00)
--- NOTE | 2020-11-28 03:33 | EKG ---
[address] [address] Test Date: 2020-11-27 Test Time: 23:43:16 Pat Name: BETH LERNER Department: Room: Gender: F Information Developer: : [id number] Requested By: MENDEZ VALDOVINOS Order Number: [id number] Reading MD: Andre Benson Measurements Intervals [place] Rate: 83 P: 28 AK: 178 QRS: -9 QRSD: 88 T: 15 QT: 366 QTc: 436 Interpretive Statements SINUS RHYTHM LEFTWARD AXIS Electronically Signed On 11-29-2020 13:14:18 CDT by Andre Benson
--- NOTE | 2020-11-28 04:37 | RAD ---
Exam: Single PA view of the chest and 2 images single view of the abdomen Indication: Reason: epigastric, and tachy / Spl. Instructions: / History: . Comparison: 08/23/2020 Findings: Stable cardiomediastinal silhouette. Similar bibasilar curvilinear opacities favoring scarring/atelec tasis. No focal airspace consolidation. No pleural effusion or pneumothorax. The bowel gas pattern is nonobstructed. There is a moderate to large colonic stool burden. No radiogr aphic evidence of free intra-abdominal air or suspicious calcifications. No acute osseous findings. Impression: 1. No acute cardiopulmonary process. 2. Nonobstructive bowel gas pattern with moderate to large colorectal stool burden. Electronically signed by: Otto Ho DO (11/28/2020 4:35 AM) [facility]
== END 2020-11-28 03:25 | disposition home or self-care (01) ==
LOC: ER 22:04
DX: R10.32 Left lower quadrant pain (principal); D64.9 Anemia, unspecified; E11.9 Type 2 diabetes mellitus without complications; F17.210 Nicotine dependence, cigarettes, uncomplicated; F41.9 Anxiety disorder, unspecified; F32.9 Major depressive disorder, single episode, unspecified; M79.7 Fibromyalgia; K21.9 Gastro-esophageal reflux disease without esophagitis; E78.00 Pure hypercholesterolemia, unspecified; I10 Essential (primary) hypertension; K58.9 Irritable bowel syndrome, unspecified; Z76.5 Malingerer [conscious simulation]; Z87.442 Personal history of urinary calculi; Z86.2 Personal history of diseases of the blood and blood-forming organs and certain disorders involving the immune mechanism; G89.29 Other chronic pain; Z90.49 Acquired absence of other specified parts of digestive tract; Z90.89 Acquired absence of other organs; Z90.710 Acquired absence of both cervix and uterus; Z88.1 Allergy status to other antibiotic agents; Z88.8 Allergy status to other drugs, medicaments and biological substances
CPT/HCPCS: 36415; 74022; 80048; 80076; 81001; 82150; 82550; 83690; 84484; 85025; 86140; 93005; 96361; 96372; 96374; 96375; 99285; J2270; J2405; J3490; J7120

== ENCOUNTER 2021-02-15 17:31 | Emergency (ER) | payer OTHER, BC ==
[~2021-02-15] VITALS: Ht 162.6 cm; Wt 96.5 kg
[~2021-02-15 17:31] MED LIST changes: +DICY20TA PO; -DICY20TA3 PO; -DULO60CA6 PO; +DULO60CA7 PO
[2021-02-15 18:10] VITALS: BP 137/94
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
== END 2021-02-15 18:39 | disposition left against medical advice (07) ==
LOC: ER 17:31
DX: M54.59 Other low back pain (principal); F41.9 Anxiety disorder, unspecified; F32.9 Major depressive disorder, single episode, unspecified; E11.9 Type 2 diabetes mellitus without complications; M79.7 Fibromyalgia; K21.9 Gastro-esophageal reflux disease without esophagitis; E78.00 Pure hypercholesterolemia, unspecified; K52.89 Other specified noninfective gastroenteritis and colitis; F17.210 Nicotine dependence, cigarettes, uncomplicated; Z87.442 Personal history of urinary calculi; Z86.2 Personal history of diseases of the blood and blood-forming organs and certain disorders involving the immune mechanism; Z90.49 Acquired absence of other specified parts of digestive tract; Z90.89 Acquired absence of other organs; Z90.710 Acquired absence of both cervix and uterus; Z88.1 Allergy status to other antibiotic agents; Z88.8 Allergy status to other drugs, medicaments and biological substances; V89.2XXA Person injured in unspecified motor-vehicle accident, traffic, initial encounter; Y93.I9 Activity, other involving external motion; Y92.89 Other specified places as the place of occurrence of the external cause; Y99.8 Other external cause status
CPT/HCPCS: 99281

== ENCOUNTER 2021-04-20 18:11 | Emergency (ER) | payer BC, OTHER ==
[~2021-04-20] VITALS: Ht 162.6 cm; Wt 96.5 kg
--- NOTE | 2021-04-20 18:24 | PHYS DOC ---
Past History Past Medical History: Anemia, Anxiety, Constipation, Depression, Diabetes, Fibromyalgia, GERD, High Cholesterol, Hypertension, IBS, Kidney Stones, Other Additional Past Medical Histor: ulcerative colitis, colon polyps, chronic pain issues, iron def. anemia Past Surgical History: Appendectomy, Cholecystectomy, Hysterectomy, Other Additional Past Surgical Histo: umbilical hernia repair, STERNUM REPAIR;rectal prolapse; tamika cataracts Smoking: Cigarettes Alcohol Use: Occasionally Drug Use: None General Adult EDM: Chief Complaint: ABDOMINAL PAIN HPI: HPI: ".. I change my insurance around...and now it is difficult to get in to see anyone.. I go to [email or web address].. and will have to find another GI....I use to go to [facility]. and [facility].. but that going to needed to be changed.... I getting a flair in my chronic Lt. lower abdomen pain..... and I ve been having diarrhea with streaks of bright red blood in them...." Patient is a 50 year old FEMALE who presents with above hx and complaints of left lower abdomen pain. Patient states she has chronic abdomen pain and usually is on the left lower quadrant. Patient has not had a recent colonos copy. No recent travel. No specific ill contacts. No history of bad food intake. Patient does have pain meds at home including Tylenol 3 and hydrocodone. But states these are not helping with the pain very much. Patient states she is having frequent diarrhea stools with streaks of red blood in it. Patient denies any recent use of antibiotics. Patient denies any specific ill contacts. Patient has had COVID vaccination x2 has not yet had booster and has had flu vaccination this season. Patient has past medical history at our facility of chronic left lower abdomen pain. Review of Systems: Review of Systems: Constitutional: Denies fever or chills Eyes: Denies change in visual acuity HENT: Denies nasal congestion or sore throat Respiratory: Denies cough or shortness of breath Cardiovascular: Denies chest pain or edema GI: Complaints of Lt lowerabdominal pain, nausea, vomiting,and diarrhea : Denies dysuria Musculoskeletal: Denies back pain or joint pain Integument: Denies rash Neurologic: Denies headache, focal weakness or sensory changes Endocrine: Denies polyuria or polydipsia Lymphatic: Denies swollen glands Psychiatric: Denies depression or anxiety Family History: Family History: Non-contributory Current Medications: Current Meds: See Nursing for home meds Allergies: Allergies: Allergies Coded Allergies Type Severity Reaction Last Updated Verified cephalexin Allergy Intermediate "ears burn/rash on neck" 10/22/20 Yes ketorolac Allergy Intermediate Hives 10/22/20 Yes prochlorperazine Allergy Intermediate 10/22/20 Yes Physical Exam: PE: Constitutional: reports moderate acute distress, non-toxic appearance. [] HENT: Normocephalic, atraumatic, bilateral external ears normal, oropharynx moist, no oral exudates, nose normal. [] Eyes: PERRLA, EOMI, conjunctiva normal, no discharge. [] Neck: Normal range of motion, no tenderness, supple, no stridor. [] Cardiovascular:Heart rate regular rhythm, no murmur [] Lungs & Thorax: Bilateral breath sounds clear to auscultation [] Abdomen: Bowel sounds normal, soft, Lt. lower tenderness, no masses, no pulsatile masses. [] Distended. Surgery scars. Re-bound to Lt. lower abdomen Skin: Warm, dry, no erythema, no rash. [] Back: No tenderness, no CVA tenderness. Surgery scar Extremities: No tenderness, no cyanosis, no clubbing, ROM intact, no edema. [] No psoas sign Neurologic: Alert and oriented X 3, normal motor function, normal sensory function, no focal deficits noted. [] Psychologic: Affect angry, judgement normal, mood normal. [] EKG: EKG: [] Radiology/Procedures: Radiology/Procedures: [][address] [address] IMAGING REPORT Signed PATIENT: BETH LERNER ACCOUNT: [id number] : 1970 LOCATION: ER AGE: 50 SEX: F EXAM STATUS: REG ER ORD. PHYSICIAN: MENDEZ VALDOVINOS MD REASON: LEFT LOWER ABD PAIN. HX HYSTER,APPY,RUBY,DIVERTICULITIS PROCEDURE: ACUTE ABDOMEN SERIES Exam: Acute abdominal series INDICATION: Left lower abdominal pain TECHNIQUE: Frontal view of the chest with upright and supine views the abdomen Comparisons: None FINDINGS: The cardiomediastinal silhouette and pulmonary vessels are within normal limits. The lung and pleural spaces are clear. Air and stool are noted throughout the colon to level the rectum in a nonobstructive bowel gas pattern. No suspicious masses or calcifications. Visualized osseous structures are unremarkable. IMPRESSION: 1. No acute cardiopulmonary process. 2. Nonobstructive bowel gas pattern. Electronically signed by: Anna Griffin MD (04/20/2021 8:40 PM) [facility] DICTATED AND SIGNED BY: ANNA GRIFFIN MD DATE: 04/20/212038 CC: MENDEZ VALDOVINOS MD; NON,STAFF ~MTH0 0 Heart Score: C/O Chest Pain: N/A Risk Factors: Risk Factors: DM, Current or recent (<one month) smoker, HTN, HLP, family history of CAD, obesity. Risk Scores: Score 0 - 3: 2.5% MACE over next 6 weeks - Discharge Home Score 4 - 6: 20.3% MACE over next 6 weeks - Admit for Clinical Observation Score 7 - 10: 72.7% MACE over next 6 weeks - Early Invasive Strategies Course & Med Decision Making: Course & Med Decision Making Pertinent Labs and Imaging studies reviewed. (See chart for details Pt. requesting IV narcotics for her chronic pain. Advised would start with tylenol and or Tramadol. Pt. refused these meds. Pt. became angry and left AMA, before completing her evaluation. Pt. to stay on clear fluid diet only c 48 hrs. no solids. No milk products must allow bowel rest. Taking clear fluids such as apple juice, grape juice, popsicles, Jell-O, Pedialyte, Gatorade,. Continue use your home meds as previous directed. Follow-up with GI. Follow-up primary care. 1. Chronic Lt lower Abd. pain 2.. Episodes of diarrhea. 3.. Hx. Hypokalemia in past 4.. Obesity 5.. Depression 6, Hx. anxiety 7 . History of irritable bowel syndrome 8 Hx./ essential hypertension, 9. Hx. of questionable compliance medications 10.Hx of Anemia Hgb 8.t, Microcytic 11. Exhibits Possible Narcotic Seeking Behaviors 12. Left AMA- ( When no IV nracotics offered- Note pt. has Rx. for Hydrocodene at home) [] Zacarias Disclaimer: Zacarias Disclaimer: This electronic medical record was generated, in whole or in part, using a voice recognition dictation system. Departure Departure: Referrals: NON,STAFF (PCP) Zacarias Disclaimer This chart was dictated in whole or in part using Voice Recognition software in a busy, high-work load, and often noisy Emergency Department environment. It may contain unintended and wholly unrecognized errors or omissions. Dragon Disclaimer This chart was dictated in whole or in part using Voice Recognition software in a busy, high-work load, and often noisy Emergency Department environment. It may contain unintended and wholly unrecognized errors or omissions. MENDEZ VALDOVINOS MD Apr 20, 2021 18:24
[2021-04-20 19:19] LABS: BARBITURATES NEG (NEG); BENZODIAZEPINES POS (NEG); CANNABINOIDS NEG (NEG); COCAINE NEG (NEG); METHADONE NEG (NEG); OPIATES NEG (NEG); PHENCYCLIDINE NEG (NEG)
[2021-04-20 19:23] LABS: BACTERIA,URINE 0 /HPF (0-FEW); BILIRUBIN,URINE NEG (NEG); CLARITY,URINE CLEAR; COLOR,URINE YELLOW; GLUCOSE,URINE NEG (NEG); NITRITE,URINE NEG (NEG); RBC,URINE 0 /HPF (0-2); SQUAMOUS EPITHELIAL CELL,UR OCC /LPF; UROBILINOGEN,URINE 0.2 mg/dL (0.2 mg/dL); WBC,URINE OCC /HPF (0-4)
[2021-04-20 19:24] LABS: AMPHETAMINE/METHAMPHETAMINE NEG (NEG)
[2021-04-20 19:26] VITALS: BP 144/105
[2021-04-20] MEDS ORDERED: ONDANSETRON PF 4 MG/2 ML VIAL. IVP ONE (20:00)
[2021-04-20] MEDS ORDERED: IV RINGERS SOLUTION,LACTATED 1,000 ML IV SCH (20:00)
[2021-04-20] MEDS ORDERED: IOHEXOL 300 MG/ML 75 ML VIAL. IV ONE (20:15)
[2021-04-20] MEDS ORDERED: IOHEXOL 240 MG/ML 50ML VIAL. ONE (20:17)
--- NOTE | 2021-04-20 20:43 | RAD ---
Exam: Acute abdominal series INDICATION: Left lower abdominal pain TECHNIQUE: Frontal view of the chest with upright and supine views the abdomen Comparisons: None FINDINGS: The cardiomediastinal silhouette and pulmonary vessels are within normal limits. The lung and pleural spaces are clear. Air and stool are noted throughout the colon to level the rectum in a nonobstructive bowel gas patter n. No suspicious masses or calcifications. Visualized osseous structures are unremarkable. IMPRESSION: 1. No acute cardiopulmonary process. 2. Nonobstructive bowel gas pattern. Electronically signed by: Anna Liu MD (04/20/2021 8:40 PM) [facility]ICK
[2021-04-20 20:53] LABS: BASO # 0.1 x10^3/uL (0.0-0.2); BASO % 1 % (0-3); EOS # 0.1 x10^3/uL (0.0-0.7); EOS % 3 % (0-3); HEMATOCRIT 27.6 % (36.0-47.0); HEMOGLOBIN 8.7 g/dL (12.0-15.5); LYMPH # 0.5 x10^3/uL (1.0-4.8); LYMPH % 11 % (24-48); MEAN CORPUSCULAR HEMOGLOBIN 25 pg (25-35); MEAN CORPUSCULAR HGB CONC 32 g/dL (31-37); MEAN CORPUSCULAR VOLUME 78 fL (79-100); MONO # 0.5 x10^3/uL (0.0-1.1); MONO % 11 % (0-9); NEUT # 3.3 x10^3uL (1.8-7.7); NEUT % 74 % (31-73); PLATELET COUNT 226 x10^3/uL (140-400); RED BLOOD COUNT 3.52 x10^6/uL (3.50-5.40); RED CELL DISTRIBUTION WIDTH 14.9 % (11.5-14.5); WHITE BLOOD COUNT 4.5 x10^3/uL (4.0-11.0)
[2021-04-20 21:00] LABS: CALCIUM 8.6 mg/dL (8.5-10.1); CREATININE 0.7 mg/dL (0.6-1.0); GFR 87.9; POTASSIUM 3.6 mmol/L (3.5-5.1)
[2021-04-20] MEDS ORDERED: diphenhydrAMINE HCL 25 MG CAPSULE PO ONE (21:15)
[2021-04-20] MEDS ORDERED: ACETAMINOPHEN 500 MG TABLET PO ONE (21:15)
== END 2021-04-20 21:14 | disposition left against medical advice (07) ==
LOC: ER 18:11
DX: G89.29 Other chronic pain (principal); R10.32 Left lower quadrant pain; R19.7 Diarrhea, unspecified; F41.9 Anxiety disorder, unspecified; F32.9 Major depressive disorder, single episode, unspecified; K58.9 Irritable bowel syndrome, unspecified; I10 Essential (primary) hypertension; E66.9 Obesity, unspecified; E11.9 Type 2 diabetes mellitus without complications; M79.7 Fibromyalgia; K21.9 Gastro-esophageal reflux disease without esophagitis; E78.00 Pure hypercholesterolemia, unspecified; F17.210 Nicotine dependence, cigarettes, uncomplicated; Z87.442 Personal history of urinary calculi; Z90.89 Acquired absence of other organs; Z90.49 Acquired absence of other specified parts of digestive tract; Z90.710 Acquired absence of both cervix and uterus; Z86.2 Personal history of diseases of the blood and blood-forming organs and certain disorders involving the immune mechanism; Z68.36 Body mass index [BMI] 36.0-36.9, adult; Z88.1 Allergy status to other antibiotic agents; Z88.8 Allergy status to other drugs, medicaments and biological substances
CPT/HCPCS: 36415; 74022; 80048; 80307; 81001; 82150; 83690; 85025; 96361; 96374; 99284; J2405; J7120; 99285